=== PATIENT | female | born 1960 | race Asian ===

== ENCOUNTER 2017-04-30 15:49 | Emergency (ER) | payer MEDICARE, MEDICAID ==
--- NOTE | 2017-04-30 16:19 | ED Physician Chart ---
Chief Complaint/HPI - Patient Information Date Seen:: 04/30/17 Time Seen:: 16:08 Chief Complaint:: BLOOD IN THE URINE History of Present Illness:: THIS IS A CHRONICALLY 57 YO FEMALE SENT FROM THE SENIOR CARE BECAUSE OF BLOOD IN THE URINE. SHE HAS BRAIN DEGENERATIVE DISEASE AND HAS TROUBLE WITH ORAL INTAKE. SHE HAS HYPERTENSION AND SEIZURE DISORDER. Allergies:: Allergies Allergy/AdvReac Type Severity Reaction Status Date / Time No Known Allergies Allergy Verified 04/30/17 16:02 Vitals:: Vital Signs - 8 hr 04/30/17 16:03 Temp 99.2 F HR 53 RR 16 BP 140/92 O2 Sat % 95 Historian:: EMS, Medical Records Review:: Nurse's Note Reviewed, Transfer documents Reviewed Review of Systems - Review of Systems General/Constitutional: No fever, No chills, No weight loss, No weakness, No diaphoresis, No edema, No loss of appetite Skin: No skin lesions, No rash, No bruising Head: No headache, No light-headedness Eyes: No loss of vision, No pain, No diplopia ENT: No earache, No nasal drainage, No sore throat, No tinnitus Neck: No neck pain, No swelling, No thyromegaly, No stiffness, No mass noted Cardio Vascular: No chest pain, No palpitations, No PND, No orthopnea, No edema Pulmonary: No SOB, No cough, No sputum, No wheezing GI: No nausea, No vomiting, No diarrhea, No pain, No melena, No hematochezia, No constipation, No hematemesis G/U: No dysuria, No frequency, No hematuria Musculoskeletal: No bone or joint pain, No back pain, No muscle pain Endocrine: No polyuria, No polydipsia Psychiatric: No prior psych history, No depression, No anxiety, No suicidal ideation Hematopoietic: No bruising, No lymphadenopathy Allergic/Immuno: No urticaria, No angioedema Neurological: No syncope, Focal symptoms (LOWER EXTREMITIES PARALYSIS), Weakness , No paresthesia, No headache, No seizure, No dizziness, No confusion, No vertigo Past Medical History - Past Medical History Obtainable: Yes Past Medical History: HTN, CVA/TIA, Seizures, Dementia Family History: None Social History: Non Smoker, No Alcohol, No Drug Use Surgical History: None Psychiatricy History: None Medication: Reviewed Family Medical History - Family Member Mother History Unknown: Yes Physical Exam - Physical Examination General/Constitutional: Awake, Well-developed, well-nourished, Alert, No distress, GCS 15, Non-toxic appearing, Ambulatory Other Gen/Cons comments:: DISORIENTED TIMES FOUR AND VERBAL AT TIMES. Head: Atraumatic Eyes: Lids, conjuctiva normal, PERRL, EOMI Skin: Nl inspection, No rash, No skin lesions, No ecchymosis, Well hydrated, No lymphadenopathy ENMT: External ears, nose nl, Nasal exam nl, Lips, teeth, gums nl Neck: Nontender, Full ROM w/o pain, No JVD, No nuchal rigidity, No bruit, No mass, No stridor Respiratory: Nl effort/Exclusion, Clear to Auscultation, No Wheeze/Rhonchi/Rales Cardio Vascular: RRR, No murmur, gallop, rubs, NL S1 S2 GI: No tenderness/rebounding/guarding, No organomegaly, No hernia, Normal BS's, Nondistended, No mass/bruits, No McBurney tenderness : No CVA tenderness Other comments:: HAS A DIAPER ON Extremities: No tenderness or effusion, Full ROM, normal strength in all extremities, No edema, Normal digits & nails Neuro/Psych: DTR's symmetric, Normal sensory exam, Mood normal, Normal gait Other Neuro/Psych comments:: SHE HAS LOWER EXTREMITIES PARALYSIS WITH MUSCLE WASTING. Misc: normal gait, Normal back, No paraspinal tenderness Labs/Radiology/EKG Results - Lab Results Results: Abnormal Lab Results 04/30/17 04/30/17 04/30/17 16:13 16:13 16:13 WBC 8.0 RBC 4.63 Hgb 15.4 Hct 44.4 MCV 95.9 MCH 33.2 H MCHC Differential 34.6 RDW 13.6 Plt Count 262 MPV 6.7 Neutrophils % 68.2 Lymphocytes % 22.2 Monocytes % 8.5 Eosinophils % 0.4 Basophils % 0.7 Sodium 138 Potassium 3.9 Chloride 108 H Carbon Dioxide 25.7 Anion Gap 8.2 BUN 19 Creatinine 0.3 L Est GFR ( Amer) > 60.0 Est GFR (Non-Af Amer) > 60.0 BUN/Creatinine Ratio 63.3 Glucose 97 Calcium 9.2 Total Bilirubin 0.6 AST 25 ALT 54 H Alkaline Phosphatase 58 Troponin I < 0.01 L Total Protein 5.9 L Albumin 3.5 L Globulin 2.4 Albumin/Globulin Ratio 1.5 TSH Urine Source Urine Color Urine Clarity Urine pH Ur Specific [place] Urine Protein Urine Glucose (UA) Urine Ketones Urine Blood Urine Nitrate Urine Bilirubin Urine Urobilinogen Ur Leukocyte Esterase Urine RBC Urine WBC Ur Epithelial Cells Urine Bacteria Urine Mucus 04/30/17 04/30/17 16:13 16:30 WBC RBC Hgb Hct MCV MCH MCHC Differential RDW Plt Count MPV Neutrophils % Lymphocytes % Monocytes % Eosinophils % Basophils % Sodium Potassium Chloride Carbon Dioxide Anion Gap BUN Creatinine Est GFR ( Amer) Est GFR (Non-Af Amer) BUN/Creatinine Ratio Glucose Calcium Total Bilirubin AST ALT Alkaline Phosphatase Troponin I Total Protein Albumin Globulin Albumin/Globulin Ratio TSH 1.86 Urine Source CLEAN C Urine Color YELLOW Urine Clarity CLEAR Urine pH 6.0 Ur Specific [place] 1.010 Urine Protein NEGATIVE Urine Glucose (UA) NEGATIVE Urine Ketones NEGATIVE Urine Blood NEGATIVE Urine Nitrate NEGATIVE Urine Bilirubin NEGATIVE Urine Urobilinogen 0.2 Ur Leukocyte Esterase NEGATIVE Urine RBC NONE SEEN Urine WBC 2-5 Ur Epithelial Cells FEW Urine Bacteria FEW Urine Mucus FEW - Radiology Results Results: CHEST X-RAY =NAD - EKG Interpretations EKG Time:: 15:58 Rate & Rhythm: RATE= 57, [place]: LEFT AXIS Assessment - Assessment General Assessment: DEMENTIA ED Septic Shock - . Is Septic Shock (SBP<90, OR Lactate>4 mmol\L) present?: No - <6hrs of presentation: Vital Signs: Vital Signs - 8 hr 04/30/17 16:03 Temp 99.2 F HR 53 RR 16 BP 140/92 O2 Sat % 95 Reassessment (Disposition) - Reassessment Reassessment Condition:: Unchanged - Diagnosis Diagnosis:: DEMENTIA - Aftercare/Follow up Instructions Aftercare/Follow-Up Instructions:: Counseled pt regarding lab results/diagnosis & need follow up, Refer to Discharge Instructions, Counseled pt & family regarding lab results/diagnosis & need follow up - Patient Disposition Discharge/Transfer:: Sedimentationist Care - SNF Condition at Disposition:: Unchanged ED Discharge Plan - Patient Disposition Admit/Discharge/Transfer: Discharge/Transfered to SNF Instructions: Dementia Additional Instructions: TOLERATED.
[2017-04-30 16:47] LABS: % BASOPHILS 0.7 % (0.0-2.0); % EOSINOPHILS 0.4 % (0.0-5.0); % LYMPHOCYTES 22.2 % (20.0-50.0); % MONOCYTES 8.5 % (2.0-10.0); % NEUTROPHILS 68.2 % (40.0-80.0); HEMATOCRIT 44.4 % (35.0-45.0); HEMOGLOBIN 15.4 gm/dL (11.7-15.5); MEAN CELL VOLUME 95.9 fl (81-100); MEAN CORPUSCULAR HEMOGLOBIN 33.2 pg (27.0-31.0); MEAN CORPUSCULAR HGB CONC 34.6 pg (28.0-36.0); MEAN PLATELET VOLUME 6.7 fl; NEUTROPHILE ABSOLUTE 5.4 Th/cmm (1.8-8.0); PLATELET COUNT 262 Th/cmm (150-400); RED BLOOD COUNT 4.63 Mil/cmm (3.80-5.10); RED CELL DISTRIBUTION WIDTH 13.6 % (11.5-20.0)
[2017-04-30 17:05] LABS: ALB/GLOB RATIO 1.5 (1.0-1.8); ALKALINE PHOSPHATASE 58 U/L (34-104); ANION GAP 8.2 (7.0-16.0); BILIRUBIN,TOTAL 0.6 mg/dL (0.3-1.0); BUN - UREA NITROGEN 19 mg/dL (7-25); BUN/CREATININE RATIO 63.3; CALCIUM SERUM 9.2 mg/dL (8.6-10.3); CARBON DIOXIDE 25.7 mEq/L (21.0-31.0); CHLORIDE 108 mEq/L (98-107); CREATININE - SERUM 0.3 mg/dL (0.6-1.2); GLUCOSE 97 mg/dL (70-105); POTASSIUM SERUM 3.9 mEq/L (3.5-5.1); SGOT 25 U/L (13-39); SGPT/ALT 54 U/L (7-52); SODIUM SERUM 138 mEq/L (136-145)
[2017-04-30 17:07] LABS: URINE BILIRUBIN NEGATIVE (NEGATIVE); URINE BLOOD NEGATIVE (NEGATIVE); URINE GLUCOSE (UA) NEGATIVE (NEGATIVE); URINE KETONE NEGATIVE (NEGATIVE); URINE PROTEIN NEGATIVE (NEGATIVE); URINE UROBILINOGEN 0.2 E.U./dL (0.2 - 1.0)
[2017-04-30 17:12] LABS: URINE COLOR YELLOW
[2017-04-30 17:14] LABS: URINE BACTERIA FEW /hpf (NONE SEEN); URINE EPITHELIAL CELLS FEW /lpf (FEW); URINE RBC NONE SEEN /hpf (0-5)
--- NOTE | 2017-05-01 09:52 | Diagnostic Imaging Report ---
Portable chest x-ray Time: 1618 History: Shortness of breath Allowing for portable technique the heart size is normal. No focal pulmonary parenchymal processes. No hilar or mediastinal abnormalities. Mild left basilar atelectasis is noted Impression: No acute abnormalities.
== END 2017-04-30 19:25 ==
LOC: ER 15:49
DX: F03.90 Unspecified dementia, unspecified severity, without behavioral disturbance, psychotic disturbance, mood disturbance, and anxiety (principal); I10 Essential (primary) hypertension; G40.909 Epilepsy, unspecified, not intractable, without status epilepticus; Z86.73 Personal history of transient ischemic attack (TIA), and cerebral infarction without residual deficits
CPT/HCPCS: 36415-UA; 71010-TC; 80053-TC; 81001-TC; 84443-TC; 84484-TC; 85025-TC; 86592-TC; 93005; Z7610

== ENCOUNTER 2018-04-16 15:53 | Inpatient (IN) | payer MEDICARE, MEDICAID ==
--- NOTE | 2018-04-16 16:25 | ED Physician Chart ---
ED Chief Complaint/HPI - Patient Information Date Seen:: 04/16/18 Time Seen:: 16:10 Chief Complaint:: chest congestion History of Present Illness:: THIS IS A 58 YO FEMALE CHRONICALLY ILL FEMALE WHO IS DEMENTED AND PARAPLEGIC SENT TO THIS ER FOR AN EVALUATION OF HER CHEST CONGESTION. SHE HAS HYPERTENSION, CVA, PSYCHOSIS AND DEMENTIA. Allergies:: Allergies Allergy/AdvReac Type Severity Reaction Status Date / Time No Known Allergies Allergy Verified 04/30/17 16:02 Vitals:: Vital Signs - 8 hr 04/16/18 16:03 Temp 97.2 F HR 109 RR 22 BP 137/92 O2 Sat % 94 Historian:: EMS, Medical Records Review:: Nurse's Note Reviewed, Transfer documents Reviewed ED Review of Systems - Review of Systems General/Constitutional: No fever, No chills, No weight loss, No weakness, No diaphoresis, No edema, No loss of appetite, Other (PATIENT UNABLE TO RESPONDED) Skin: No skin lesions, No rash, No bruising Head: No headache, No light-headedness Eyes: No loss of vision, No pain, No diplopia ENT: No earache, No nasal drainage, No sore throat, No tinnitus Neck: No neck pain, No swelling, No thyromegaly, No stiffness, No mass noted Cardio Vascular: No chest pain, No palpitations, No PND, No orthopnea, No edema Pulmonary: No SOB, No cough, No sputum, No wheezing GI: No nausea, No vomiting, No diarrhea, No pain, No melena, No hematochezia, No constipation, No hematemesis G/U: No dysuria, No frequency, No hematuria Musculoskeletal: No bone or joint pain, No back pain, No muscle pain Endocrine: No polyuria, No polydipsia Psychiatric: No prior psych history, No depression, No anxiety, No suicidal ideation Hematopoietic: No bruising, No lymphadenopathy Allergic/Immuno: No urticaria, No angioedema Neurological: No syncope, No focal symptoms, No weakness, No paresthesia, No headache, No seizure, No dizziness, No confusion, No vertigo ED Past Medical History - Past Medical History Obtainable: Yes Past Medical History: HTN, DM, CVA/TIA, Dementia Family History: None Social History: Non Smoker, No Alcohol, No Drug Use, Care Facility Surgical History: None Psychiatricy History: Bipolar, Dementia Medication: Reviewed Family Medical History - Family Member Mother History Unknown: Yes ED Physical Exam - Physical Examination General/Constitutional: Awake, Well-developed, well-nourished, Alert, No distress, GCS 15, Non-toxic appearing, Ambulatory Other Gen/Cons comments:: LETHARGIC AND CONSTANTLY SCREAMING OUT AND IS OBESE Head: Atraumatic Eyes: Lids, conjuctiva normal, PERRL, EOMI Skin: No rash (RASH AROUND THE BASE OF THE NECK), No skin lesions, No ecchymosis , Well hydrated, No lymphadenopathy ENMT: External ears, nose nl, Nasal exam nl, Lips, teeth, gums nl Neck: Nontender, Full ROM w/o pain, No JVD, No nuchal rigidity, No bruit, No mass, No stridor Respiratory: Nl effort/Exclusion, Clear to Auscultation, No Wheeze/Rhonchi/Rales Cardio Vascular: RRR, No murmur, gallop, rubs, NL S1 S2 GI: No tenderness/rebounding/guarding, No organomegaly, No hernia, Normal BS's, Nondistended, No mass/bruits, No McBurney tenderness : No CVA tenderness Extremities: No tenderness or effusion, Full ROM, normal strength in all extremities, No edema, Normal digits & nails Neuro/Psych: Alert/oriented (THE PATIENT IS DISORIENTED TIMES FOUR), DTR's symmetric, Normal sensory exam, Normal motor strength (THE PATIENT HAS PARALYSIS OF THE BOTH LOWER WITH RIGHT UPPER EXTREMITY PARALYSIS.), Judgement/ insight normal, Mood normal, Normal gait, No focal deficits Misc: Normal back, No paraspinal tenderness ED Labs/Radiology/EKG Results - Lab Results Results: Abnormal Lab Results 04/16/18 04/16/18 04/16/18 16:07 16:10 16:10 WBC 11.4 H RBC 5.12 H Hgb 17.1 Hct 51.3 MCV 100.2 H MCH 33.3 H MCHC Differential 33.3 RDW 15.9 Plt Count 144 L MPV 9.2 Neutrophils % 70.9 Lymphocytes % 23.9 Monocytes % 4.3 Eosinophils % 0.1 Basophils % 0.8 PT 15.0 H INR 1.41 H PTT (Actin FS) 23.1 L Specimen Source Arterial Sample Site Right Radial pH 7.62 H* pCO2 35.0 pO2 45.0 L* HCO3 35.6 H Base Excess 13.9 H O2 Saturation 89.0 L Manjeet Test Positive Vent Rate NA Inspired O2 21 Tidal Volume NA PEEP NA Pressure (ins/psv/peep) NA Critical Value SH Sodium Potassium Chloride Carbon Dioxide Anion Gap BUN Creatinine Est GFR ( Amer) Est GFR (Non-Af Amer) BUN/Creatinine Ratio Glucose Calcium Total Bilirubin AST ALT Alkaline Phosphatase Troponin I Total Protein Albumin Globulin Albumin/Globulin Ratio TSH Valproic Acid 04/16/18 04/16/18 04/16/18 16:10 16:10 16:10 WBC RBC Hgb Hct MCV MCH MCHC Differential RDW Plt Count MPV Neutrophils % Lymphocytes % Monocytes % Eosinophils % Basophils % PT INR PTT (Actin FS) Specimen Source Sample Site pH pCO2 pO2 HCO3 Base Excess O2 Saturation Manjeet Test Vent Rate Inspired O2 Tidal Volume PEEP Pressure (ins/psv/peep) Critical Value Sodium 146 H Potassium 2.6 L* Chloride 105 Carbon Dioxide 31.6 H Anion Gap 12.0 BUN 17 Creatinine 0.4 L Est GFR ( Amer) > 60.0 Est GFR (Non-Af Amer) > 60.0 BUN/Creatinine Ratio 42.5 Glucose 101 Calcium 8.8 Total Bilirubin 0.9 AST 41 H ALT 49 Alkaline Phosphatase 47 Troponin I 0.05 Total Protein 5.4 L Albumin 3.2 L Globulin 2.2 Albumin/Globulin Ratio 1.5 TSH 8.06 H Valproic Acid 04/16/18 16:10 WBC RBC Hgb Hct MCV MCH MCHC Differential RDW Plt Count MPV Neutrophils % Lymphocytes % Monocytes % Eosinophils % Basophils % PT INR PTT (Actin FS) Specimen Source Sample Site pH pCO2 pO2 HCO3 Base Excess O2 Saturation Manjeet Test Vent Rate Inspired O2 Tidal Volume PEEP Pressure (ins/psv/peep) Critical Value Sodium Potassium Chloride Carbon Dioxide Anion Gap BUN Creatinine Est GFR ( Amer) Est GFR (Non-Af Amer) BUN/Creatinine Ratio Glucose Calcium Total Bilirubin AST ALT Alkaline Phosphatase Troponin I Total Protein Albumin Globulin Albumin/Globulin Ratio TSH Valproic Acid 86.6 - Radiology Results Results: ct scan = right lower lobe pneumonia - EKG Interpretations EKG Time:: 16:34 Rate & Rhythm: rate = 121 sinus tach [place]: right ED Assessment - Assessment General Assessment: pneumonia ED Septic Shock - . Is Septic Shock (SBP<90, OR Lactate>4 mmol\L) present?: No - <6hrs of presentation: Vital Signs: Vital Signs - 8 hr 04/16/ 16:03 Temp 97.2 F HR 109 RR 22 BP 137/92 O2 Sat % 94 ED Reassessment (Disposition) - Reassessment Reassessment Condition:: Improved - Diagnosis Diagnosis:: pneumonia bilateral effusions demented - Patient Disposition Discharge/Transfer:: Acute Care w/in this hosp Admitted to:: Telemetry Admitting Medical Physician:: Sadaf Wallace Condition at Disposition:: Improved
[2018-04-16 16:41] LABS: % BASOPHILS 0.8 % (0.0-2.0); % EOSINOPHILS 0.1 % (0.0-5.0); % LYMPHOCYTES 23.9 % (20.0-50.0); % MONOCYTES 4.3 % (2.0-10.0); % NEUTROPHILS 70.9 % (40.0-80.0); BASOPHILE ABSOLUTE 0.1 Th/cumm (0-0.2); HEMATOCRIT 51.3 % (41.0-60); HEMOGLOBIN 17.1 gm/dL (12-16); LYMPHOCYTE ABSOLUTE 2.7 Th/cmm (1.5-3.0); MEAN CELL VOLUME 100.2 fl (81-100); MEAN CORPUSCULAR HEMOGLOBIN 33.3 pg (27.0-31.0); MEAN CORPUSCULAR HGB CONC 33.3 pg (28.0-36.0); MEAN PLATELET VOLUME 9.2 fl; MONOCYTE ABSOLUTE 0.5 Th/cmm (0.3-1.0); NEUTROPHILE ABSOLUTE 8.1 Th/cmm (1.8-8.0); PLATELET COUNT 144 Th/cmm (150-400); RED BLOOD COUNT 5.12 Mil/cmm (3.80-5.10); RED CELL DISTRIBUTION WIDTH 15.9 % (11.5-20.0); WHITE BLOOD COUNT 11.4 Th/cmm (4.8-10.8)
[2018-04-16 16:54] LABS: ALLEN TEST Positive
[2018-04-16 16:55] LABS: pH 7.62 (7.35-7.45)
[2018-04-16 16:55] LABS: INR 1.41 (0.5-1.4)
[2018-04-16 17:06] LABS: ALB/GLOB RATIO 1.5 (1.0-1.8); ALBUMIN 3.2 gm/dL (3.7-5.3); ALKALINE PHOSPHATASE 47 U/L (34-104); BILIRUBIN,TOTAL 0.9 mg/dL (0.3-1.0); BUN - UREA NITROGEN 17 mg/dL (7-25); CALCIUM SERUM 8.8 mg/dL (8.6-10.3); CARBON DIOXIDE 31.6 mEq/L (21.0-31.0); CHLORIDE 105 mEq/L (98-107); CREATININE - SERUM 0.4 mg/dL (0.6-1.2); GFR AFRICAN-AMERICAN > 60.0 ml/min (>90); GFR NON AFRICAN-AMERICAN > 60.0 ml/min; GLUCOSE 101 mg/dL (70-105); SGOT 41 U/L (13-39); SGPT/ALT 49 U/L (7-52); SODIUM SERUM 146 mEq/L (136-145); TOTAL PROTEIN,SERUM 5.4 gm/dL (6.0-8.3)
[2018-04-16 17:11] LABS: POTASSIUM SERUM 2.6 mEq/L (3.5-5.1)
[2018-04-16] MEDS ORDERED: Potassium Chloride Elixir 20 mEq /15 mL UDC ONE ×2 (17:36→17:42)
[2018-04-16] MEDS ORDERED: Potassium Chloride Elixir 20 mEq /15 mL UDC PO ONE ×2 (17:36→17:37)
[2018-04-16] MEDS ORDERED: Albuterol/Ipratropium Neb 3 ML AERS HHN PRN (19:22)
[2018-04-16] MEDS ORDERED: D5-0.45NS 1,000 ML IV SCH (21:16)
[2018-04-16] MEDS ORDERED: Non-Formulary Item 1 EA (Docusate Sodium [Docusate Sodium] 100 MG) PO PRN (21:43)
[2018-04-16] MEDS: D5-0.45NS w/20 mEq KCL 1,000 ML IV SCH (23:03)
[2018-04-17] MEDS: Albuterol/Ipratropium Neb 3 ML AERS HHN SCH ×9 (00:07→23:56)
[2018-04-17] MEDS: Budesonide 0.5 Mg/2 mL Ud HHN SCH ×3 (00:07→18:24)
[2018-04-17] MEDS: methylPREDNISolone SS 40 mg Vial IV SCH ×4 (00:21→20:40)
[2018-04-17 00:23] LABS: URINE MICROSCOPIC INDICATED? YES; URINE SOURCE FOLEY PORT
[2018-04-17 00:26] LABS: URINE BILIRUBIN SMALL (NEGATIVE); URINE BLOOD MODERATE (NEGATIVE); URINE GLUCOSE (UA) NEGATIVE (NEGATIVE); URINE KETONE TRACE mg/dL (NEGATIVE); URINE LEUKOCYTE ESTERASE NEGATIVE (NEGATIVE); URINE NITRATE NEGATIVE (NEGATIVE); URINE PROTEIN 100 mg/dL (NEGATIVE)
[2018-04-17] MEDS ORDERED: Pneumococcal Vaccine 0.5 mL Vial IM ONE (00:49)
[2018-04-17 00:55] LABS: URINE CLARITY HAZY (CLEAR); URINE COLOR YELLOW
[2018-04-17 01:01] LABS: URINE BACTERIA NONE SEEN /hpf (NONE SEEN); URINE EPITHELIAL CELLS FEW /lpf (FEW); URINE WBC 0-2 /hpf (0-5)
[2018-04-17 05:07] VITALS: BP 118/67
[2018-04-17 06:25] LABS: ALB/GLOB RATIO 1.3 (1.0-1.8); ALBUMIN 2.9 gm/dL (3.7-5.3); ALKALINE PHOSPHATASE 41 U/L (34-104); ANION GAP 11.6 (7.0-16.0); BILIRUBIN,TOTAL 0.7 mg/dL (0.3-1.0); BUN - UREA NITROGEN 21 mg/dL (7-25); CALCIUM SERUM 8.4 mg/dL (8.6-10.3); CARBON DIOXIDE 30.8 mEq/L (21.0-31.0); CHLORIDE 108 mEq/L (98-107); CREATININE - SERUM 0.4 mg/dL (0.6-1.2); GFR AFRICAN-AMERICAN > 60.0 ml/min (>90); GFR NON AFRICAN-AMERICAN > 60.0 ml/min; GLUCOSE 158 mg/dL (70-105); POTASSIUM SERUM 3.4 mEq/L (3.5-5.1); SGOT 31 U/L (13-39); SGPT/ALT 40 U/L (7-52); SODIUM SERUM 147 mEq/L (136-145); TOTAL PROTEIN,SERUM 5.1 gm/dL (6.0-8.3)
--- NOTE | 2018-04-17 07:15 | History and Physical ---
History of Present Illness - HPI Chief Complaint: Chest Congestion HPI: 58 y/o F who presents to [facility] for shortness of breath and chest congestion noted at the SNF. While in the ER patient had a CT chest which revealed the following ... - Radiology Results Results: ct scan = right lower lobe pneumonia Patient was started on IV antibiotics and given breathing treatements. While in the ER, the patient had the following labwork which revealed ... ED Labs/Radiology/EKG Results - Lab Results Results: Abnormal Lab Results 04/16/18 04/16/18 04/16/18 16:07 16:10 16:10 WBC 11.4 H RBC 5.12 H Hgb 17.1 Hct 51.3 MCV 100.2 H MCH 33.3 H MCHC Differential 33.3 RDW 15.9 Plt Count 144 L MPV 9.2 Neutrophils % 70.9 Lymphocytes % 23.9 Monocytes % 4.3 Eosinophils % 0.1 Basophils % 0.8 PT 15.0 H INR 1.41 H PTT (Actin FS) 23.1 L Specimen Source Arterial Sample Site Right Radial pH 7.62 H* pCO2 35.0 pO2 45.0 L* HCO3 35.6 H Base Excess 13.9 H O2 Saturation 89.0 L Manjeet Test Positive Vent Rate NA Inspired O2 21 Tidal Volume NA PEEP NA Pressure (ins/psv/peep) NA Critical Value SH Sodium Potassium Chloride Carbon Dioxide Anion Gap BUN Creatinine Est GFR ( Amer) Est GFR (Non-Af Amer) BUN/Creatinine Ratio Glucose Calcium Total Bilirubin AST ALT Alkaline Phosphatase Troponin I Total Protein Albumin Globulin Albumin/Globulin Ratio TSH Valproic Acid 04/16/18 04/16/18 04/16/18 16:10 16:10 16:10 WBC RBC Hgb Hct MCV MCH MCHC Differential RDW Plt Count MPV Neutrophils % Lymphocytes % Monocytes % Eosinophils % Basophils % PT INR PTT (Actin FS) Specimen Source Sample Site pH pCO2 pO2 HCO3 Base Excess O2 Saturation Manjeet Test Vent Rate Inspired O2 Tidal Volume PEEP Pressure (ins/psv/peep) Critical Value Sodium 146 H Potassium 2.6 L* Chloride 105 Carbon Dioxide 31.6 H Anion Gap 12.0 BUN 17 Creatinine 0.4 L Est GFR ( Amer) > 60.0 Est GFR (Non-Af Amer) > 60.0 BUN/Creatinine Ratio 42.5 Glucose 101 Calcium 8.8 Total Bilirubin 0.9 AST 41 H ALT 49 Alkaline Phosphatase 47 Troponin I 0.05 Total Protein 5.4 L Albumin 3.2 L Globulin 2.2 Albumin/Globulin Ratio 1.5 TSH 8.06 H Valproic Acid 04/16/18 16:10 WBC RBC Hgb Hct MCV MCH MCHC Differential RDW Plt Count MPV Neutrophils % Lymphocytes % Monocytes % Eosinophils % Basophils % PT INR PTT (Actin FS) Specimen Source Sample Site pH pCO2 pO2 HCO3 Base Excess O2 Saturation Manjeet Test Vent Rate Inspired O2 Tidal Volume PEEP Pressure (ins/psv/peep) Critical Value Sodium Potassium Chloride Carbon Dioxide Anion Gap BUN Creatinine Est GFR ( Amer) Est GFR (Non-Af Amer) BUN/Creatinine Ratio Glucose Calcium Total Bilirubin AST ALT Alkaline Phosphatase Troponin I Total Protein Albumin Globulin Albumin/Globulin Ratio TSH Valproic Acid 86.6 Patient was subsequently admitted for further evaluation and treatment. Vital Signs: Last Vital Signs Temp 87.8 F 04/17/18 04:00 Pulse 78 04/17/18 04:00 Resp 20 04/17/18 06:48 BP 118/67 04/17/18 05:07 Pulse Ox 96 04/17/18 06:48 Past Medical History Cardiovascular: Report: CAD, HTN, Hyperlipidemia Pulmonary: Report: No Pertinent Hx LONG TERM CARE PHARMACIST: Report: CVA (with hemiplegia and hemiparesis), Seizure, Other (aphasia) GI: Report: GERD Psych: Report: Anxiety Musculoskeletal: Report: Osteoarthritis, Muscle Atrophy, Weakness Infectious Disease: Report: No Pertinent Hx Renal/: Report: No Pertinent Hx Endocrine: Report: No Pertinent Hx Dermatology: Report: No Pertinent Hx - Past Surgical History Past Surgical History: No pertinent Hx Family Medical History - Family Member Mother History Unknown: Yes Social History Smoke: No Alcohol: None Drugs: None Lives: Custodial - Medications Home Medications: Home Medication Medication Instructions Recorded Type Amlodipine Besylate 10 mg PO DAILY 04/30/17 History Cyanocobalamin [Vitamin B12] 100 mcg PO DAILY 04/30/17 History Docusate Sodium 100 mg PO DAILY 04/30/17 History Docusate Sodium 100 mg PO DAILY PRN 04/30/17 History Levetiracetam [Keppra] 500 mg PO BID 04/30/17 History Metoprolol Tartrate 25 mg PO BID 04/30/17 History Multivitamin w/ Minerals 1 tab PO DAILY 04/30/17 History [Theragran M] Amlodipine Besylate 10 mg PO DAILY 04/16/18 History Bisacodyl [Dulcolax 10 Mg Supp] 10 mg RC DAILY PRN 04/16/18 History Divalproex ER [Depakote ER] 500 mg PO BID 04/16/18 History Melatonin/Pyridoxine HCl (B6) 1 each PO 04/16/18 History [Melatonin 3 mg Tablet] QUEtiapine Fumarate [SEROquel] 12.5 mg PO BID 04/16/18 History Simvastatin [Zocor] 10 mg PO HS 04/16/18 History - Allergies Allergies/Adverse Reactions: Allergies Allergy/AdvReac Type Severity Reaction Status Date / Time No Known Allergies Allergy Verified 04/30/17 16:02 Review of Systems - Review of Systems Constitutional: Report: No Significant Eyes: Report: No Significant ENT: Report: No Significant Respiratory: Report: Shortness of Breath Cardiovascular: Report: No Significant Gastrointestinal: Report: No Significant Genitourinary: Report: No Significant Musculoskeletal: Report: No Significant Skin: Report: No Significant Neurological: Report: No Significant Physical Exam - Physical Exam HEENT: Report: Ears Nose Throat within normal limits, Pharnyx within normal limits Neck: Report: Within normal limits Cardiovascular Systems: Report: +s1/s2 noted Respiratory: Report: Crackles (right lung base) Abdomen: Report: Non-tender to palpation Back: Report: Inspection of back is within normal limits. Extremities: Report: Non-tender to palpation. Skin: Report: Color of skin is within normal limits Neuro/Psych: Report: Mood affect is within normal limits, A+Ox3 - Lab Results All Lab Results last 24 hours: Laboratory Results - last 24 hr 04/16/18 04/16/18 04/16/18 16:07 16:10 16:10 WBC 11.4 H RBC 5.12 H Hgb 17.1 Hct 51.3 MCV 100.2 H MCH 33.3 H MCHC Differential 33.3 RDW 15.9 Plt Count 144 L MPV 9.2 Neutrophils % 70.9 Lymphocytes % 23.9 Monocytes % 4.3 Eosinophils % 0.1 Basophils % 0.8 PT 15.0 H INR 1.41 H PTT (Actin FS) 23.1 L Specimen Source Arterial Sample Site Right Radial pH 7.62 H* pCO2 35.0 pO2 45.0 L* HCO3 35.6 H Base Excess 13.9 H O2 Saturation 89.0 L Manjeet Test Positive Vent Rate NA Inspired O2 21 Tidal Volume NA PEEP NA Pressure (ins/psv/peep) NA Critical Value SH Sodium Potassium Chloride Carbon Dioxide Anion Gap BUN Creatinine Est GFR ( Amer) Est GFR (Non-Af Amer) BUN/Creatinine Ratio Glucose Calcium Magnesium Total Bilirubin AST ALT Alkaline Phosphatase Troponin I B-Natriuretic Peptide Total Protein Albumin Globulin Albumin/Globulin Ratio TSH Urine Source Urine Color Urine Clarity Urine pH Ur Specific [place] Urine Protein Urine Glucose (UA) Urine Ketones Urine Blood Urine Nitrate Urine Bilirubin Urine Urobilinogen Ur Leukocyte Esterase Urine RBC Urine WBC Ur Epithelial Cells Urine Bacteria Valproic Acid 04/16/18 04/16/18 04/16/18 16:10 16:10 16:10 WBC RBC Hgb Hct MCV MCH MCHC Differential RDW Plt Count MPV Neutrophils % Lymphocytes % Monocytes % Eosinophils % Basophils % PT INR PTT (Actin FS) Specimen Source Sample Site pH pCO2 pO2 HCO3 Base Excess O2 Saturation Manjeet Test Vent Rate Inspired O2 Tidal Volume PEEP Pressure (ins/psv/peep) Critical Value Sodium 146 H Potassium 2.6 L* Chloride 105 Carbon Dioxide 31.6 H Anion Gap 12.0 BUN 17 Creatinine 0.4 L Est GFR ( Amer) > 60.0 Est GFR (Non-Af Amer) > 60.0 BUN/Creatinine Ratio 42.5 Glucose 101 Calcium 8.8 Magnesium Total Bilirubin 0.9 AST 41 H ALT 49 Alkaline Phosphatase 47 Troponin I 0.05 B-Natriuretic Peptide Total Protein 5.4 L Albumin 3.2 L Globulin 2.2 Albumin/Globulin Ratio 1.5 TSH 8.06 H Urine Source Urine Color Urine Clarity Urine pH Ur Specific [place] Urine Protein Urine Glucose (UA) Urine Ketones Urine Blood Urine Nitrate Urine Bilirubin Urine Urobilinogen Ur Leukocyte Esterase Urine RBC Urine WBC Ur Epithelial Cells Urine Bacteria Valproic Acid 04/16/18 04/16/18 04/16/18 16:10 23:40 23:40 WBC RBC Hgb Hct MCV MCH MCHC Differential RDW Plt Count MPV Neutrophils % Lymphocytes % Monocytes % Eosinophils % Basophils % PT INR PTT (Actin FS) Specimen Source Sample Site pH pCO2 pO2 HCO3 Base Excess O2 Saturation Manjeet Test Vent Rate Inspired O2 Tidal Volume PEEP Pressure (ins/psv/peep) Critical Value Sodium Potassium Chloride Carbon Dioxide Anion Gap BUN Creatinine Est GFR ( Amer) Est GFR (Non-Af Amer) BUN/Creatinine Ratio Glucose Calcium Magnesium 2.1 Total Bilirubin AST ALT Alkaline Phosphatase Troponin I B-Natriuretic Peptide 232.0 H Total Protein Albumin Globulin Albumin/Globulin Ratio TSH Urine Source Urine Color Urine Clarity Urine pH Ur Specific [place] Urine Protein Urine Glucose (UA) Urine Ketones Urine Blood Urine Nitrate Urine Bilirubin Urine Urobilinogen Ur Leukocyte Esterase Urine RBC Urine WBC Ur Epithelial Cells Urine Bacteria Valproic Acid 86.6 04/17/18 04/17/18 00:15 05:50 WBC RBC Hgb Hct MCV MCH MCHC Differential RDW Plt Count MPV Neutrophils % Lymphocytes % Monocytes % Eosinophils % Basophils % PT INR PTT (Actin FS) Specimen Source Sample Site pH pCO2 pO2 HCO3 Base Excess O2 Saturation Manjeet Test Vent Rate Inspired O2 Tidal Volume PEEP Pressure (ins/psv/peep) Critical Value Sodium 147 H Potassium 3.4 L Chloride 108 H Carbon Dioxide 30.8 Anion Gap 11.6 BUN 21 Creatinine 0.4 L Est GFR ( Amer) > 60.0 Est GFR (Non-Af Amer) > 60.0 BUN/Creatinine Ratio 52.5 Glucose 158 H Calcium 8.4 L Magnesium Total Bilirubin 0.7 AST 31 ALT 40 Alkaline Phosphatase 41 Troponin I B-Natriuretic Peptide Total Protein 5.1 L Albumin 2.9 L Globulin 2.2 Albumin/Globulin Ratio 1.3 TSH Urine Source [place] Urine Color YELLOW Urine Clarity HAZY Urine pH 6.0 Ur Specific [place] 1.025 Urine Protein 100 H Urine Glucose (UA) NEGATIVE Urine Ketones TRACE Urine Blood MODERATE H Urine Nitrate NEGATIVE Urine Bilirubin SMALL H Urine Urobilinogen 1.0 Ur Leukocyte Esterase NEGATIVE Urine RBC 5-10 H Urine WBC 0-2 Ur Epithelial Cells FEW Urine Bacteria NONE SEEN Valproic Acid - Assessment Assessment: LLL pneumonia abdominal mass Sepsis UTI leukocytosis Willie. pleural effusion CVA w/ hemiplegia Seizure disorder HTN Hyperlipidemia CAD PUD GERD OA - Plan Plan: pulmonary consult w/ Dr. Gato Jiménez IV Rocephin and IV Azithromycin repeat CBC, CMP breathing treatments K+ supplements ID consult CT ab/pelvis
[2018-04-17 07:21] LABS: % BASOPHILS 0.1 % (0.0-2.0); % EOSINOPHILS 0.1 % (0.0-5.0); % LYMPHOCYTES 17.6 % (20.0-50.0); % MONOCYTES 5.2 % (2.0-10.0); HEMATOCRIT 49.8 % (41.0-60); HEMOGLOBIN 16.4 gm/dL (12-16); LYMPHOCYTE ABSOLUTE 2.4 Th/cmm (1.5-3.0); MEAN CELL VOLUME 100.8 fl (81-100); MEAN CORPUSCULAR HEMOGLOBIN 33.1 pg (27.0-31.0); MEAN CORPUSCULAR HGB CONC 32.9 pg (28.0-36.0); MEAN PLATELET VOLUME 9.6 fl; MONOCYTE ABSOLUTE 0.7 Th/cmm (0.3-1.0); NEUTROPHILE ABSOLUTE 10.8 Th/cmm (1.8-8.0); PLATELET COUNT 134 Th/cmm (150-400); RED BLOOD COUNT 4.94 Mil/cmm (3.80-5.10); RED CELL DISTRIBUTION WIDTH 15.8 % (11.5-20.0)
[2018-04-17 07:23] LABS: WHITE BLOOD COUNT 13.9 Th/cmm (4.8-10.8)
--- NOTE | 2018-04-17 09:17 | Diagnostic Imaging Report ---
Exam: Chest x-ray 2 views. HISTORY: Pneumonia. Findings: Frontal lateral views of chest reviewed compared to prior study 04/30/2017 demonstrates cardiomegaly. There is evidence for left lower lobe pneumonia and effusion. Bony thorax intact. The aortic arch calcified. IMPRESSION: 1. Cardiomegaly 2. Left lower lobe pneumonia and effusion. Follow-up examination is recommended.
[2018-04-17] MEDS: Multivitamin w/ Minerals Tab PO SCH (09:30)
--- NOTE | 2018-04-17 09:42 | Diagnostic Imaging Report ---
Exam: CT examination of the chest HISTORY: Congestion. Total DLP equals 3041 CTDI equals 10.0 Findings: Multiple contiguous thin section of the chest were obtained from thoracic outlet to the upper abdomen without the administration of contrast material therefore the study is limited. The study demonstrates normal appearance of great vessels of the neck adenopathy cannot be excluded due to lack of contrast material. Mediastinal structures midline the heart is prominent. The aorta is calcified. There is evidence of basilar atelectasis bilaterally with pleural thickening. No acute pulmonic infiltrates appreciated. Bony thorax demonstrate no evidence for lytic or blastic lesions. The upper abdomen and straight cholelithiasis. The stomach is enlarged there is a question of a dense fundus of the stomach measuring 10 cm in the AP diameter this might represent a stomach neoplasm clinical correlation and endoscopy would be helpful. Examination the abdomen with contrast material may be helpful. Incidentally noted nonobstructing right renal calculus. IMPRESSION: Cardiomegaly, atherosclerotic calcification of aortic arch Basilar atelectasis with pleural thickening early right basilar infiltrate cannot be excluded follow-up dictation recommended. Large intra-abdominal mass abutting the left lobe of liver and stomach measuring 10 cm in diameter. It arises from the stomach is noted clear. CT examination of the abdomen with contrast material is recommended. COMPARISON to old studies would be helpful. The nurses station was notified of findings.
[2018-04-17] MEDS: Azithromycin 500 MG in Sodium Chloride 0.9% 250 ML IV SCH (11:18)
[2018-04-17] MEDS ORDERED: IOHEXOL 300mgI/mL 100 ML VIAL ONE (12:37)
[2018-04-17] MEDS ORDERED: Non-Formulary Item 1 EA (Melatonin/Pyridoxine Hcl (B6) [Melatonin 3 Mg Tablet] 1 EACH) PO SCH (17:00)
--- NOTE | 2018-04-17 22:36 | Consultation ---
DATE OF CONSULTATION: 04/16/2018 PULMONARY AND CRITICAL CARE CONSULTATION REASON FOR CONSULTATION: "Chest congestion with respiratory failure." CONSULT NOTE: This is a 58-year-old female basically coming from the convalescent home. The patient has a multitude of medical therapy and she is quite altered. Meaningful history could not be taken as there is a G-tube, was admitted initially "because of chest congestion and shortness of breath." Subsequently after coming in the hospital, the patient's symptoms got more worse, hence I was asked to see this patient for further care and necessary treatment. Unfortunately, the patient is not able to give me any history at this particular time. The patient barely opens eyes, mildly responds to the painful stimuli, but otherwise unremarkable. The patient's past medical history is seizure disorder, history of CVA, history of anxiety disorder, history of muscle wasting with history of contractures of the right side, history of recurrent urosepsis as well as a history of being a "fairly vegetative state" according to the notes from the convalescent home. Unfortunately, meaningful detailed history from the patient is not available to me at this particular time. PAST MEDICAL HISTORY: As mentioned above. ALLERGIC HISTORY: Nil. SMOKING HISTORY: Nil. PHYSICAL FINDINGS: GENERAL: This is an elderly looking female, is not responding, is currently on BiPAP. VITAL SIGNS: The patient's current recorded vital signs; temperature is 98.0, blood pressure is 97.8, blood pressure is 116/88, saturation is 96%-98%, but currently on a BiPAP at 70% of oxygen. HEENT: Examination of the head is essentially unremarkable. Pupils appear to be equal and reacting to light. Conjunctivae are pink. Sclerae are white. Ears, externally okay. Oral cavity, limited exam being on a BiPAP, appears to have dentures. No nuchal rigidity. Good bilateral carotid upstroke. CHEST: Finding shows diminished air entry with occasional rhonchi. HEART: Regular. ABDOMEN: Soft, nontender. EXTREMITIES: Shows lot of atrophic changes. LABORATORY DATA: The patient's white count is 11,400, hemoglobin 7 grams. The patient's ABG shows severe respiratory alkalosis, initially 1 and potassium is 2.6 and the patient's lactic acid 2.01. IMPRESSION: 1. The patient has acute respiratory failure secondary to tracheobronchitis. There is a questionable right basilar interstitial changes versus atelectasis. 2. Altered level of consciousness, we suspect sleep apnea syndrome. 3. History of cerebrovascular accident, history of seizure disorder, history of "vegetative state with significant muscular atrophy." PLANS AND SUGGESTIONS: I have discussed with the nursing staff at nighttime. We will go ahead and give aggressive inhalation treatment with DuoNeb. We will give Pulmicort. We will give BiPAP. We will get a better evaluation once more studies are available. Overall, prognosis appears to be very much guarded and will be glad to follow along with you. JOB# [id number]
[2018-04-17] MEDS: D5-0.45NS w/20 mEq KCL 1,000 ML IV SCH (23:23)
--- NOTE | 2018-04-18 00:51 | Consultation ---
DATE OF CONSULTATION: 04/17/2018 INFECTIOUS DISEASE CONSULTATION REFERRING PHYSICIAN: Dr. Dominic Chandler. REASON FOR CONSULTATION: Pneumonia. HISTORY OF PRESENT ILLNESS: The patient is a 58-year-old female with a past medical history of dementia, paraplegia, hypertension, CVA, psychosis, was sent to the ER for evaluation of her chest congestion and shortness of breath. On initial evaluation, her temperature was 97.2 degree Fahrenheit and WBC count was 11,400. Today, the patient's WBC count went up to 13,900. The patient was also found to be in respiratory failure with hypoxia. Lactic acid was also on higher side, 2.01. Repeat one was 1.93. Urinalysis showed leukoesterase negative, rbc's 5-10 and wbc's 0-[address] scan of the chest showed a right lower lobe infiltrate pneumonia. Antibiotic-escobar, the patient is receiving Rocephin and Zithromax. The patient is on BiPAP. The patient is unable to give any history because of mental status. PAST MEDICAL HISTORY: Includes CVA, dementia, hypertension, psychosis, paraplegia. ALLERGIES: NKDA. MEDICATIONS: As per medication reconciliation sheet. Antibiotic-escobar, the patient is receiving Rocephin and Zithromax. SOCIAL HISTORY: No history of smoking, alcohol or drug use. Lives at care facility. FAMILY HISTORY: Not available. REVIEW OF SYSTEMS: Unable to give any history, but so far, the patient has no fever. The patient has chest congestion, which is improving. PHYSICAL EXAMINATION: GENERAL: The patient is well developed, not in acute distress. VITAL SIGNS: Shows temperature is 97.6 degrees Fahrenheit, pulse 83, respirations 16, blood pressure 125/84, oxygen saturation 94% on BiPAP. HEENT: Head is normocephalic, atraumatic. Oral cavity moist, pink tongue. Eyes: Pallor is present, no icterus. PERRLA, EOMI. NECK: Supple, no JVD, no carotid bruit. Trachea is midline. CHEST: Bilateral breath sounds. Decreased breath sound. HEART: S1, S2 within normal limits. Regular rhythm. No murmur, no gallop. ABDOMEN: Soft, nontender, nondistended. Bowel sounds present. EXTREMITIES: No cyanosis, no clubbing, no edema. NEUROLOGIC: Unresponsive, responds to painful stimuli only. LABORATORY DATA: WBC count 13,900, hemoglobin 16.4, hematocrit 49.8, platelets are 134,000, neutrophils 77%. Sodium is 147, potassium 3.4, chloride 108, bicarbonate is 30.8, BUN is 21, creatinine 0.4, glucose is 158. Lactic acid was 2.01, it came down to 1.93. Urinalysis showed small bilirubin, negative leukoesterase, negative nitrite. WBC 5-10. No bacteria. CT scan of the chest suggested a possible right lower lobe infiltrates, suspecting pneumonia. IMPRESSION: 1. Lactic acidosis. 2. Right lower lobe pneumonia. 3. Dementia. 4. Cerebrovascular accident. 5. Hypertension. RECOMMENDATIONS: Continue Rocephin and Zithromax. Thank you, Dr. Dominic Chandler for involving me in taking care of this patient. JOB# [id number]
[2018-04-18] MEDS: Albuterol/Ipratropium Neb 3 ML AERS HHN SCH ×7 (02:47→22:12)
[2018-04-18] MEDS: methylPREDNISolone SS 40 mg Vial IV SCH ×3 (04:28→20:56)
[2018-04-18 05:30] LABS: % BASOPHILS 0.2 % (0.0-2.0); % LYMPHOCYTES 15.2 % (20.0-50.0); % MONOCYTES 3.2 % (2.0-10.0); % NEUTROPHILS 81.4 % (40.0-80.0); HEMOGLOBIN 14.1 gm/dL (12-16); LYMPHOCYTE ABSOLUTE 1.7 Th/cmm (1.5-3.0); MEAN CELL VOLUME 100.5 fl (81-100); MEAN CORPUSCULAR HEMOGLOBIN 33.4 pg (27.0-31.0); MEAN CORPUSCULAR HGB CONC 33.2 pg (28.0-36.0); MEAN PLATELET VOLUME 8.9 fl; MONOCYTE ABSOLUTE 0.4 Th/cmm (0.3-1.0); PLATELET COUNT 130 Th/cmm (150-400); RED BLOOD COUNT 4.22 Mil/cmm (3.80-5.10); RED CELL DISTRIBUTION WIDTH 15.9 % (11.5-20.0)
[2018-04-18 05:32] LABS: HEMATOCRIT 42.4 % (41.0-60); WHITE BLOOD COUNT 11.1 Th/cmm (4.8-10.8)
[2018-04-18 05:44] LABS: ALB/GLOB RATIO 1.2 (1.0-1.8); ALBUMIN 2.5 gm/dL (3.7-5.3); ALKALINE PHOSPHATASE 39 U/L (34-104); BILIRUBIN,DIRECT 0.16 mg/dL (0.0-0.2); BILIRUBIN,TOTAL 0.4 mg/dL (0.3-1.0); BUN - UREA NITROGEN 24 mg/dL (7-25); CALCIUM SERUM 8.1 mg/dL (8.6-10.3); CARBON DIOXIDE 32.7 mEq/L (21.0-31.0); CHLORIDE 108 mEq/L (98-107); CREATININE - SERUM 0.4 mg/dL (0.6-1.2); GFR AFRICAN-AMERICAN > 60.0 ml/min (>90); GFR NON AFRICAN-AMERICAN > 60.0 ml/min; GLUCOSE 179 mg/dL (70-105); POTASSIUM SERUM 3.7 mEq/L (3.5-5.1); SGOT 23 U/L (13-39); SGPT/ALT 30 U/L (7-52); SODIUM SERUM 146 mEq/L (136-145); TOTAL PROTEIN,SERUM 4.6 gm/dL (6.0-8.3)
--- NOTE | 2018-04-18 06:56 | General Progress Note ---
Subjective - Review of Systems Service Date: 04/18/18 Subjective: Patient was seen and examined. No acute distress. Patient resting comfortably in bed. For CT abd/pelvis yesterday. Poor PO intake Objective - Results Result Diagrams: 04/18/18 05:00 04/18/18 05:00 Recent Labs: Laboratory Last Values WBC 11.1 Th/cmm (4.8-10.8) H D 04/18/18 05:00 RBC 4.22 Mil/cmm (3.80-5.10) 04/18/18 05:00 Hgb 14.1 gm/dL (12-16) 04/18/18 05:00 Hct 42.4 % (41.0-60) D 04/18/18 05:00 MCV 100.5 fl (81-100) H 04/18/18 05:00 MCH 33.4 pg (27.0-31.0) H 04/18/18 05:00 MCHC Differential 33.2 pg (28.0-36.0) 04/18/18 05:00 RDW 15.9 % (11.5-20.0) 04/18/18 05:00 Plt Count 130 Th/cmm (150-400) L 04/18/18 05:00 MPV 8.9 fl 04/18/18 05:00 Neutrophils % 81.4 % (40.0-80.0) H 04/18/18 05:00 Lymphocytes % 15.2 % (20.0-50.0) L 04/18/18 05:00 Monocytes % 3.2 % (2.0-10.0) 04/18/18 05:00 Eosinophils % 0.0 % (0.0-5.0) 04/18/18 05:00 Basophils % 0.2 % (0.0-2.0) 04/18/18 05:00 PT 15.0 SECONDS (9.5-11.5) H 04/16/18 16:10 INR 1.41 (0.5-1.4) H 04/16/18 16:10 PTT (Actin FS) 23.1 SECONDS (26.0-38.0) L 04/16/18 16:10 Specimen Source Arterial 04/16/18 16:07 Sample Site Right Radial 04/16/18 16:07 pH 7.62 (7.35-7.45) H* 04/16/18 16:07 pCO2 35.0 mmHg (35.0-45.0) 04/16/18 16:07 pO2 45.0 mmHg (80.0-100.0) L* 04/16/18 16:07 HCO3 35.6 mEq/L (20.0-26.0) H 04/16/18 16:07 Base Excess 13.9 mEq/L (-3.0-3.0) H 04/16/18 16:07 O2 Saturation 89.0 % (92.0-100.0) L 04/16/18 16:07 Manjeet Test Positive 04/16/18 16:07 Vent Rate NA 04/16/18 16:07 Inspired O2 21 04/16/18 16:07 Tidal Volume NA 04/16/18 16:07 PEEP NA 04/16/18 16:07 Pressure (ins/psv/peep) NA 04/16/18 16:07 Critical Value SH 04/16/18 16:07 Sodium 146 mEq/L (136-145) H 04/18/18 05:00 Potassium 3.7 mEq/L (3.5-5.1) 04/18/18 05:00 Chloride 108 mEq/L (98-107) H 04/18/18 05:00 Carbon Dioxide 32.7 mEq/L (21.0-31.0) H 04/18/18 05:00 Anion Gap 9.0 (7.0-16.0) 04/18/18 05:00 BUN 24 mg/dL (7-25) 04/18/18 05:00 Creatinine 0.4 mg/dL (0.6-1.2) L 04/18/18 05:00 Est GFR ( Amer) > 60.0 ml/min (>90) 04/18/18 05:00 Est GFR (Non-Af Amer) > 60.0 ml/min 04/18/18 05:00 BUN/Creatinine Ratio 60.0 04/18/18 05:00 Glucose 179 mg/dL (70-105) H 04/18/18 05:00 Whole Bld Lactic Acid 1.93 mmol/L (0.60-1.99) 04/17/18 09:35 Calcium 8.1 mg/dL (8.6-10.3) L 04/18/18 05:00 Magnesium 2.1 mg/dL (1.9-2.7) 04/16/18 23:40 Total Bilirubin 0.4 mg/dL (0.3-1.0) 04/18/18 05:00 Direct Bilirubin 0.16 mg/dL (0.0-0.2) 04/18/18 05:00 AST 23 U/L (13-39) 04/18/18 05:00 ALT 30 U/L (7-52) 04/18/18 05:00 Alkaline Phosphatase 39 U/L (34-104) 04/18/18 05:00 Ammonia 33 umol/L (16-53) 04/18/18 05:00 Troponin I 0.05 ng/mL (0.01-0.05) 04/16/18 16:10 B-Natriuretic Peptide 232.0 pg/mL (5.0-100.0) H 04/16/18 23:40 Total Protein 4.6 gm/dL (6.0-8.3) L 04/18/18 05:00 Albumin 2.5 gm/dL (3.7-5.3) L 04/18/18 05:00 Globulin 2.1 gm/dL 04/18/18 05:00 Albumin/Globulin Ratio 1.2 (1.0-1.8) 04/18/18 05:00 TSH 8.06 uIU/ml (0.34-5.60) H 04/16/18 16:10 Urine Source [place] 04/17/18 00:15 Urine Color YELLOW 04/17/18 00:15 Urine Clarity HAZY (CLEAR) 04/17/18 00:15 Urine pH 6.0 (4.6 - 8.0) 04/17/18 00:15 Ur Specific [place] 1.025 (1.005-1.030) 04/17/18 00:15 Urine Protein 100 mg/dL (NEGATIVE) H 04/17/18 00:15 Urine Glucose (UA) NEGATIVE mg/dL (NEGATIVE) 04/17/18 00:15 Urine Ketones TRACE mg/dL (NEGATIVE) 04/17/18 00:15 Urine Blood MODERATE (NEGATIVE) H 04/17/18 00:15 Urine Nitrate NEGATIVE (NEGATIVE) 04/17/18 00:15 Urine Bilirubin SMALL (NEGATIVE) H 04/17/18 00:15 Urine Urobilinogen 1.0 E.U./dL (0.2 - 1.0) 04/17/18 00:15 Ur Leukocyte Esterase NEGATIVE (NEGATIVE) 04/17/18 00:15 Urine RBC 5-10 /hpf (0-5) H 04/17/18 00:15 Urine WBC 0-2 /hpf (0-5) 04/17/18 00:15 Ur Epithelial Cells FEW /lpf (FEW) 04/17/18 00:15 Urine Bacteria NONE SEEN /hpf (NONE SEEN) 04/17/18 00:15 Valproic Acid 86.6 ug/mL (50.0-100.0) 04/16/18 16:10 - Physical Exam Vitals and I&O: Vital Signs Temp 97.5 F 04/18/18 04:00 Pulse 70 04/18/18 04:00 Resp 19 04/18/18 05:02 BP 99/81 04/18/18 04:00 Pulse Ox 97 04/18/18 05:02 Intake & Output 04/17/18 04/17/18 04/18/18 06:59 18:59 06:59 Intake Total 400 1050 Output Total 60 80 152 Balance 340 -80 898 Weight (lbs) 61.235 kg 61.235 kg 56.971 kg Intake: Intake, IV Amount 1000 D5-0.45NS w/20 mEq KCL 1, 1000 000 ml @ 50 mls/hr IV . Q20H [facility] Rx#:[id number] Oral 400 Other 50 Output: Urine 60 80 Stool 0 Hemodialysis 152 Other: # Voids 3 3 Weight Source Bedscale Bedscale Bedscale Active Medications: Current Medications Albuterol/Ipratropium (Duoneb Neb) 3 ml HHN Q3H [facility] Stop: 06/16/18 00:00 Last Admin: 04/18/18 02:47 Dose: 3 ml Amlodipine Besylate (Norvasc) 10 mg PO DAILY [facility] Stop: 06/16/18 08:59 Last Admin: 04/17/18 09:00 Dose: Not Given Bisacodyl (Dulcolax 10 Mg Supp) 10 mg RC DAILY PRN PRN Reason: Constipation Stop: 06/15/18 21:42 Budesonide (Pulmicort) 0.5 mg HHN BIDRT [facility] Stop: 06/16/18 00:00 Last Admin: 04/17/18 18:24 Dose: 0.5 mg Cyanocobalamin (Vitamin B12) 100 mcg PO DAILY [facility] Stop: 06/16/18 08:59 Last Admin: 04/17/18 10:32 Dose: Not Given Divalproex Sodium (Depakote Er) 500 mg PO BID [facility]; Protocol Stop: 06/16/18 08:59 Last Admin: 04/17/18 18:44 Dose: Not Given Docusate Sodium (Colace) 100 mg PO DAILY PRN PRN Reason: STOOL SOFTENER Stop: 06/15/18 22:29 Ceftriaxone Sodium 1 gm/ (Dextrose) 50 mls @ 100 mls/hr IV Q24H [facility] Stop: 06/15/18 21:29 Last Admin: 04/17/18 20:47 Dose: 100 mls/hr Potassium Chloride/Dextrose/Sod Cl (D5-0.45ns W/20 Meq Kcl) 1,000 mls @ 50 mls/ hr IV .Q20H [facility] Stop: 06/15/18 21:44 Last Admin: 04/17/18 23:23 Dose: 50 mls/hr Azithromycin 500 mg/ Sodium (Chloride) 250 mls @ 250 mls/hr IV Q24HR [facility] Stop: 06/16/18 07:29 Last Admin: 04/17/18 11:18 Dose: 250 mls/hr Levetiracetam (Keppra) 500 mg PO BID [facility] Stop: 06/16/18 08:59 Last Admin: 04/17/18 18:44 Dose: Not Given Levothyroxine Sodium (Synthroid) 0.05 mg PO QDAC [facility] Stop: 06/17/18 07:29 Methylprednisolone Sodium Succinate (Solu-Medrol) 40 mg IV Q8HR [facility] Stop: 06/16/18 00:00 Last Admin: 04/18/18 04:28 Dose: 40 mg Metoprolol Tartrate (Lopressor) 25 mg PO BID [facility] Stop: 06/16/18 08:59 Last Admin: 04/17/18 18:44 Dose: Not Given Quetiapine Fumarate (Seroquel) 12.5 mg PO BID [facility]; Protocol Stop: 06/16/18 08:59 Last Admin: 07/22/18 18:44 Dose: Not Given Simvastatin (Zocor) 10 mg PO HS [facility]; Protocol Stop: 06/16/18 20:59 Last Admin: 04/17/18 20:39 Dose: Not Given General: Alert, No acute distress HEENT: Atraumatic, PERRLA, EOMI Neck: Supple Cardiovascular: Regular rate, Normal S1, Normal S2 Lungs: Clear to auscultation Abdomen: Bowel sounds, Soft Extremities: no Clubbing, no Cyanosis, no Edema Neurological: Normal gait, Normal speech Assessment/Plan - Assessment Assessment: LLL pneumonia poor oral intake abdominal mass Sepsis UTI leukocytosis Willie. pleural effusion CVA w/ hemiplegia Seizure disorder HTN Hyperlipidemia CAD PUD GERD OA - Plan Plan: pulmonary consult w/ Dr. Gato Jiménez IV Rocephin and IV Azithromycin repeat CBC, CMP breathing treatments K+ supplements ID consult CT ab/pelvis
--- NOTE | 2018-04-18 07:58 | Diagnostic Imaging Report ---
CT abdomen and pelvis with intravenous contrast Indication: Mass Comparison: None, Technique: Axial images were obtained from the lung bases to the bilateral proximal femurs with IV contrast. Coronal reconstructions were made. total DLP: 773, CTDI14.1 FINDINGS: Bibasal consolidative changes are noted with trace bilateral effusions. Hypodense changes of the lungs are also noted. Mild cardiomegaly is noted. There is a large lesion arising from the left lobe of the liver measuring 10.3 x 7.5 cm with centripetal enhancement. Additional smaller lesions of the right lobe are noted difficult to characterize. Intraluminal densities are seen within the gallbladder which may represent stones or other mass lesions. No focal splenic lesions. Mild pancreatic gland atrophy is noted with no discrete focal lesions. There is a 3 cm right adrenal mass with indeterminate Hounsfield units. A 2 cm left renal cyst is noted. Mild renal cortical scarring is noted. No hydronephrosis. Hurtado catheter seen within collapsed urinary bladder. Postsurgical changes of the pelvis are noted with evidence of prior hysterectomy. No evidence of bowel obstruction. Postsurgical changes of the right lower quadrant are noted. Appendix is not visualized. No evidence of mesenteric or retroperitoneal lymphadenopathy. Moderate atherosclerosis is noted with tortuous aorta. Osteopenia is noted. Diffuse degenerative change of the spine are noted multilevel spinal compression fractures which may be due to osteopenia. Schmorl's nodes are also seen at multiple levels. Endplate sclerotic changes are also seen at multiple levels. There is mild anasarca. IMPRESSION: Large 10.3 x 7.5 cm mass arising from the left lobe of the liver. There is peripheral centripetal enhancement. This may representing liver hemangioma, however, further assessment dedicated CT liver mass protocol is recommended. Additional smaller lesions of the right lobe of the liver are also noted, Difficult to characterize. Again CT with liver mass protocol may further clarify 3 cm right adrenal mass with indeterminate Hounsfield units. Again CT without and with IV contrast is recommended for further characterization. Intraluminal Gallbladder densities, indeterminate may represent stones or other mass lesions. Recommend follow-up with ultrasound. Left renal cyst. Diffuse postsurgical changes of the pelvis with evidence of prior hysterectomy. Hurtado catheter within collapsed urinary bladder. Bibasal passive atelectatic and consolidative changes and trace effusions. There is probable pneumonia in the lung bases. Atherosclerotic vascular disease Osteopenia and multilevel spinal compression fractures which are age indeterminate and some of which may be subacute as nondisplaced fracture lines are seen. This may be related to patient's osteopenia. Endplate sclerotic changes are also probably related to degenerative etiology and possible patient's compression fractures. Mild anasarca.
[2018-04-18] MEDS: Budesonide 0.5 Mg/2 mL Ud HHN SCH ×2 (08:09→18:48)
[2018-04-18] MEDS: Levothyroxine 0.05 Mg Tab PO SCH (09:11)
[2018-04-18] MEDS: Multivitamin w/ Minerals Tab PO SCH (09:12)
[2018-04-18] MEDS: Azithromycin 500 MG in Sodium Chloride 0.9% 250 ML IV SCH (09:15)
[2018-04-18 09:29] LABS: pH 7.48 (7.35-7.45)
[2018-04-18 09:32] LABS: ALLEN TEST Positive
--- NOTE | 2018-04-18 12:05 | Diagnostic Imaging Report ---
Portable chest x-ray HISTORY: Shortness of breath Compared to prior exam of April 17, 2018, there remains density within the left lower hemithorax that corresponds to abnormal pulmonary parenchymal changes and volume loss noted on the earlier CT scan of April 16, 2018. No free pleural fluid is seen on the CT scan. The heart is enlarged. IMPRESSION: 1. No change in the cardiopulmonary status and 04/17/2018 as described above.
[2018-04-18] MEDS ORDERED: Levetiracetam 500 mg/5mL 5mL Vial IV ONE (21:10)
[2018-04-18] MEDS: Morphine Sulfate 2 mg/mL 1mL Syr IVP PRN (21:22)
[2018-04-18] MEDS: D5-0.45NS w/20 mEq KCL 1,000 ML IV SCH (22:33)
--- NOTE | 2018-04-18 23:29 | Progress Notes ---
DATE: 04/18/2018 PULMONARY/CRITICAL CARE PROGRESS NOTE PROBLEM LIST: 1. Altered level of consciousness. 2. Tracheobronchitis. 3. History of CVA. 4. Questionable pneumonitis. SYMPTOMS: The patient barely opens eyes. No specific symptomatology could be obtained from the patient. She is currently on a full-face mask with 55% oxygen on BiPAP. OBJECTIVE: VITAL SIGNS: Blood pressure is 120/80, saturation is 95%. NECK: Veins not visualized. Good bilateral carotid upstroke. CHEST: Shows diminished air entry with occasional rhonchi. HEART: Regular. ABDOMEN: Soft, nontender. LABORATORY DATA: White count is 14,000. The patient's pO2 is 63 on 55%. Electrolytes show sodium of 146, chloride is 108. Albumin is 2.5. ASSESSMENT: The patient has clinically not much significantly changed or improved. PLANS AND SUGGESTIONS: Continue current treatment. Slowly decrease FiO2. Consideration for NG or G-tube is advised pending family opinion. JOB# [id number]
--- NOTE | 2018-04-18 23:43 | Infectious Disease Prog Note ---
Infectious Disease Subjective - Review of Systems Service Date: 04/18/18 Subjective: No fever. Infectious Disease Objective - Results Result Diagrams: 04/19/18 04:40 04/19/18 04:40 Recent Labs: Laboratory Last Values WBC 11.1 Th/cmm (4.8-10.8) H D 04/18/18 05:00 RBC 4.22 Mil/cmm (3.80-5.10) 04/18/18 05:00 Hgb 14.1 gm/dL (12-16) 04/18/18 05:00 Hct 42.4 % (41.0-60) D 04/18/18 05:00 MCV 100.5 fl (81-100) H 04/18/18 05:00 MCH 33.4 pg (27.0-31.0) H 04/18/18 05:00 MCHC Differential 33.2 pg (28.0-36.0) 04/18/18 05:00 RDW 15.9 % (11.5-20.0) 04/18/18 05:00 Plt Count 130 Th/cmm (150-400) L 04/18/18 05:00 MPV 8.9 fl 04/18/18 05:00 Neutrophils % 81.4 % (40.0-80.0) H 04/18/18 05:00 Lymphocytes % 15.2 % (20.0-50.0) L 04/18/18 05:00 Monocytes % 3.2 % (2.0-10.0) 04/18/18 05:00 Eosinophils % 0.0 % (0.0-5.0) 04/18/18 05:00 Basophils % 0.2 % (0.0-2.0) 04/18/18 05:00 PT 15.0 SECONDS (9.5-11.5) H 04/16/18 16:10 INR 1.41 (0.5-1.4) H 04/16/18 16:10 PTT (Actin FS) 23.1 SECONDS (26.0-38.0) L 04/16/18 16:10 Specimen Source Arterial 04/18/18 09:13 Sample Site Right Radial 04/18/18 09:13 pH 7.48 (7.35-7.45) H 04/18/18 09:13 pCO2 45.0 mmHg (35.0-45.0) 04/18/18 09:13 pO2 63.0 mmHg (80.0-100.0) L 04/18/18 09:13 HCO3 31.8 mEq/L (20.0-26.0) H 04/18/18 09:13 Base Excess 8.9 mEq/L (-3.0-3.0) H 04/18/18 09:13 O2 Saturation 93.0 % (92.0-100.0) 04/18/18 09:13 Manjeet Test Positive 04/18/18 09:13 Vent Rate 14 04/18/18 09:13 Inspired O2 55 04/18/18 09:13 Tidal Volume 300 04/18/18 09:13 PEEP 4 04/18/18 09:13 Pressure (ins/psv/peep) NA 04/18/18 09:13 Critical Value LZHANG 04/18/18 09:13 Sodium 146 mEq/L (136-145) H 04/18/18 05:00 Potassium 3.7 mEq/L (3.5-5.1) 04/18/18 05:00 Chloride 108 mEq/L (98-107) H 04/18/18 05:00 Carbon Dioxide 32.7 mEq/L (21.0-31.0) H 04/18/18 05:00 Anion Gap 9.0 (7.0-16.0) 04/18/18 05:00 BUN 24 mg/dL (7-25) 04/18/18 05:00 Creatinine 0.4 mg/dL (0.6-1.2) L 04/18/18 05:00 Est GFR ( Amer) > 60.0 ml/min (>90) 04/18/18 05:00 Est GFR (Non-Af Amer) > 60.0 ml/min 04/18/18 05:00 BUN/Creatinine Ratio 60.0 04/18/18 05:00 Glucose 179 mg/dL (70-105) H 04/18/18 05:00 Whole Bld Lactic Acid 1.93 mmol/L (0.60-1.99) 04/17/18 09:35 Calcium 8.1 mg/dL (8.6-10.3) L 04/18/18 05:00 Magnesium 2.1 mg/dL (1.9-2.7) 04/16/18 23:40 Total Bilirubin 0.4 mg/dL (0.3-1.0) 04/18/18 05:00 Direct Bilirubin 0.16 mg/dL (0.0-0.2) 04/18/18 05:00 AST 23 U/L (13-39) 04/18/18 05:00 ALT 30 U/L (7-52) 04/18/18 05:00 Alkaline Phosphatase 39 U/L (34-104) 04/18/18 05:00 Ammonia 33 umol/L (16-53) 04/18/18 05:00 Troponin I 0.05 ng/mL (0.01-0.05) 04/16/18 16:10 B-Natriuretic Peptide 232.0 pg/mL (5.0-100.0) H 04/16/18 23:40 Total Protein 4.6 gm/dL (6.0-8.3) L 04/18/18 05:00 Albumin 2.5 gm/dL (3.7-5.3) L 04/18/18 05:00 Globulin 2.1 gm/dL 04/18/18 05:00 Albumin/Globulin Ratio 1.2 (1.0-1.8) 04/18/18 05:00 TSH 8.06 uIU/ml (0.34-5.60) H 04/16/18 16:10 Urine Source RAMOS PORT 04/17/18 00:15 Urine Color YELLOW 04/17/18 00:15 Urine Clarity HAZY (CLEAR) 04/17/18 00:15 Urine pH 6.0 (4.6 - 8.0) 04/17/18 00:15 Ur Specific [place] 1.025 (1.005-1.030) 04/17/18 00:15 Urine Protein 100 mg/dL (NEGATIVE) H 04/17/18 00:15 Urine Glucose (UA) NEGATIVE mg/dL (NEGATIVE) 04/17/18 00:15 Urine Ketones TRACE mg/dL (NEGATIVE) 04/17/18 00:15 Urine Blood MODERATE (NEGATIVE) H 04/17/18 00:15 Urine Nitrate NEGATIVE (NEGATIVE) 04/17/18 00:15 Urine Bilirubin SMALL (NEGATIVE) H 04/17/18 00:15 Urine Urobilinogen 1.0 E.U./dL (0.2 - 1.0) 04/17/18 00:15 Ur Leukocyte Esterase NEGATIVE (NEGATIVE) 04/17/18 00:15 Urine RBC 5-10 /hpf (0-5) H 04/17/18 00:15 Urine WBC 0-2 /hpf (0-5) 04/17/18 00:15 Ur Epithelial Cells FEW /lpf (FEW) 04/17/18 00:15 Urine Bacteria NONE SEEN /hpf (NONE SEEN) 04/17/18 00:15 Valproic Acid 86.6 ug/mL (50.0-100.0) 04/16/18 16:10 - Physical Exam Vitals and I&O: Vital Signs Temp 96.1 F 04/18/18 16:17 Pulse 70 04/18/18 17:29 Resp 16 04/18/18 22:12 BP 126/83 04/18/18 17:29 Pulse Ox 98 04/18/18 22:12 Intake & Output 04/18/18 04/18/18 04/19/18 06:59 18:59 06:59 Intake Total 9859 016 3316 Output Total 150 150 Balance 628 731 8293 Weight (lbs) 56.971 kg 56.971 kg 56.971 kg Intake: Intake, IV Amount 4799 277 7080 Azithromycin 500 mg In 250 Sodium Chloride 0.9% 250 ml @ 250 mls/hr IV Q24HR [facility] Rx#:[id number] D5-0.45NS w/20 mEq KCL 1, 1000 1000 000 ml @ 50 mls/hr IV . Q20H [facility] Rx#:[id number] cefTRIAXone 1 gm In 50 Dextrose 5% 50 ml @ 100 mls/hr IV Q24H [facility] Rx#: [id number] Other 50 Output: Urine 150 150 Other: # Bowel Movements 0 Weight Source Bedscale Bedscale Bedscale Active Medications: Current Medications Albuterol/Ipratropium (Duoneb Neb) 3 ml HHN Q3H [facility] Stop: 06/16/18 00:00 Last Admin: 04/18/18 22:12 Dose: 3 ml Amlodipine Besylate (Norvasc) 10 mg PO DAILY [facility] Stop: 06/16/18 08:59 Last Admin: 04/18/18 10:42 Dose: Not Given Bisacodyl (Dulcolax 10 Mg Supp) 10 mg RC DAILY PRN PRN Reason: Constipation Stop: 06/15/18 21:42 Budesonide (Pulmicort) 0.5 mg HHN BIDRT [facility] Stop: 06/16/18 00:00 Last Admin: 04/18/18 18:48 Dose: 0.5 mg Cyanocobalamin (Vitamin B12) 100 mcg PO DAILY [facility] Stop: 06/16/18 08:59 Last Admin: 04/18/18 09:11 Dose: Not Given Divalproex Sodium (Depakote Er) 500 mg PO BID [facility]; Protocol Stop: 06/16/18 08:59 Last Admin: 04/18/18 17:29 Dose: Not Given Docusate Sodium (Colace) 100 mg PO DAILY PRN PRN Reason: STOOL SOFTENER Stop: 06/15/18 22:29 Enalaprilat (Vasotec) 1.25 mg IVP Q6HR PRN PRN Reason: INCREASED HEART RATE Stop: 06/17/18 17:59 Ceftriaxone Sodium 1 gm/ (Dextrose) 50 mls @ 100 mls/hr IV Q24H [facility] Stop: 06/15/18 21:29 Last Admin: 04/18/18 20:56 Dose: 100 mls/hr Potassium Chloride/Dextrose/Sod Cl (D5-0.45ns W/20 Meq Kcl) 1,000 mls @ 50 mls/ hr IV .Q20H [facility] Stop: 06/15/18 21:44 Last Admin: 04/18/18 22:33 Dose: 50 mls/hr Azithromycin 500 mg/ Sodium (Chloride) 250 mls @ 250 mls/hr IV Q24HR [facility] Stop: 06/16/18 07:29 Last Infusion: 04/18/18 10:54 Dose: Infused Levetiracetam 500 mg/ Sodium (Chloride) 105 mls @ 400 mls/hr IV Q12H [facility] Stop: 06/17/18 21:59 Last Admin: 04/18/18 22:32 Dose: 400 mls/hr Levothyroxine Sodium (Synthroid) 0.05 mg PO QDAC [facility] Stop: 06/17/18 07:29 Last Admin: 04/18/18 09:11 Dose: Not Given Methylprednisolone Sodium Succinate (Solu-Medrol) 40 mg IV Q8HR [facility] Stop: 06/16/18 00:00 Last Admin: 04/18/18 20:56 Dose: 40 mg Metoprolol Tartrate (Lopressor) 25 mg PO BID [facility] Stop: 06/16/18 08:59 Last Admin: 04/18/18 17:29 Dose: Not Given Morphine Sulfate (Morphine) 2 mg IVP Q6H PRN PRN Reason: MODERATE PAIN Stop: 06/17/18 13:02 Last Admin: 04/18/18 21:22 Dose: 2 mg Quetiapine Fumarate (Seroquel) 12.5 mg PO BID [facility]; Protocol Stop: 06/16/18 08:59 Last Admin: 04/18/18 17:30 Dose: Not Given Simvastatin (Zocor) 10 mg PO HS [facility]; Protocol Stop: 06/16/18 20:59 Last Admin: 04/18/18 21:27 Dose: Not Given General: no acute distress, well developed, well nourished HEENT: atraumatic, normocephalic, PERRLA, EOMI Neck: supple, no thyromegaly Cardiovascular: S1S2, regular Lungs: clear to auscultation bilaterally, clear to percussion Abdomen: soft, no tender, no distended Extremities: no cyanosis, no clubbing, no edema Neurological: awake, alert, oriented Skin: intact Infectious Disease Assmt/Plan - Assessment Assessment: 1. Lactic acidosis. 2. Right lower lobe pneumonia. 3. Dementia. 4. Cerebrovascular accident. 5. Hypertension. - Plan Plan: Continue Rocephin and Zithromax. Nutritional Asmnt/Malnutr-PDOC - Dietary Evaluation Malnutrition Findings (Please click <Entered> for more info): Nutritional Asmnt/Malnutrition Start: 04/18/18 17: 58 Text: Status: Complete Freq: Protocol: Document 04/18/18 17:58 LCHENG (Rec: 04/18/18 18:07 [email or web address]) Nutritional Asmnt/Malnutrition Patient General Information Nutritional Screening High Risk Consult Diagnosis right lower lob NPA, bilateral pleural effus Pertinent Medical Hx/Surgical Hx CAD, HTN, hyperlipidemia, CVA, seizure, aphasia, GERD, anxiety, OA, healues, weakness , muscle atrophy Subjective Information Consult received for pt not tolerating diet. Per RN, pt failed swallow eval. Wait for family desicion about PEG. Current Diet Order/ Nutrition Support NPO Pertinent Medications vit B12, colace, synthroid, D5 -0.45ns w 20meq kcal, seroquel , Pertinent Labs 04/18 Na 146, Cl 108, Cr 0.4, glucose 179, Ca 8.1 Nutritional Hx/Data Height 1.57 m Height (Calculated Centimeters) 157.5 Current Weight (lbs) 56.699 kg Weight (Calculated Kilograms) 56.7 Weight (Calculated Grams) 40632.0 [place] Body Weight 110 Body Mass Index (BMI) 22.8 Weight Status Approriate GI Symptoms GI Symptoms None Last BM none Difficult in: Chewing Swallowing Skin Integrity/Comment: rash multiple sites Current %PO Negligible < 25% Estimated Nutritional Goals BEE in Kcals: Using Current wt Calories/Kcals/Kg 25-30 Kcals Calculated 8942-5456 Protein: Using Current wt Protein g/k Protein Calculated 57 Fluid: ml 1425-1710ml (1ml/kcal) Nutritional Problem 1. Problem Problem chewing/swallowing difficulty Etiology ?lethargy, ?cognition Signs/Symptoms: pt failed swallow eval Intervention/Recommendation Comments 1. Monitor NPO status. Consider alternative nutrition route. Wait for family decision. 2. Monitor PO intake, wt, labs and skin integrity 3. F/U as high risk in 2-3 days, 04/20-04/21 Expected Outcomes/Goals Expected Outcomes/Goals 1. PO to meet at least 75% of nutritional needs. 2. Wt stability, skin to remain intact, labs to approach WNL.
[2018-04-19] MEDS: Albuterol/Ipratropium Neb 3 ML AERS HHN SCH ×8 (01:31→21:02)
[2018-04-19 05:10] LABS: HEMATOCRIT 44.6 % (41.0-60); HEMOGLOBIN 14.5 gm/dL (12-16); MEAN CELL VOLUME 100.1 fl (81-100); MEAN CORPUSCULAR HEMOGLOBIN 32.6 pg (27.0-31.0); MEAN CORPUSCULAR HGB CONC 32.6 pg (28.0-36.0); MEAN PLATELET VOLUME 9.6 fl; PLATELET COUNT 140 Th/cmm (150-400); RED BLOOD COUNT 4.45 Mil/cmm (3.80-5.10); RED CELL DISTRIBUTION WIDTH 16.3 % (11.5-20.0); WHITE BLOOD COUNT 10.2 Th/cmm (4.8-10.8)
[2018-04-19 05:28] LABS: ALB/GLOB RATIO 1.1 (1.0-1.8); ALBUMIN 2.5 gm/dL (3.7-5.3); ALKALINE PHOSPHATASE 47 U/L (34-104); ANION GAP 13.1 (7.0-16.0); BILIRUBIN,TOTAL 0.5 mg/dL (0.3-1.0); BUN - UREA NITROGEN 25 mg/dL (7-25); CALCIUM SERUM 8.4 mg/dL (8.6-10.3); CARBON DIOXIDE 26.6 mEq/L (21.0-31.0); CHLORIDE 109 mEq/L (98-107); CREATININE - SERUM 0.3 mg/dL (0.6-1.2); GFR AFRICAN-AMERICAN > 60.0 ml/min (>90); GFR NON AFRICAN-AMERICAN > 60.0 ml/min; GLUCOSE 193 mg/dL (70-105); POTASSIUM SERUM 3.7 mEq/L (3.5-5.1); SGOT 21 U/L (13-39); SGPT/ALT 30 U/L (7-52); SODIUM SERUM 145 mEq/L (136-145); TOTAL PROTEIN,SERUM 4.7 gm/dL (6.0-8.3)
[2018-04-19] MEDS: methylPREDNISolone SS 40 mg Vial IV SCH ×3 (05:58→22:08)
[2018-04-19 06:13] LABS: BAND NEUTROPHILE 5 % (0-10); LYMPHOCYTE 5 % (20-50); MONOCYTE 2 % (2-10); NEUTROPHILS 88 % (40-80)
[2018-04-19] MEDS: Budesonide 0.5 Mg/2 mL Ud HHN SCH ×2 (07:06→18:48)
--- NOTE | 2018-04-19 07:07 | General Progress Note ---
Subjective - Review of Systems Service Date: 04/19/18 Subjective: Patient was seen and examined. No acute distress. Patient resting comfortably in bed. failed swallow evaluation. Poor PO intake. no fever no chills. Objective - Results Result Diagrams: 04/19/18 04:40 04/19/18 04:40 Recent Labs: Laboratory Last Values WBC 10.2 Th/cmm (4.8-10.8) 04/19/18 04:40 RBC 4.45 Mil/cmm (3.80-5.10) 04/19/18 04:40 Hgb 14.5 gm/dL (12-16) 04/19/18 04:40 Hct 44.6 % (41.0-60) 04/19/18 04:40 MCV 100.1 fl (81-100) H 04/19/18 04:40 MCH 32.6 pg (27.0-31.0) H 04/19/18 04:40 MCHC Differential 32.6 pg (28.0-36.0) 04/19/18 04:40 RDW 16.3 % (11.5-20.0) 04/19/18 04:40 Plt Count 140 Th/cmm (150-400) L 04/19/18 04:40 MPV 9.6 fl 04/19/18 04:40 Add Manual Diff YES 04/19/18 04:40 Neutrophils % 81.4 % (40.0-80.0) H 04/18/18 05:00 Band Neutrophils % 5 % (0-10) 04/19/18 04:40 Lymphocytes % 15.2 % (20.0-50.0) L 04/18/18 05:00 Monocytes % 3.2 % (2.0-10.0) 04/18/18 05:00 Eosinophils % 0.0 % (0.0-5.0) 04/18/18 05:00 Basophils % 0.2 % (0.0-2.0) 04/18/18 05:00 Neutrophils (Manual) 88 % (40-80) H 04/19/18 04:40 Lymphocytes 5 % (20-50) L 04/19/18 04:40 Monocytes 2 % (2-10) 04/19/18 04:40 PT 15.0 SECONDS (9.5-11.5) H 04/16/18 16:10 INR 1.41 (0.5-1.4) H 04/16/18 16:10 PTT (Actin FS) 23.1 SECONDS (26.0-38.0) L 04/16/18 16:10 Specimen Source Arterial 04/18/18 09:13 Sample Site Right Radial 04/18/18 09:13 pH 7.48 (7.35-7.45) H 04/18/18 09:13 pCO2 45.0 mmHg (35.0-45.0) 04/18/18 09:13 pO2 63.0 mmHg (80.0-100.0) L 04/18/18 09:13 HCO3 31.8 mEq/L (20.0-26.0) H 04/18/18 09:13 Base Excess 8.9 mEq/L (-3.0-3.0) H 04/18/18 09:13 O2 Saturation 93.0 % (92.0-100.0) 04/18/18 09:13 Manjeet Test Positive 04/18/18 09:13 Vent Rate 14 04/18/18 09:13 Inspired O2 55 04/18/18 09:13 Tidal Volume 300 04/18/18 09:13 PEEP 4 04/18/18 09:13 Pressure (ins/psv/peep) NA 04/18/18 09:13 Critical Value LZHANG 04/18/18 09:13 Sodium 145 mEq/L (136-145) 04/19/18 04:40 Potassium 3.7 mEq/L (3.5-5.1) 04/19/18 04:40 Chloride 109 mEq/L (98-107) H 04/19/18 04:40 Carbon Dioxide 26.6 mEq/L (21.0-31.0) 04/19/18 04:40 Anion Gap 13.1 (7.0-16.0) 04/19/18 04:40 BUN 25 mg/dL (7-25) 04/19/18 04:40 Creatinine 0.3 mg/dL (0.6-1.2) L 04/19/18 04:40 Est GFR ( Amer) > 60.0 ml/min (>90) 04/19/18 04:40 Est GFR (Non-Af Amer) > 60.0 ml/min 04/19/18 04:40 BUN/Creatinine Ratio 83.3 04/19/18 04:40 Glucose 193 mg/dL (70-105) H 04/19/18 04:40 Whole Bld Lactic Acid 1.93 mmol/L (0.60-1.99) 04/17/18 09:35 Calcium 8.4 mg/dL (8.6-10.3) L 04/19/18 04:40 Magnesium 2.1 mg/dL (1.9-2.7) 04/16/18 23:40 Total Bilirubin 0.5 mg/dL (0.3-1.0) 04/19/18 04:40 Direct Bilirubin 0.16 mg/dL (0.0-0.2) 04/18/18 05:00 AST 21 U/L (13-39) 04/19/18 04:40 ALT 30 U/L (7-52) 04/19/18 04:40 Alkaline Phosphatase 47 U/L (34-104) 04/19/18 04:40 Ammonia 33 umol/L (16-53) 04/18/18 05:00 Troponin I 0.05 ng/mL (0.01-0.05) 04/16/18 16:10 B-Natriuretic Peptide 232.0 pg/mL (5.0-100.0) H 04/16/18 23:40 Total Protein 4.7 gm/dL (6.0-8.3) L 04/19/18 04:40 Albumin 2.5 gm/dL (3.7-5.3) L 04/19/18 04:40 Globulin 2.2 gm/dL 04/19/18 04:40 Albumin/Globulin Ratio 1.1 (1.0-1.8) 04/19/18 04:40 TSH 8.06 uIU/ml (0.34-5.60) H 04/16/18 16:10 Urine Source [place] 04/17/18 00:15 Urine Color YELLOW 04/17/18 00:15 Urine Clarity HAZY (CLEAR) 04/17/18 00:15 Urine pH 6.0 (4.6 - 8.0) 04/17/18 00:15 Ur Specific [place] 1.025 (1.005-1.030) 04/17/18 00:15 Urine Protein 100 mg/dL (NEGATIVE) H 04/17/18 00:15 Urine Glucose (UA) NEGATIVE mg/dL (NEGATIVE) 04/17/18 00:15 Urine Ketones TRACE mg/dL (NEGATIVE) 04/17/18 00:15 Urine Blood MODERATE (NEGATIVE) H 04/17/18 00:15 Urine Nitrate NEGATIVE (NEGATIVE) 04/17/18 00:15 Urine Bilirubin SMALL (NEGATIVE) H 04/17/18 00:15 Urine Urobilinogen 1.0 E.U./dL (0.2 - 1.0) 04/17/18 00:15 Ur Leukocyte Esterase NEGATIVE (NEGATIVE) 04/17/18 00:15 Urine RBC 5-10 /hpf (0-5) H 04/17/18 00:15 Urine WBC 0-2 /hpf (0-5) 04/17/18 00:15 Ur Epithelial Cells FEW /lpf (FEW) 04/17/18 00:15 Urine Bacteria NONE SEEN /hpf (NONE SEEN) 04/17/18 00:15 Valproic Acid 86.6 ug/mL (50.0-100.0) 04/16/18 16:10 - Physical Exam Vitals and I&O: Vital Signs Temp 98.2 F 04/19/18 04:00 Pulse 102 04/19/18 04:00 Resp 16 04/19/18 05:49 BP 138/87 04/19/18 04:00 Pulse Ox 97 04/19/18 05:49 Intake & Output 04/18/18 04/19/18 04/19/18 18:59 06:59 18:59 Intake Total 250 1155 Output Total 150 10 Balance 100 1145 Weight (lbs) 56.971 kg 70.579 kg Intake: Intake, IV Amount 250 1155 Azithromycin 500 mg In 250 Sodium Chloride 0.9% 250 ml @ 250 mls/hr IV Q24HR [facility] Rx#:[id number] D5-0.45NS w/20 mEq KCL 1, 1000 000 ml @ 50 mls/hr IV . Q20H [facility] Rx#:[id number] Levetiracetam 500 mg In 105 Sodium Chloride 0.9% 100 ml @ 400 mls/hr IV Q12H [facility] Rx#:[id number] cefTRIAXone 1 gm In 50 Dextrose 5% 50 ml @ 100 mls/hr IV Q24H [facility] Rx#: [id number] Output: Urine 150 10 Other: # Bowel Movements 0 0 Weight Source Bedscale Bedscale Active Medications: Current Medications Albuterol/Ipratropium (Duoneb Neb) 3 ml HHN Q3H [facility] Stop: 06/16/18 00:00 Last Admin: 04/19/18 06:58 Dose: 3 ml Amlodipine Besylate (Norvasc) 10 mg PO DAILY [facility] Stop: 06/16/18 08:59 Last Admin: 04/18/18 10:42 Dose: Not Given Bisacodyl (Dulcolax 10 Mg Supp) 10 mg RC DAILY PRN PRN Reason: Constipation Stop: 06/15/18 21:42 Budesonide (Pulmicort) 0.5 mg HHN BIDRT [facility] Stop: 06/16/18 00:00 Last Admin: 04/18/18 18:48 Dose: 0.5 mg Cyanocobalamin (Vitamin B12) 100 mcg PO DAILY [facility] Stop: 06/16/18 08:59 Last Admin: 04/18/18 09:11 Dose: Not Given Divalproex Sodium (Depakote Er) 500 mg PO BID [facility]; Protocol Stop: 06/16/18 08:59 Last Admin: 04/18/18 17:29 Dose: Not Given Docusate Sodium (Colace) 100 mg PO DAILY PRN PRN Reason: STOOL SOFTENER Stop: 06/15/18 22:29 Enalaprilat (Vasotec) 1.25 mg IVP Q6HR PRN PRN Reason: INCREASED HEART RATE Stop: 06/17/18 17:59 Furosemide (Lasix) 20 mg IVP X1 [facility] Stop: 04/19/18 07:03 Ceftriaxone Sodium 1 gm/ (Dextrose) 50 mls @ 100 mls/hr IV Q24H [facility] Stop: 06/15/18 21:29 Last Infusion: 04/18/18 21:26 Dose: Infused Potassium Chloride/Dextrose/Sod Cl (D5-0.45ns W/20 Meq Kcl) 1,000 mls @ 50 mls/ hr IV .Q20H [facility] Stop: 06/15/18 21:44 Last Admin: 04/18/18 22:33 Dose: 50 mls/hr Azithromycin 500 mg/ Sodium (Chloride) 250 mls @ 250 mls/hr IV Q24HR [facility] Stop: 06/16/18 07:29 Last Infusion: 04/18/18 10:54 Dose: Infused Levetiracetam 500 mg/ Sodium (Chloride) 105 mls @ 400 mls/hr IV Q12H [facility] Stop: 06/17/18 21:59 Last Infusion: 04/18/18 22:48 Dose: Infused Levothyroxine Sodium (Synthroid) 0.05 mg PO QDAC [facility] Stop: 06/17/18 07:29 Last Admin: 04/18/18 09:11 Dose: Not Given Methylprednisolone Sodium Succinate (Solu-Medrol) 40 mg IV Q8HR [facility] Stop: 06/16/18 00:00 Last Admin: 04/19/18 05:58 Dose: 40 mg Metoprolol Tartrate (Lopressor) 25 mg PO BID [facility] Stop: 06/16/18 08:59 Last Admin: 04/18/18 17:29 Dose: Not Given Morphine Sulfate (Morphine) 2 mg IVP Q6H PRN PRN Reason: MODERATE PAIN Stop: 06/17/18 13:02 Last Admin: 04/18/18 21:22 Dose: 2 mg Quetiapine Fumarate (Seroquel) 12.5 mg PO BID [facility]; Protocol Stop: 06/16/18 08:59 Last Admin: 04/18/18 17:30 Dose: Not Given Simvastatin (Zocor) 10 mg PO HS [facility]; Protocol Stop: 06/16/18 20:59 Last Admin: 04/18/18 21:27 Dose: Not Given General: Alert, No acute distress HEENT: Atraumatic, PERRLA, EOMI Neck: Supple Cardiovascular: Regular rate, Normal S1, Normal S2 Lungs: Clear to auscultation Abdomen: Bowel sounds, Soft Extremities: no Clubbing, no Cyanosis, no Edema Neurological: Normal gait, Normal speech Assessment/Plan - Assessment Assessment: LLL pneumonia cardiac arrthymmia poor oral intake abdominal mass Sepsis UTI leukocytosis Willie. pleural effusion CVA w/ hemiplegia Seizure disorder HTN Hyperlipidemia CAD PUD GERD OA - Plan Plan: pulmonary consult w/ Dr. Gato Jiménez IV Rocephin and IV Azithromycin repeat CBC, CMP breathing treatments K+ supplements ID consult Cardiology consult chest xray today Nutritional Asmnt/Malnutr-PDOC - Dietary Evaluation Malnutrition Findings (Please click <Entered> for more info): Nutritional Asmnt/Malnutrition Start: 04/18/18 17: 58 Text: Status: Complete Freq: Protocol: Document 04/18/18 17:58 VERÓNICACONNIEMarisol (Rec: 04/18/18 18:07 CHAY [email or web address]) Nutritional Asmnt/Malnutrition Patient General Information Nutritional Screening High Risk Consult Diagnosis right lower lob NPA, bilateral pleural effus Pertinent Medical Hx/Surgical Hx CAD, HTN, hyperlipidemia, CVA, seizure, aphasia, GERD, anxiety, OA, healues, weakness , muscle atrophy Subjective Information Consult received for pt not tolerating diet. Per RN, pt failed swallow eval. Wait for family desicion about PEG. Current Diet Order/ Nutrition Support NPO Pertinent Medications vit B12, colace, synthroid, D5 -0.45ns w 20meq kcal, seroquel , Pertinent Labs 04/18 Na 146, Cl 108, Cr 0.4, glucose 179, Ca 8.1 Nutritional Hx/Data Height 1.57 m Height (Calculated Centimeters) 157.5 Current Weight (lbs) 56.699 kg Weight (Calculated Kilograms) 56.7 Weight (Calculated Grams) 68142.0 [place] Body Weight 110 Body Mass Index (BMI) 22.8 Weight Status Approriate GI Symptoms GI Symptoms None Last BM none Difficult in: Chewing Swallowing Skin Integrity/Comment: rash multiple sites Current %PO Negligible < 25% Estimated Nutritional Goals BEE in Kcals: Using Current wt Calories/Kcals/Kg 25-30 Kcals Calculated 0476-6960 Protein: Using Current wt Protein g/k Protein Calculated 57 Fluid: ml 1425-1710ml (1ml/kcal) Nutritional Problem 1. Problem Problem chewing/swallowing difficulty Etiology ?lethargy, ?cognition Signs/Symptoms: pt failed swallow eval Intervention/Recommendation Comments 1. Monitor NPO status. Consider alternative nutrition route. Wait for family decision. 2. Monitor PO intake, wt, labs and skin integrity 3. F/U as high risk in 2-3 days, 04/20-04/21 Expected Outcomes/Goals Expected Outcomes/Goals 1. PO to meet at least 75% of nutritional needs. 2. Wt stability, skin to remain intact, labs to approach WNL.
[2018-04-19] MEDS ORDERED: Probiotic Screen MC PRN (07:30)
[2018-04-19] MEDS: Levothyroxine 0.05 Mg Tab PO SCH (08:05)
[2018-04-19] MEDS: Multivitamin w/ Minerals Tab PO SCH (08:06)
[2018-04-19] MEDS: Azithromycin 500 MG in Sodium Chloride 0.9% 250 ML IV SCH (08:17)
--- NOTE | 2018-04-19 08:35 | Diagnostic Imaging Report ---
CHEST X-RAY: AP view INDICATION: Shortness of breath, pneumonia COMPARISON: 04/18/2018 FINDINGS: Suboptimal lung volumes are seen with small left effusion. Right basal increased lung markings are noted. Mild cardiomegaly is noted. Biapical pleural catheter is noted. IMPRESSION: Suboptimal lung volumes and small left effusion. Atelectasis versus infiltrate at the left base cannot be excluded Right basal density which may be due to atelectasis and possible superimposed infiltrate. Mild Cardiomegaly.
[2018-04-19] MEDS ORDERED: IOHEXOL 300mgI/mL 100 ML VIAL IVP ONE (08:37)
[2018-04-19 08:53] LABS: pH 7.49 (7.35-7.45)
[2018-04-19 08:54] LABS: ALLEN TEST Positive
--- NOTE | 2018-04-19 09:03 | Consultation ---
DATE OF CONSULTATION: 04/19/2018 CONSULTING PHYSICIAN: Dr. Chandler. REASON FOR CONSULTATION: Dysphagia. HISTORY OF PRESENT ILLNESS: The patient is a 58-year-old female with past medical history significant for coronary artery disease, hypertension, hyperlipidemia, dementia, old stroke in the past, seizure disorder. who comes into the hospital with respiratory distress and found to have pneumonia. The patient was admitted on 04/17/2018 with respiratory shortness of breath and has been found to have an infectious pneumonia and is now on antibiotic therapy. She has undergone a swallow evaluation and has been deemed not to be safe to eat nutrition by mouth and thus GI has been asked for G-tube consideration. At this time, the patient is on BiPAP [id number] and is really unable to participate in the interview. PAST MEDICAL HISTORY: Coronary artery disease, hypertension, hyperlipidemia, stroke in the past, seizure disorder, GERD. PAST SURGICAL HISTORY: No abdominal surgeries are reported. FAMILY HISTORY: Noncontributory. SOCIAL HISTORY: The patient has no documented history of alcoholism or drug use. CURRENT MEDICATIONS: Include albuterol, amlodipine, azithromycin, bisacodyl, budesonide, ceftriaxone, cyanocobalamin, Depakote, Colace, enalapril, Keppra, Synthroid, methylprednisolone, Seroquel, Zocor. PHYSICAL EXAMINATION: VITAL SIGNS: Blood pressure is 153/81, respiratory rate 16, oxygenation 98%, temperature is 98.2. GENERAL: The patient is lying at 30 degrees in bed. She has BiPAP in place. She is alert and oriented x 1. No apparent distress. HEENT: Normocephalic, atraumatic appearing head. The BiPAP is on and obscuring her ocular exam and mouth exam. NECK: Supple. No JVD or thyromegaly noted. CHEST: There is mechanical breath sounds bilaterally. CARDIOVASCULAR: S1, S2 present, tachycardic. ABDOMEN: Mildly obese, soft, nontender to palpation. No guarding, no rebound, no fluid distention. EXTREMITIES: Pitting edema noted bilaterally. Pulses are not present. There are venous stasis changes. SKIN: No obvious jaundice. LABORATORIES: White blood cell count is 10.2, hemoglobin 14.5, and platelet count is 140. Sodium 145, BUN 25, creatinine 0.3. AST 21, ALT 30, total bilirubin 0.5. An Abdomen and pelvis CT scan was performed on 04/17/2018 that shows a large 10.3 x 7.5 mass arising from the left lobe of the liver, peripheral central pedal enhancement may represent a hemangioma, although a liver mass protocol is recommended. There is additional smaller lesions of the right lobe, which are difficult to characterize, 3 cm right adrenal mass is noted. There are post surgical changes of the pelvis. IMPRESSION: This is a 58-year-old female with history of coronary artery disease, stroke in the past, seizure disorder, dementia, comes in the hospital with pneumonia, also found to have possible liver mass lesion. 1. Pneumonia. 2. Seizure disorder. 3. Stroke. 4. Dysphagia, failed swallow evaluation. 5. Liver mass. DISCUSSION: In terms of the failed swallow evaluation and dysphagia, G-tube is not unreasonable for this patient to maintain her nutritional status; however, we will need to try to see if the family will consent for this. Furthermore, she is not currently stable for an endoscopic procedure given her requirement for BiPAP. We will need to wait for her respiratory status to improve in order to do EGD with G-tube placement. In terms of the liver findings on CT scan, this should be investigated with the triple phase CT or MRI exam and/or to see if this represents hepatocellular carcinoma or benign hemangioma. In the meantime, we can send an alpha fetoprotein level for further characterization and order the CT scan if she is stable to do this. RECOMMENDATIONS: 1. Plan for EGD with G-tube placement if the family is willing to consent for the procedure and once the patient's respiratory status stabilized. 2. Send AFP level. 3. Arrange for the patient to have a triple phase contrast study of the liver if she is stable to undergo the exam to better evaluate the liver mass. 4. Send the hepatic panel to see if there is a viral cause the patient to have liver disease. We will continue to follow. Thank you for allowing us to participate in her care. Please call me with any further questions. JOB# [id number]
--- NOTE | 2018-04-19 13:05 | Consultation ---
DATE OF CONSULTATION: 04/19/[address] Dominic Chandler. HISTORY AND PHYSICAL: This is a 58-year-old oriental female patient who was brought to the Emergency Room with shortness of breath, congestion. The patient was found to have acute respiratory failure. The patient is on BiPAP at the present time, cardiac consult is requested. PAST MEDICAL HISTORY: Respiratory failure, COPD, hypertension, paraplegia, CVA with late effects, psychosis, dementia, hyperlipidemia, urinary tract infection, osteoporosis, angina. FAMILY HISTORY: Unremarkable. SOCIAL HISTORY: No history of smoking, alcohol abuse. ALLERGIES: None. PHYSICAL EXAMINATION: VITAL SIGNS: Blood pressure 130/80, pulse 70, respirations 20. HEAD: Normocephalic. No lumps or bumps. EYES: Pupils equal, reactive to light. Fundi show AV nicking, sclerae white, conjunctivae pink. NECK: Carotid 2+. Normal upstroke. JVD flat. Thyroid not palpable. Lymph nodes not palpable. CHEST: Shows increased AP diameter. No kyphosis, scoliosis. LUNGS: Bilateral rales, wheezing, rhonchi. HEART: PMI sixth intercostal space with lateral to midclavicular line. S1, S2, S3, S4, soft systolic murmur. ABDOMEN: Soft. Liver, spleen not palpable. No organomegaly. Bowel sounds active. NEUROLOGIC: The patient has paraplegia. EXTREMITIES: Peripheral pulses 1+. No pedal edema. CLINICAL IMPRESSION: Acute respiratory failure, on BiPAP; hypertension, paraplegia, CVA with late effect, psychosis, dementia, right lower lobe pneumonia, hyperlipidemia, angina, urinary tract infection and osteoporosis. PLAN: The patient to continue present care and we will get EKG, echocardiogram for left ventricular function. IV antibiotic. Continue BiPAP. JOB# [id number]
--- NOTE | 2018-04-19 14:05 | Infectious Disease Prog Note ---
Infectious Disease Subjective - Review of Systems Service Date: 04/19/18 Subjective: No fever. Short of breath. On BiPAP. Infectious Disease Objective - Results Result Diagrams: 04/19/18 04:40 04/19/18 04:40 Recent Labs: Laboratory Last Values WBC 10.2 Th/cmm (4.8-10.8) 04/19/18 04:40 RBC 4.45 Mil/cmm (3.80-5.10) 04/19/18 04:40 Hgb 14.5 gm/dL (12-16) 04/19/18 04:40 Hct 44.6 % (41.0-60) 04/19/18 04:40 MCV 100.1 fl (81-100) H 04/19/18 04:40 MCH 32.6 pg (27.0-31.0) H 04/19/18 04:40 MCHC Differential 32.6 pg (28.0-36.0) 04/19/18 04:40 RDW 16.3 % (11.5-20.0) 04/19/18 04:40 Plt Count 140 Th/cmm (150-400) L 04/19/18 04:40 MPV 9.6 fl 04/19/18 04:40 Add Manual Diff YES 04/19/18 04:40 Neutrophils % 81.4 % (40.0-80.0) H 04/18/18 05:00 Band Neutrophils % 5 % (0-10) 04/19/18 04:40 Lymphocytes % 15.2 % (20.0-50.0) L 04/18/18 05:00 Monocytes % 3.2 % (2.0-10.0) 04/18/18 05:00 Eosinophils % 0.0 % (0.0-5.0) 04/18/18 05:00 Basophils % 0.2 % (0.0-2.0) 04/18/18 05:00 Neutrophils (Manual) 88 % (40-80) H 04/19/18 04:40 Lymphocytes 5 % (20-50) L 04/19/18 04:40 Monocytes 2 % (2-10) 04/19/18 04:40 PT 15.0 SECONDS (9.5-11.5) H 04/16/18 16:10 INR 1.41 (0.5-1.4) H 04/16/18 16:10 PTT (Actin FS) 23.1 SECONDS (26.0-38.0) L 04/16/18 16:10 Specimen Source Arterial 04/19/18 08:38 Sample Site Left Radial 04/19/18 08:38 pH 7.49 (7.35-7.45) H 04/19/18 08:38 pCO2 39.0 mmHg (35.0-45.0) 04/19/18 08:38 pO2 58.0 mmHg (80.0-100.0) L 04/19/18 08:38 HCO3 29.4 mEq/L (20.0-26.0) H 04/19/18 08:38 Base Excess 5.9 mEq/L (-3.0-3.0) H 04/19/18 08:38 O2 Saturation 92.0 % (92.0-100.0) 04/19/18 08:38 Manjeet Test Positive 04/19/18 08:38 Vent Rate 14 04/19/18 08:38 Inspired O2 55 04/19/18 08:38 Tidal Volume N/A 04/19/18 08:38 PEEP N/A 04/19/18 08:38 Pressure (ins/psv/peep) N/A 04/19/18 08:38 Critical Value DM 04/19/18 08:38 Sodium 145 mEq/L (136-145) 04/19/18 04:40 Potassium 3.7 mEq/L (3.5-5.1) 04/19/18 04:40 Chloride 109 mEq/L (98-107) H 04/19/18 04:40 Carbon Dioxide 26.6 mEq/L (21.0-31.0) 04/19/18 04:40 Anion Gap 13.1 (7.0-16.0) 04/19/18 04:40 BUN 25 mg/dL (7-25) 04/19/18 04:40 Creatinine 0.3 mg/dL (0.6-1.2) L 04/19/18 04:40 Est GFR ( Amer) > 60.0 ml/min (>90) 04/19/18 04:40 Est GFR (Non-Af Amer) > 60.0 ml/min 04/19/18 04:40 BUN/Creatinine Ratio 83.3 04/19/18 04:40 Glucose 193 mg/dL (70-105) H 04/19/18 04:40 Whole Bld Lactic Acid 1.93 mmol/L (0.60-1.99) 04/17/18 09:35 Calcium 8.4 mg/dL (8.6-10.3) L 04/19/18 04:40 Magnesium 2.1 mg/dL (1.9-2.7) 04/16/18 23:40 Total Bilirubin 0.5 mg/dL (0.3-1.0) 04/19/18 04:40 Direct Bilirubin 0.16 mg/dL (0.0-0.2) 04/18/18 05:00 AST 21 U/L (13-39) 04/19/18 04:40 ALT 30 U/L (7-52) 04/19/18 04:40 Alkaline Phosphatase 47 U/L (34-104) 04/19/18 04:40 Ammonia 33 umol/L (16-53) 04/18/18 05:00 Troponin I 0.05 ng/mL (0.01-0.05) 04/16/18 16:10 B-Natriuretic Peptide 232.0 pg/mL (5.0-100.0) H 04/16/18 23:40 Total Protein 4.7 gm/dL (6.0-8.3) L 04/19/18 04:40 Albumin 2.5 gm/dL (3.7-5.3) L 04/19/18 04:40 Globulin 2.2 gm/dL 04/19/18 04:40 Albumin/Globulin Ratio 1.1 (1.0-1.8) 04/19/18 04:40 TSH 8.06 uIU/ml (0.34-5.60) H 04/16/18 16:10 Urine Source [place]OS [place] 04/17/18 00:15 Urine Color YELLOW 04/17/18 00:15 Urine Clarity HAZY (CLEAR) 04/17/18 00:15 Urine pH 6.0 (4.6 - 8.0) 04/17/18 00:15 Ur Specific Stacy 1.025 (1.005-1.030) 04/17/18 00:15 Urine Protein 100 mg/dL (NEGATIVE) H 04/17/18 00:15 Urine Glucose (UA) NEGATIVE mg/dL (NEGATIVE) 04/17/18 00:15 Urine Ketones TRACE mg/dL (NEGATIVE) 04/17/18 00:15 Urine Blood MODERATE (NEGATIVE) H 04/17/18 00:15 Urine Nitrate NEGATIVE (NEGATIVE) 04/17/18 00:15 Urine Bilirubin SMALL (NEGATIVE) H 04/17/18 00:15 Urine Urobilinogen 1.0 E.U./dL (0.2 - 1.0) 04/17/18 00:15 Ur Leukocyte Esterase NEGATIVE (NEGATIVE) 04/17/18 00:15 Urine RBC 5-10 /hpf (0-5) H 04/17/18 00:15 Urine WBC 0-2 /hpf (0-5) 04/17/18 00:15 Ur Epithelial Cells FEW /lpf (FEW) 04/17/18 00:15 Urine Bacteria NONE SEEN /hpf (NONE SEEN) 04/17/18 00:15 Valproic Acid 86.6 ug/mL (50.0-100.0) 04/16/18 16:10 Levetiracetam 38.6 04/16/18 16:10 - Physical Exam Vitals and I&O: Vital Signs Temp 96.6 F 04/19/18 11:46 Pulse 104 04/19/18 12:19 Resp 25 04/19/18 11:53 BP 153/102 04/19/18 12:19 Pulse Ox 98 04/19/18 11:53 Intake & Output 04/18/18 04/19/18 04/19/18 18:59 06:59 18:59 Intake Total 250 1155 Output Total 150 10 Balance 100 1145 Weight (lbs) 56.971 kg 70.579 kg Intake: Intake, IV Amount 250 1155 Azithromycin 500 mg In 250 Sodium Chloride 0.9% 250 ml @ 250 mls/hr IV Q24HR [facility] Rx#:[id number] D5-0.45NS w/20 mEq KCL 1, 1000 000 ml @ 50 mls/hr IV . Q20H [facility] Rx#:[id number] Levetiracetam 500 mg In 105 Sodium Chloride 0.9% 100 ml @ 400 mls/hr IV Q12H [facility] Rx#:[id number] cefTRIAXone 1 gm In 50 Dextrose 5% 50 ml @ 100 mls/hr IV Q24H [facility] Rx#: [id number] Output: Urine 150 10 Other: # Bowel Movements 0 0 Weight Source Bedscale Bedscale Active Medications: Current Medications Albuterol/Ipratropium (Duoneb Neb) 3 ml HHN Q3H [facility] Stop: 06/16/18 00:00 Last Admin: 04/19/18 11:53 Dose: 3 ml Amlodipine Besylate (Norvasc) 10 mg PO DAILY [facility] Stop: 06/16/18 08:59 Last Admin: 04/19/18 08:05 Dose: Not Given Bisacodyl (Dulcolax 10 Mg Supp) 10 mg RC DAILY PRN PRN Reason: Constipation Stop: 06/15/18 21:42 Budesonide (Pulmicort) 0.5 mg HHN BIDRT [facility] Stop: 06/16/18 00:00 Last Admin: 04/19/18 07:06 Dose: 0.5 mg Cyanocobalamin (Vitamin B12) 100 mcg PO DAILY [facility] Stop: 06/16/18 08:59 Last Admin: 04/19/18 08:06 Dose: Not Given Divalproex Sodium (Depakote Er) 500 mg PO BID [facility]; Protocol Stop: 06/16/18 08:59 Last Admin: 04/19/18 08:06 Dose: Not Given Docusate Sodium (Colace) 100 mg PO DAILY PRN PRN Reason: STOOL SOFTENER Stop: 06/15/18 22:29 Enalaprilat (Vasotec) 1.25 mg IVP Q6HR PRN PRN Reason: INCREASED HEART RATE Stop: 06/17/18 17:59 Last Admin: 04/19/18 12:19 Dose: 1.25 mg Ceftriaxone Sodium 1 gm/ (Dextrose) 50 mls @ 100 mls/hr IV Q24H [facility] Stop: 06/15/18 21:29 Last Infusion: 04/18/18 21:26 Dose: Infused Potassium Chloride/Dextrose/Sod Cl (D5-0.45ns W/20 Meq Kcl) 1,000 mls @ 50 mls/ hr IV .Q20H [facility] Stop: 06/15/18 21:44 Last Admin: 04/18/18 22:33 Dose: 50 mls/hr Levetiracetam 500 mg/ Sodium (Chloride) 105 mls @ 400 mls/hr IV Q12H [facility] Stop: 06/17/18 21:59 Last Admin: 04/19/18 09:50 Dose: 400 mls/hr Azithromycin 500 mg/ Sodium (Chloride) 250 mls @ 250 mls/hr IV Q24H [facility] Stop: 06/18/18 08:59 Last Admin: 04/19/18 08:17 Dose: 250 mls/hr Levothyroxine Sodium (Synthroid) 0.05 mg PO QDAC [facility] Stop: 06/17/18 07:29 Last Admin: 04/19/18 08:05 Dose: Not Given Methylprednisolone Sodium Succinate (Solu-Medrol) 40 mg IV Q8HR [facility] Stop: 06/16/18 00:00 Last Admin: 04/19/18 12:28 Dose: 40 mg Metoprolol Tartrate (Lopressor) 25 mg PO BID [facility] Stop: 06/16/18 08:59 Last Admin: 04/19/18 08:06 Dose: Not Given Miscellaneous (Probiotic Screen) 1 ea MC PRN PRN PRN Reason: PROTOCOL Stop: 06/18/18 07:29 Morphine Sulfate (Morphine) 2 mg IVP Q6H PRN PRN Reason: MODERATE PAIN Stop: 06/17/18 13:02 Last Admin: 04/18/18 21:22 Dose: 2 mg Quetiapine Fumarate (Seroquel) 12.5 mg PO BID [facility]; Protocol Stop: 06/16/18 08:59 Last Admin: 04/19/18 08:06 Dose: Not Given Simvastatin (Zocor) 10 mg PO HS [facility]; Protocol Stop: 06/16/18 20:59 Last Admin: 04/18/18 21:27 Dose: Not Given General: no acute distress, well developed, well nourished HEENT: atraumatic, normocephalic, PERRLA, EOMI Neck: supple, no thyromegaly Cardiovascular: S1S2, regular Lungs: clear to auscultation bilaterally, clear to percussion Abdomen: soft, no tender, no distended, no mass Extremities: no cyanosis, no clubbing, no edema Neurological: awake, alert, oriented Skin: intact Infectious Disease Assmt/Plan - Assessment Assessment: 1. Lactic acidosis. Improved 2. Right lower lobe pneumonia. 3. Dementia. 4. Cerebrovascular accident. 5. Hypertension. - Plan Plan: Continue Rocephin and Zithromax. Check chest x-ray in the morning. Nutritional Asmnt/Malnutr-PDOC - Dietary Evaluation Malnutrition Findings (Please click <Entered> for more info): Nutritional Asmnt/Malnutrition Start: 04/18/18 17: 58 Text: Status: Complete Freq: Protocol: Document 04/18/18 17:58 LCCONNIEG (Rec: 04/18/18 18:07 CONNIEG [id number]) Nutritional Asmnt/Malnutrition Patient General Information Nutritional Screening High Risk Consult Diagnosis right lower lob NPA, bilateral pleural effus Pertinent Medical Hx/Surgical Hx CAD, HTN, hyperlipidemia, CVA, seizure, aphasia, GERD, anxiety, OA, healues, weakness , muscle atrophy Subjective Information Consult received for pt not tolerating diet. Per RN, pt failed swallow eval. Wait for family desicion about PEG. Current Diet Order/ Nutrition Support NPO Pertinent Medications vit B12, colace, synthroid, D5 -0.45ns w 20meq kcal, seroquel , Pertinent Labs 04/18 Na 146, Cl 108, Cr 0.4, glucose 179, Ca 8.1 Nutritional Hx/Data Height 1.57 m Height (Calculated Centimeters) 157.5 Current Weight (lbs) 56.699 kg Weight (Calculated Kilograms) 56.7 Weight (Calculated Grams) 18242.0 Lane Body Weight 110 Body Mass Index (BMI) 22.8 Weight Status Approriate GI Symptoms GI Symptoms None Last BM none Difficult in: Chewing Swallowing Skin Integrity/Comment: rash multiple sites Current %PO Negligible < 25% Estimated Nutritional Goals BEE in Kcals: Using Current wt Calories/Kcals/Kg 25-30 Kcals Calculated 4377-8136 Protein: Using Current wt Protein g/k Protein Calculated 57 Fluid: ml 1425-1710ml (1ml/kcal) Nutritional Problem 1. Problem Problem chewing/swallowing difficulty Etiology ?lethargy, ?cognition Signs/Symptoms: pt failed swallow eval Intervention/Recommendation Comments 1. Monitor NPO status. Consider alternative nutrition route. Wait for family decision. 2. Monitor PO intake, wt, labs and skin integrity 3. F/U as high risk in 2-3 days, 04/20-04/21 Expected Outcomes/Goals Expected Outcomes/Goals 1. PO to meet at least 75% of nutritional needs. 2. Wt stability, skin to remain intact, labs to approach WNL.
[2018-04-19] MEDS: D5-0.45NS w/20 mEq KCL 1,000 ML IV SCH (14:46)
--- NOTE | 2018-04-19 21:15 | Progress Notes ---
DATE: 04/19/2018 PULMONARY PROGRESS NOTE PROBLEM LIST: 1. Persistent respiratory failure. 2. Tracheobronchitis. 3. Previous history of cerebrovascular accident. SYMPTOMS: Nil. Still not waking up, barely opens eyes, still on 50% of oxygen with BiPAP. PHYSICAL EXAMINATION: VITAL SIGNS: On exam, T-max 96.6, blood pressure 144/99 and saturation 98 on 55% of oxygen. NECK: Veins not visualized. CHEST: Shows diminished air entry without much of adventitious breath sound. HEART: Regular. ABDOMEN: Slightly distended, otherwise unremarkable. EXTREMITIES: Show some atrophic changes, otherwise unremarkable. LABORATORY DATA: The patient's chest x-ray shows still haziness at the bases, but otherwise unremarkable and the patient's pertinent laboratory studies: White count is 10,000, hemoglobin 14.5. ABG still marginal on 55% of oxygen with pO2 of 58. ASSESSMENT: 1. The patient clinically not much changed, significant ALOC question another severe. 2. Persistent hypoxemic, possibly bilateral basilar infiltrate and/or possibly small effusion. PLANS AND SUGGESTIONS: Discussed with the patient's brother at length the need to have a feeding. He says he has not made a decision what to do, would let us know one in a day. In the meantime, continue current treatment, etc., and go from there. JOB# [id number]
[2018-04-19 21:56] LABS: A1C % 6.1 % (4.0-6.0)
[2018-04-19] MEDS: Morphine Sulfate 2 mg/mL 1mL Syr IVP PRN (22:09)
[2018-04-20] MEDS: Albuterol/Ipratropium Neb 3 ML AERS HHN SCH ×9 (00:24→23:18)
[2018-04-20] MEDS: methylPREDNISolone SS 40 mg Vial IV SCH ×3 (05:13→20:40)
[2018-04-20] MEDS: Morphine Sulfate 2 mg/mL 1mL Syr IVP PRN (05:14)
[2018-04-20 06:34] LABS: ALB/GLOB RATIO 1.2 (1.0-1.8); ALBUMIN 2.5 gm/dL (3.7-5.3); ALKALINE PHOSPHATASE 45 U/L (34-104); ANION GAP 12.6 (7.0-16.0); BILIRUBIN,TOTAL 0.5 mg/dL (0.3-1.0); BUN - UREA NITROGEN 22 mg/dL (7-25); CALCIUM SERUM 8.5 mg/dL (8.6-10.3); CARBON DIOXIDE 26.3 mEq/L (21.0-31.0); CHLORIDE 110 mEq/L (98-107); CREATININE - SERUM 0.4 mg/dL (0.6-1.2); GFR AFRICAN-AMERICAN > 60.0 ml/min (>90); GFR NON AFRICAN-AMERICAN > 60.0 ml/min; GLUCOSE 181 mg/dL (70-105); POTASSIUM SERUM 3.9 mEq/L (3.5-5.1); SGOT 17 U/L (13-39); SGPT/ALT 27 U/L (7-52); SODIUM SERUM 145 mEq/L (136-145); TOTAL PROTEIN,SERUM 4.6 gm/dL (6.0-8.3)
[2018-04-20] MEDS: Levothyroxine 0.05 Mg Tab PO SCH (06:39)
--- NOTE | 2018-04-20 07:32 | General Progress Note ---
Subjective - Review of Systems Service Date: 04/20/18 Subjective: Patient was seen and examined. persistent respiratory failure on BiPaP. Family requested to repeat swallow evaluation. Poor PO intake. Objective - Results Result Diagrams: 04/19/18 04:40 04/20/18 06:00 Recent Labs: Laboratory Last Values WBC 10.2 Th/cmm (4.8-10.8) 04/19/18 04:40 RBC 4.45 Mil/cmm (3.80-5.10) 04/19/18 04:40 Hgb 14.5 gm/dL (12-16) 04/19/18 04:40 Hct 44.6 % (41.0-60) 04/19/18 04:40 MCV 100.1 fl (81-100) H 04/19/18 04:40 MCH 32.6 pg (27.0-31.0) H 04/19/18 04:40 MCHC Differential 32.6 pg (28.0-36.0) 04/19/18 04:40 RDW 16.3 % (11.5-20.0) 04/19/18 04:40 Plt Count 140 Th/cmm (150-400) L 04/19/18 04:40 MPV 9.6 fl 04/19/18 04:40 Add Manual Diff YES 04/19/18 04:40 Neutrophils % 81.4 % (40.0-80.0) H 04/18/18 05:00 Band Neutrophils % 5 % (0-10) 04/19/18 04:40 Lymphocytes % 15.2 % (20.0-50.0) L 04/18/18 05:00 Monocytes % 3.2 % (2.0-10.0) 04/18/18 05:00 Eosinophils % 0.0 % (0.0-5.0) 04/18/18 05:00 Basophils % 0.2 % (0.0-2.0) 04/18/18 05:00 Neutrophils (Manual) 88 % (40-80) H 04/19/18 04:40 Lymphocytes 5 % (20-50) L 04/19/18 04:40 Monocytes 2 % (2-10) 04/19/18 04:40 PT 15.0 SECONDS (9.5-11.5) H 04/16/18 16:10 INR 1.41 (0.5-1.4) H 04/16/18 16:10 PTT (Actin FS) 23.1 SECONDS (26.0-38.0) L 04/16/18 16:10 Specimen Source Arterial 04/19/18 08:38 Sample Site Left Radial 04/19/18 08:38 pH 7.49 (7.35-7.45) H 04/19/18 08:38 pCO2 39.0 mmHg (35.0-45.0) 04/19/18 08:38 pO2 58.0 mmHg (80.0-100.0) L 04/19/18 08:38 HCO3 29.4 mEq/L (20.0-26.0) H 04/19/18 08:38 Base Excess 5.9 mEq/L (-3.0-3.0) H 04/19/18 08:38 O2 Saturation 92.0 % (92.0-100.0) 04/19/18 08:38 Manjeet Test Positive 04/19/18 08:38 Vent Rate 14 04/19/18 08:38 Inspired O2 55 04/19/18 08:38 Tidal Volume N/A 04/19/18 08:38 PEEP N/A 04/19/18 08:38 Pressure (ins/psv/peep) N/A 04/19/18 08:38 Critical Value DM 04/19/18 08:38 Sodium 145 mEq/L (136-145) 04/20/18 06:00 Potassium 3.9 mEq/L (3.5-5.1) 04/20/18 06:00 Chloride 110 mEq/L (98-107) H 04/20/18 06:00 Carbon Dioxide 26.3 mEq/L (21.0-31.0) 04/20/18 06:00 Anion Gap 12.6 (7.0-16.0) 04/20/18 06:00 BUN 22 mg/dL (7-25) 04/20/18 06:00 Creatinine 0.4 mg/dL (0.6-1.2) L 04/20/18 06:00 Est GFR ( Amer) > 60.0 ml/min (>90) 04/20/18 06:00 Est GFR (Non-Af Amer) > 60.0 ml/min 04/20/18 06:00 BUN/Creatinine Ratio 55.0 04/20/18 06:00 Glucose 181 mg/dL (70-105) H 04/20/18 06:00 Hemoglobin A1c % 6.1 % (4.0-6.0) H 04/19/18 04:40 Whole Bld Lactic Acid 1.93 mmol/L (0.60-1.99) 04/17/18 09:35 Calcium 8.5 mg/dL (8.6-10.3) L 04/20/18 06:00 Magnesium 2.1 mg/dL (1.9-2.7) 04/16/18 23:40 Total Bilirubin 0.5 mg/dL (0.3-1.0) 04/20/18 06:00 Direct Bilirubin 0.16 mg/dL (0.0-0.2) 04/18/18 05:00 AST 17 U/L (13-39) 04/20/18 06:00 ALT 27 U/L (7-52) 04/20/18 06:00 Alkaline Phosphatase 45 U/L (34-104) 04/20/18 06:00 Ammonia 33 umol/L (16-53) 04/20/18 06:00 Troponin I 0.05 ng/mL (0.01-0.05) 04/16/18 16:10 B-Natriuretic Peptide 24.0 pg/mL (5.0-100.0) 04/20/18 06:00 Total Protein 4.6 gm/dL (6.0-8.3) L 04/20/18 06:00 Albumin 2.5 gm/dL (3.7-5.3) L 04/20/18 06:00 Globulin 2.1 gm/dL 04/20/18 06:00 Albumin/Globulin Ratio 1.2 (1.0-1.8) 04/20/18 06:00 TSH 8.06 uIU/ml (0.34-5.60) H 04/16/18 16:10 Urine Source [place] 04/17/18 00:15 Urine Color YELLOW 04/17/18 00:15 Urine Clarity HAZY (CLEAR) 04/17/18 00:15 Urine pH 6.0 (4.6 - 8.0) 04/17/18 00:15 Ur Specific [place] 1.025 (1.005-1.030) 04/17/18 00:15 Urine Protein 100 mg/dL (NEGATIVE) H 04/17/18 00:15 Urine Glucose (UA) NEGATIVE mg/dL (NEGATIVE) 04/17/18 00:15 Urine Ketones TRACE mg/dL (NEGATIVE) 04/17/18 00:15 Urine Blood MODERATE (NEGATIVE) H 04/17/18 00:15 Urine Nitrate NEGATIVE (NEGATIVE) 04/17/18 00:15 Urine Bilirubin SMALL (NEGATIVE) H 04/17/18 00:15 Urine Urobilinogen 1.0 E.U./dL (0.2 - 1.0) 04/17/18 00:15 Ur Leukocyte Esterase NEGATIVE (NEGATIVE) 04/17/18 00:15 Urine RBC 5-10 /hpf (0-5) H 04/17/18 00:15 Urine WBC 0-2 /hpf (0-5) 04/17/18 00:15 Ur Epithelial Cells FEW /lpf (FEW) 04/17/18 00:15 Urine Bacteria NONE SEEN /hpf (NONE SEEN) 04/17/18 00:15 Valproic Acid 86.6 ug/mL (50.0-100.0) 04/16/18 16:10 Levetiracetam 38.6 04/16/18 16:10 - Physical Exam Vitals and I&O: Vital Signs Temp 96.7 F 04/20/18 04:00 Pulse 88 04/20/18 05:50 Resp 18 04/20/18 05:50 BP 151/90 04/20/18 04:00 Pulse Ox 96 04/20/18 05:08 Intake & Output 04/19/18 04/20/18 04/20/18 18:59 06:59 18:59 Intake Total 915.833 155 Output Total 500 125 Balance 415.833 30 Weight (lbs) 70.579 kg 77.564 kg Intake: Intake, IV Amount 915.833 155 D5-0.45NS w/20 mEq KCL 1, 810.833 000 ml @ 50 mls/hr IV . Q20H [facility] Rx#:[id number] Levetiracetam 500 mg In 105 105 Sodium Chloride 0.9% 100 ml @ 400 mls/hr IV Q12H [facility] Rx#:[id number] cefTRIAXone 1 gm In 50 Dextrose 5% 50 ml @ 100 mls/hr IV Q24H [facility] Rx#: [id number] Oral 0 Output: Urine 500 125 Other: # Bowel Movements 0 Weight Source Bedscale Bedscale Active Medications: Current Medications Albuterol/Ipratropium (Duoneb Neb) 3 ml HHN Q3H [facility] Stop: 06/16/18 00:00 Last Admin: 04/20/18 07:21 Dose: 3 ml Amlodipine Besylate (Norvasc) 10 mg PO DAILY [facility] Stop: 06/16/18 08:59 Last Admin: 04/19/18 08:05 Dose: Not Given Bisacodyl (Dulcolax 10 Mg Supp) 10 mg RC DAILY PRN PRN Reason: Constipation Stop: 06/15/18 21:42 Budesonide (Pulmicort) 0.5 mg HHN BIDRT [facility] Stop: 06/16/18 00:00 Last Admin: 04/19/18 18:48 Dose: 0.5 mg Cyanocobalamin (Vitamin B12) 100 mcg PO DAILY [facility] Stop: 06/16/18 08:59 Last Admin: 04/19/18 08:06 Dose: Not Given Divalproex Sodium (Depakote Er) 500 mg PO BID [facility]; Protocol Stop: 06/16/18 08:59 Last Admin: 04/19/18 16:03 Dose: Not Given Docusate Sodium (Colace) 100 mg PO DAILY PRN PRN Reason: STOOL SOFTENER Stop: 06/15/18 22:29 Enalaprilat (Vasotec) 1.25 mg IVP Q6HR PRN PRN Reason: INCREASED HEART RATE Stop: 06/17/18 17:59 Last Admin: 04/19/18 12:19 Dose: 1.25 mg Ceftriaxone Sodium 1 gm/ (Dextrose) 50 mls @ 100 mls/hr IV Q24H [facility] Stop: 06/15/18 21:29 Last Infusion: 04/19/18 22:51 Dose: Infused Potassium Chloride/Dextrose/Sod Cl (D5-0.45ns W/20 Meq Kcl) 1,000 mls @ 50 mls/ hr IV .Q20H [facility] Stop: 06/15/18 21:44 Last Admin: 04/19/18 14:46 Dose: 50 mls/hr Levetiracetam 500 mg/ Sodium (Chloride) 105 mls @ 400 mls/hr IV Q12H [facility] Stop: 06/17/18 21:59 Last Infusion: 04/20/18 00:30 Dose: Infused Azithromycin 500 mg/ Sodium (Chloride) 250 mls @ 250 mls/hr IV Q24H [facility] Stop: 06/18/18 08:59 Last Admin: 04/19/18 08:17 Dose: 250 mls/hr Levothyroxine Sodium (Synthroid) 0.05 mg PO QDAC [facility] Stop: 06/17/18 07:29 Last Admin: 04/20/18 06:39 Dose: Not Given Methylprednisolone Sodium Succinate (Solu-Medrol) 40 mg IV Q8HR [facility] Stop: 06/16/18 00:00 Last Admin: 04/20/18 05:13 Dose: 40 mg Metoprolol Tartrate (Lopressor) 25 mg PO BID [facility] Stop: 06/16/18 08:59 Last Admin: 04/19/18 16:03 Dose: Not Given Miscellaneous (Probiotic Screen) 1 ea MC PRN PRN PRN Reason: PROTOCOL Stop: 06/18/18 07:29 Morphine Sulfate (Morphine) 2 mg IVP Q6H PRN PRN Reason: MODERATE PAIN Stop: 06/17/18 13:02 Last Admin: 04/20/18 05:14 Dose: 2 mg Quetiapine Fumarate (Seroquel) 12.5 mg PO BID [facility]; Protocol Stop: 06/16/18 08:59 Last Admin: 04/19/18 16:03 Dose: Not Given Simvastatin (Zocor) 10 mg PO HS [facility]; Protocol Stop: 06/16/18 20:59 Last Admin: 04/19/18 22:09 Dose: Not Given General: Alert, No acute distress HEENT: Atraumatic, PERRLA, EOMI Neck: Supple Cardiovascular: Regular rate, Normal S1, Normal S2 Lungs: Other (decreased lung sounds) Abdomen: Bowel sounds, Soft Extremities: no Clubbing, no Cyanosis, no Edema Neurological: Normal gait, Normal speech Assessment/Plan - Assessment Assessment: LLL pneumonia persistent respiratory failure cardiac arrthymmia poor oral intake abdominal mass Sepsis UTI leukocytosis Willie. pleural effusion CVA w/ hemiplegia Seizure disorder HTN Hyperlipidemia CAD PUD GERD OA - Plan Plan: pulmonary consult w/ Dr. D. Jiménez IV Rocephin and IV Azithromycin for repeat swallow evaluation repeat CBC, CMP breathing treatments K+ supplements ID consult Cardiology consult chest xray today Nutritional Asmnt/Malnutr-PDOC - Dietary Evaluation Malnutrition Findings (Please click <Entered> for more info): Nutritional Asmnt/Malnutrition Start: 04/18/18 17: 58 Text: Status: Complete Freq: Protocol: Document 04/18/18 17:58 CHAY (Rec: 04/18/18 18:07 CHAS [id number]) Nutritional Asmnt/Malnutrition Patient General Information Nutritional Screening High Risk Consult Diagnosis right lower lob NPA, bilateral pleural effus Pertinent Medical Hx/Surgical Hx CAD, HTN, hyperlipidemia, CVA, seizure, aphasia, GERD, anxiety, OA, healues, weakness , muscle atrophy Subjective Information Consult received for pt not tolerating diet. Per RN, pt failed swallow eval. Wait for family desicion about PEG. Current Diet Order/ Nutrition Support NPO Pertinent Medications vit B12, colace, synthroid, D5 -0.45ns w 20meq kcal, seroquel , Pertinent Labs 04/18 Na 146, Cl 108, Cr 0.4, glucose 179, Ca 8.1 Nutritional Hx/Data Height 1.57 m Height (Calculated Centimeters) 157.5 Current Weight (lbs) 56.699 kg Weight (Calculated Kilograms) 56.7 Weight (Calculated Grams) 45748.0 [place] Body Weight 110 Body Mass Index (BMI) 22.8 Weight Status Approriate GI Symptoms GI Symptoms None Last BM none Difficult in: Chewing Swallowing Skin Integrity/Comment: rash multiple sites Current %PO Negligible < 25% Estimated Nutritional Goals BEE in Kcals: Using Current wt Calories/Kcals/Kg 25-30 Kcals Calculated 6400-5450 Protein: Using Current wt Protein g/k Protein Calculated 57 Fluid: ml 1425-1710ml (1ml/kcal) Nutritional Problem 1. Problem Problem chewing/swallowing difficulty Etiology ?lethargy, ?cognition Signs/Symptoms: pt failed swallow eval Intervention/Recommendation Comments 1. Monitor NPO status. Consider alternative nutrition route. Wait for family decision. 2. Monitor PO intake, wt, labs and skin integrity 3. F/U as high risk in 2-3 days, 04/20-04/21 Expected Outcomes/Goals Expected Outcomes/Goals 1. PO to meet at least 75% of nutritional needs. 2. Wt stability, skin to remain intact, labs to approach WNL.
[2018-04-20] MEDS: Budesonide 0.5 Mg/2 mL Ud HHN SCH ×2 (07:45→18:50)
[2018-04-20] MEDS: Multivitamin w/ Minerals Tab PO SCH (08:31)
[2018-04-20] MEDS: Azithromycin 500 MG in Sodium Chloride 0.9% 250 ML IV SCH (08:33)
--- NOTE | 2018-04-20 08:49 | GI Progress Note ---
Subjective - Review of Systems Service Date: 04/20/18 Subjective: Still requiring BiPAP, no other events Objective - Results Result Diagrams: 04/19/18 04:40 04/20/18 06:00 Recent Labs: Laboratory Last Values WBC 10.2 Th/cmm (4.8-10.8) 04/19/18 04:40 RBC 4.45 Mil/cmm (3.80-5.10) 04/19/18 04:40 Hgb 14.5 gm/dL (12-16) 04/19/18 04:40 Hct 44.6 % (41.0-60) 04/19/18 04:40 MCV 100.1 fl (81-100) H 04/19/18 04:40 MCH 32.6 pg (27.0-31.0) H 04/19/18 04:40 MCHC Differential 32.6 pg (28.0-36.0) 04/19/18 04:40 RDW 16.3 % (11.5-20.0) 04/19/18 04:40 Plt Count 140 Th/cmm (150-400) L 04/19/18 04:40 MPV 9.6 fl 04/19/18 04:40 Add Manual Diff YES 04/19/18 04:40 Neutrophils % 81.4 % (40.0-80.0) H 04/18/18 05:00 Band Neutrophils % 5 % (0-10) 04/19/18 04:40 Lymphocytes % 15.2 % (20.0-50.0) L 04/18/18 05:00 Monocytes % 3.2 % (2.0-10.0) 04/18/18 05:00 Eosinophils % 0.0 % (0.0-5.0) 04/18/18 05:00 Basophils % 0.2 % (0.0-2.0) 04/18/18 05:00 Neutrophils (Manual) 88 % (40-80) H 04/19/18 04:40 Lymphocytes 5 % (20-50) L 04/19/18 04:40 Monocytes 2 % (2-10) 04/19/18 04:40 PT 15.0 SECONDS (9.5-11.5) H 04/16/18 16:10 INR 1.41 (0.5-1.4) H 04/16/18 16:10 PTT (Actin FS) 23.1 SECONDS (26.0-38.0) L 04/16/18 16:10 Specimen Source Arterial 04/19/18 08:38 Sample Site Left Radial 04/19/18 08:38 pH 7.49 (7.35-7.45) H 04/19/18 08:38 pCO2 39.0 mmHg (35.0-45.0) 04/19/18 08:38 pO2 58.0 mmHg (80.0-100.0) L 04/19/18 08:38 HCO3 29.4 mEq/L (20.0-26.0) H 04/19/18 08:38 Base Excess 5.9 mEq/L (-3.0-3.0) H 04/19/18 08:38 O2 Saturation 92.0 % (92.0-100.0) 04/19/18 08:38 Manjeet Test Positive 04/19/18 08:38 Vent Rate 14 04/19/18 08:38 Inspired O2 55 04/19/18 08:38 Tidal Volume N/A 04/19/18 08:38 PEEP N/A 04/19/18 08:38 Pressure (ins/psv/peep) N/A 04/19/18 08:38 Critical Value DM 04/19/18 08:38 Sodium 145 mEq/L (136-145) 04/20/18 06:00 Potassium 3.9 mEq/L (3.5-5.1) 04/20/18 06:00 Chloride 110 mEq/L (98-107) H 04/20/18 06:00 Carbon Dioxide 26.3 mEq/L (21.0-31.0) 04/20/18 06:00 Anion Gap 12.6 (7.0-16.0) 04/20/18 06:00 BUN 22 mg/dL (7-25) 04/20/18 06:00 Creatinine 0.4 mg/dL (0.6-1.2) L 04/20/18 06:00 Est GFR ( Amer) > 60.0 ml/min (>90) 04/20/18 06:00 Est GFR (Non-Af Amer) > 60.0 ml/min 04/20/18 06:00 BUN/Creatinine Ratio 55.0 04/20/18 06:00 Glucose 181 mg/dL (70-105) H 04/20/18 06:00 Hemoglobin A1c % 6.1 % (4.0-6.0) H 04/19/18 04:40 Whole Bld Lactic Acid 1.93 mmol/L (0.60-1.99) 04/17/18 09:35 Calcium 8.5 mg/dL (8.6-10.3) L 04/20/18 06:00 Magnesium 2.1 mg/dL (1.9-2.7) 04/16/18 23:40 Total Bilirubin 0.5 mg/dL (0.3-1.0) 04/20/18 06:00 Direct Bilirubin 0.16 mg/dL (0.0-0.2) 04/18/18 05:00 AST 17 U/L (13-39) 04/20/18 06:00 ALT 27 U/L (7-52) 04/20/18 06:00 Alkaline Phosphatase 45 U/L (34-104) 04/20/18 06:00 Ammonia 33 umol/L (16-53) 04/20/18 06:00 Troponin I 0.05 ng/mL (0.01-0.05) 04/16/18 16:10 B-Natriuretic Peptide 24.0 pg/mL (5.0-100.0) 04/20/18 06:00 Total Protein 4.6 gm/dL (6.0-8.3) L 04/20/18 06:00 Albumin 2.5 gm/dL (3.7-5.3) L 04/20/18 06:00 Globulin 2.1 gm/dL 04/20/18 06:00 Albumin/Globulin Ratio 1.2 (1.0-1.8) 04/20/18 06:00 TSH 8.06 uIU/ml (0.34-5.60) H 04/16/18 16:10 Urine Source [place] 04/17/18 00:15 Urine Color YELLOW 04/17/18 00:15 Urine Clarity HAZY (CLEAR) 04/17/18 00:15 Urine pH 6.0 (4.6 - 8.0) 04/17/18 00:15 Ur Specific [place] 1.025 (1.005-1.030) 04/17/18 00:15 Urine Protein 100 mg/dL (NEGATIVE) H 04/17/18 00:15 Urine Glucose (UA) NEGATIVE mg/dL (NEGATIVE) 04/17/18 00:15 Urine Ketones TRACE mg/dL (NEGATIVE) 04/17/18 00:15 Urine Blood MODERATE (NEGATIVE) H 04/17/18 00:15 Urine Nitrate NEGATIVE (NEGATIVE) 04/17/18 00:15 Urine Bilirubin SMALL (NEGATIVE) H 04/17/18 00:15 Urine Urobilinogen 1.0 E.U./dL (0.2 - 1.0) 04/17/18 00:15 Ur Leukocyte Esterase NEGATIVE (NEGATIVE) 04/17/18 00:15 Urine RBC 5-10 /hpf (0-5) H 04/17/18 00:15 Urine WBC 0-2 /hpf (0-5) 04/17/18 00:15 Ur Epithelial Cells FEW /lpf (FEW) 04/17/18 00:15 Urine Bacteria NONE SEEN /hpf (NONE SEEN) 04/17/18 00:15 Valproic Acid 86.6 ug/mL (50.0-100.0) 04/16/18 16:10 Levetiracetam 38.6 04/16/18 16:10 - Physical Exam Vitals and I&O: Vital Signs Temp 96.9 F 04/20/18 07:46 Pulse 101 04/20/18 07:46 Resp 14 04/20/18 07:46 BP 134/92 04/20/18 07:46 Pulse Ox 97 04/20/18 07:46 Intake & Output 04/19/18 04/20/18 04/20/18 18:59 06:59 18:59 Intake Total 1165.833 155 Output Total 500 125 Balance 665.833 30 Weight (lbs) 70.579 kg 77.564 kg Intake: Intake, IV Amount 1165.833 155 Azithromycin 500 mg In 250 Sodium Chloride 0.9% 250 ml @ 250 mls/hr IV Q24H [facility] Rx#:[id number] D5-0.45NS w/20 mEq KCL 1, 810.833 000 ml @ 50 mls/hr IV . Q20H [facility] Rx#:[id number] Levetiracetam 500 mg In 105 105 Sodium Chloride 0.9% 100 ml @ 400 mls/hr IV Q12H [facility] Rx#:[id number] cefTRIAXone 1 gm In 50 Dextrose 5% 50 ml @ 100 mls/hr IV Q24H [facility] Rx#: [id number] Oral 0 Output: Urine 500 125 Other: # Bowel Movements 0 Weight Source Bedscale Bedscale Active Medications: Current Medications Albuterol/Ipratropium (Duoneb Neb) 3 ml HHN Q3H [facility] Stop: 06/16/18 00:00 Last Admin: 04/20/18 07:21 Dose: 3 ml Amlodipine Besylate (Norvasc) 10 mg PO DAILY [facility] Stop: 06/16/18 08:59 Last Admin: 04/20/18 08:30 Dose: Not Given Bisacodyl (Dulcolax 10 Mg Supp) 10 mg RC DAILY PRN PRN Reason: Constipation Stop: 06/15/18 21:42 Budesonide (Pulmicort) 0.5 mg HHN BIDRT [facility] Stop: 06/16/18 00:00 Last Admin: 04/20/18 07:45 Dose: 0.5 mg Cyanocobalamin (Vitamin B12) 100 mcg PO DAILY [facility] Stop: 06/16/18 08:59 Last Admin: 04/20/18 08:31 Dose: Not Given Divalproex Sodium (Depakote Er) 500 mg PO BID [facility]; Protocol Stop: 06/16/18 08:59 Last Admin: 04/20/18 08:31 Dose: Not Given Docusate Sodium (Colace) 100 mg PO DAILY PRN PRN Reason: STOOL SOFTENER Stop: 06/15/18 22:29 Enalaprilat (Vasotec) 1.25 mg IVP Q6HR PRN PRN Reason: INCREASED HEART RATE Stop: 06/17/18 17:59 Last Admin: 04/19/18 12:19 Dose: 1.25 mg Ceftriaxone Sodium 1 gm/ (Dextrose) 50 mls @ 100 mls/hr IV Q24H [facility] Stop: 06/15/18 21:29 Last Infusion: 04/19/18 22:51 Dose: Infused Potassium Chloride/Dextrose/Sod Cl (D5-0.45ns W/20 Meq Kcl) 1,000 mls @ 50 mls/ hr IV .Q20H [facility] Stop: 06/15/18 21:44 Last Admin: 04/19/18 14:46 Dose: 50 mls/hr Levetiracetam 500 mg/ Sodium (Chloride) 105 mls @ 400 mls/hr IV Q12H [facility] Stop: 06/17/18 21:59 Last Infusion: 04/20/18 00:30 Dose: Infused Azithromycin 500 mg/ Sodium (Chloride) 250 mls @ 250 mls/hr IV Q24H [facility] Stop: 06/18/18 08:59 Last Admin: 04/20/18 08:33 Dose: 250 mls/hr Levothyroxine Sodium (Synthroid) 0.05 mg PO QDAC [facility] Stop: 06/17/18 07:29 Last Admin: 04/20/18 06:39 Dose: Not Given Methylprednisolone Sodium Succinate (Solu-Medrol) 40 mg IV Q8HR [facility] Stop: 06/16/18 00:00 Last Admin: 04/20/18 05:13 Dose: 40 mg Metoprolol Tartrate (Lopressor) 25 mg PO BID [facility] Stop: 06/16/18 08:59 Last Admin: 04/20/18 08:31 Dose: Not Given Miscellaneous (Probiotic Screen) 1 ea MC PRN PRN PRN Reason: PROTOCOL Stop: 06/18/18 07:29 Morphine Sulfate (Morphine) 2 mg IVP Q6H PRN PRN Reason: MODERATE PAIN Stop: 06/17/18 13:02 Last Admin: 04/20/18 05:14 Dose: 2 mg Quetiapine Fumarate (Seroquel) 12.5 mg PO BID [facility]; Protocol Stop: 06/16/18 08:59 Last Admin: 04/20/18 08:31 Dose: Not Given Simvastatin (Zocor) 10 mg PO HS [facility]; Protocol Stop: 06/16/18 20:59 Last Admin: 04/19/18 22:09 Dose: Not Given General: Alert, No acute distress HEENT: Atraumatic, PERRLA, EOMI Neck: Supple Cardiovascular: Regular rate Lungs: Other (decreased lung sounds) Abdomen: Bowel sounds, Soft, no Tender, no Hepatomegaly, no Distended, no Rebound Extremities: no Clubbing, no Cyanosis, no Edema Assessment/Plan - Assessment Assessment: # Dysphagia, failed swallow eval # Pneumonia # Respiratory compromise, requiring BiPAP # Liver lesion Pt may need G tube for enteral feeding given she has failed swallowing eval. However, she is requiring BiPAP now, and is not stable for any endoscopic procedure while this is on. The family wants to re-assess her swallowing ability after BiPAP comes off. In terms of the liver lesion, unclear if this is a large hemangioma vs HCC vs cyst. A triple phase CT scan will be necessary, as this diagnosis is typically made radiographically. Would wait until BiPAP is off to get this done Plan: - Possible G tube once respiratory status improves and pt off BiPAP if the family consents - f/u AFP and viral hepatitis labs - suggest CT triple phase after respiratory status improves to classify the liver lesion - mgmt of pneumonia and respiratory status as per other consultants
--- NOTE | 2018-04-20 09:11 | Diagnostic Imaging Report ---
Exam: Portable chest x-ray HISTORY: Pneumonia. Findings: Portable examination of chest at 0735 hours reviewed compared to prior study the early. The study again demonstrates right basilar atelectasis with small amount of pleural thickening might represent small effusion. Blunting left costophrenic angle unchanged upper approximation. Mediastinal structures midline the heart is enlarged. Bony thorax is intact. IMPRESSION: Unchanged upper prior study day earlier.
[2018-04-20 09:38] LABS: pH 7.45 (7.35-7.45)
[2018-04-20 09:40] LABS: ALLEN TEST Y
[2018-04-20] MEDS: D5-0.45NS w/20 mEq KCL 1,000 ML IV SCH (16:42)
--- NOTE | 2018-04-20 21:52 | Progress Notes ---
DATE: 04/20/2018 PULMONARY PROGRESS NOTE PROBLEM LIST: 1. Persistent respiratory failure. 2. Altered level of consciousness. 3. History of previous CVA. 4. History of questionable early chronic pneumonitis at bases. SYMPTOMS: The patient appears to be opening her eyes on phonation and touching, but no communication could be done, still on BiPAP. FiO2 was decreased to 45%. OBJECTIVE: VITAL SIGNS: Temperature is 96.3, blood pressure 109/76, saturation in the 90s. NECK: Veins not visualized. CHEST: Shows diminished air entry with occasional rhonchi. HEART: Regular. ABDOMEN: Soft, nontender. LABORATORY DATA: The patient's ABG on 45% looks okay. Electrolytes are okay and sugar is ____. ASSESSMENT: The patient is clinically status quo, not too much change, oxygen is improved, question mental status got a little bit dry house tender. PLANS AND SUGGESTIONS: We will decrease her FiO2. We will discuss with RT, see if we can cut down the patient on BiPAP and see how she does and go from there. JOB# [id number]
--- NOTE | 2018-04-20 23:54 | Infectious Disease Prog Note ---
Infectious Disease Subjective - Review of Systems Service Date: 04/20/18 Subjective: No fever. Short of breath. On BiPAP. Infectious Disease Objective - Results Result Diagrams: 04/19/18 04:40 04/20/18 06:00 Recent Labs: Laboratory Last Values WBC 10.2 Th/cmm (4.8-10.8) 04/19/18 04:40 RBC 4.45 Mil/cmm (3.80-5.10) 04/19/18 04:40 Hgb 14.5 gm/dL (12-16) 04/19/18 04:40 Hct 44.6 % (41.0-60) 04/19/18 04:40 MCV 100.1 fl (81-100) H 04/19/18 04:40 MCH 32.6 pg (27.0-31.0) H 04/19/18 04:40 MCHC Differential 32.6 pg (28.0-36.0) 04/19/18 04:40 RDW 16.3 % (11.5-20.0) 04/19/18 04:40 Plt Count 140 Th/cmm (150-400) L 04/19/18 04:40 MPV 9.6 fl 04/19/18 04:40 Add Manual Diff YES 04/19/18 04:40 Neutrophils % 81.4 % (40.0-80.0) H 04/18/18 05:00 Band Neutrophils % 5 % (0-10) 04/19/18 04:40 Lymphocytes % 15.2 % (20.0-50.0) L 04/18/18 05:00 Monocytes % 3.2 % (2.0-10.0) 04/18/18 05:00 Eosinophils % 0.0 % (0.0-5.0) 04/18/18 05:00 Basophils % 0.2 % (0.0-2.0) 04/18/18 05:00 Neutrophils (Manual) 88 % (40-80) H 04/19/18 04:40 Lymphocytes 5 % (20-50) L 04/19/18 04:40 Monocytes 2 % (2-10) 04/19/18 04:40 PT 15.0 SECONDS (9.5-11.5) H 04/16/18 16:10 INR 1.41 (0.5-1.4) H 04/16/18 16:10 PTT (Actin FS) 23.1 SECONDS (26.0-38.0) L 04/16/18 16:10 Specimen Source ARTERIAL 04/20/18 09:25 Sample Site Left Radial 04/20/18 09:25 pH 7.45 (7.35-7.45) 04/20/18 09:25 pCO2 40.0 mmHg (35.0-45.0) 04/20/18 09:25 pO2 76.0 mmHg (80.0-100.0) L 04/20/18 09:25 HCO3 27.0 mEq/L (20.0-26.0) H 04/20/18 09:25 Base Excess 3.5 mEq/L (-3.0-3.0) H 04/20/18 09:25 O2 Saturation 96.0 % (92.0-100.0) 04/20/18 09:25 Manjeet Test Y 04/20/18 09:25 Vent Rate N/A 04/20/18 09:25 Inspired O2 45 04/20/18 09:25 Tidal Volume 300 04/20/18 09:25 PEEP N/A 04/20/18 09:25 Pressure (ins/psv/peep) N/A 04/20/18 09:25 Critical Value O.COPELAND 04/20/18 09:25 Sodium 145 mEq/L (136-145) 04/20/18 06:00 Potassium 3.9 mEq/L (3.5-5.1) 04/20/18 06:00 Chloride 110 mEq/L (98-107) H 04/20/18 06:00 Carbon Dioxide 26.3 mEq/L (21.0-31.0) 04/20/18 06:00 Anion Gap 12.6 (7.0-16.0) 04/20/18 06:00 BUN 22 mg/dL (7-25) 04/20/18 06:00 Creatinine 0.4 mg/dL (0.6-1.2) L 04/20/18 06:00 Est GFR ( Amer) > 60.0 ml/min (>90) 04/20/18 06:00 Est GFR (Non-Af Amer) > 60.0 ml/min 04/20/18 06:00 BUN/Creatinine Ratio 55.0 04/20/18 06:00 Glucose 181 mg/dL (70-105) H 04/20/18 06:00 Hemoglobin A1c % 6.1 % (4.0-6.0) H 04/19/18 04:40 Whole Bld Lactic Acid 1.93 mmol/L (0.60-1.99) 04/17/18 09:35 Calcium 8.5 mg/dL (8.6-10.3) L 04/20/18 06:00 Magnesium 2.1 mg/dL (1.9-2.7) 04/16/18 23:40 Total Bilirubin 0.5 mg/dL (0.3-1.0) 04/20/18 06:00 Direct Bilirubin 0.16 mg/dL (0.0-0.2) 04/18/18 05:00 AST 17 U/L (13-39) 04/20/18 06:00 ALT 27 U/L (7-52) 04/20/18 06:00 Alkaline Phosphatase 45 U/L (34-104) 04/20/18 06:00 Ammonia 33 umol/L (16-53) 04/20/18 06:00 Troponin I 0.05 ng/mL (0.01-0.05) 04/16/18 16:10 B-Natriuretic Peptide 24.0 pg/mL (5.0-100.0) 04/20/18 06:00 Total Protein 4.6 gm/dL (6.0-8.3) L 04/20/18 06:00 Albumin 2.5 gm/dL (3.7-5.3) L 04/20/18 06:00 Globulin 2.1 gm/dL 04/20/18 06:00 Albumin/Globulin Ratio 1.2 (1.0-1.8) 04/20/18 06:00 TSH 8.06 uIU/ml (0.34-5.60) H 04/16/18 16:10 Urine Source [place] 04/17/18 00:15 Urine Color YELLOW 04/17/18 00:15 Urine Clarity HAZY (CLEAR) 04/17/18 00:15 Urine pH 6.0 (4.6 - 8.0) 04/17/18 00:15 Ur Specific [place] 1.025 (1.005-1.030) 04/17/18 00:15 Urine Protein 100 mg/dL (NEGATIVE) H 04/17/18 00:15 Urine Glucose (UA) NEGATIVE mg/dL (NEGATIVE) 04/17/18 00:15 Urine Ketones TRACE mg/dL (NEGATIVE) 04/17/18 00:15 Urine Blood MODERATE (NEGATIVE) H 04/17/18 00:15 Urine Nitrate NEGATIVE (NEGATIVE) 04/17/18 00:15 Urine Bilirubin SMALL (NEGATIVE) H 04/17/18 00:15 Urine Urobilinogen 1.0 E.U./dL (0.2 - 1.0) 04/17/18 00:15 Ur Leukocyte Esterase NEGATIVE (NEGATIVE) 04/17/18 00:15 Urine RBC 5-10 /hpf (0-5) H 04/17/18 00:15 Urine WBC 0-2 /hpf (0-5) 04/17/18 00:15 Ur Epithelial Cells FEW /lpf (FEW) 04/17/18 00:15 Urine Bacteria NONE SEEN /hpf (NONE SEEN) 04/17/18 00:15 Valproic Acid 86.6 ug/mL (50.0-100.0) 04/16/18 16:10 Levetiracetam 38.6 04/16/18 16:10 - Physical Exam Vitals and I&O: Vital Signs Temp 96.8 F 04/20/18 20:00 Pulse 95 04/20/18 20:00 Resp 12 04/20/18 23:18 BP 138/93 04/20/18 20:00 Pulse Ox 95 04/20/18 23:18 Intake & Output 04/20/18 04/20/18 04/21/18 06:59 18:59 06:59 Intake Total 155 1105 50 Output Total 125 150 Balance 30 955 50 Weight (lbs) 77.564 kg 78.018 kg Intake: Intake, IV Amount 155 1105 50 D5-0.45NS w/20 mEq KCL 1, 1000 000 ml @ 50 mls/hr IV . Q20H [facility] Rx#:[id number] Levetiracetam 500 mg In 105 105 Sodium Chloride 0.9% 100 ml @ 400 mls/hr IV Q12H [facility] Rx#:[id number] cefTRIAXone 1 gm In 50 50 Dextrose 5% 50 ml @ 100 mls/hr IV Q24H [facility] Rx#: [id number] Oral 0 Output: Urine 125 150 Stool 0 Other: # Bowel Movements 0 Weight Source Bedscale Bedscale Active Medications: Current Medications Albuterol/Ipratropium (Duoneb Neb) 3 ml HHN Q3H [facility] Stop: 06/16/18 00:00 Last Admin: 04/20/18 23:18 Dose: 3 ml Amlodipine Besylate (Norvasc) 10 mg PO DAILY [facility] Stop: 06/16/18 08:59 Last Admin: 04/20/18 08:30 Dose: Not Given Bisacodyl (Dulcolax 10 Mg Supp) 10 mg RC DAILY PRN PRN Reason: Constipation Stop: 06/15/18 21:42 Budesonide (Pulmicort) 0.5 mg HHN BIDRT [facility] Stop: 06/16/18 00:00 Last Admin: 04/20/18 18:50 Dose: 0.5 mg Cyanocobalamin (Vitamin B12) 100 mcg PO DAILY [facility] Stop: 06/16/18 08:59 Last Admin: 04/20/18 08:31 Dose: Not Given Divalproex Sodium (Depakote Er) 500 mg PO BID [facility]; Protocol Stop: 06/16/18 08:59 Last Admin: 04/20/18 16:41 Dose: Not Given Docusate Sodium (Colace) 100 mg PO DAILY PRN PRN Reason: STOOL SOFTENER Stop: 06/15/18 22:29 Enalaprilat (Vasotec) 1.25 mg IVP Q6HR PRN PRN Reason: INCREASED HEART RATE Stop: 06/17/18 17:59 Last Admin: 04/19/18 12:19 Dose: 1.25 mg Furosemide (Lasix) 20 mg IVP DAILY [facility] Stop: 06/20/18 08:59 Ceftriaxone Sodium 1 gm/ (Dextrose) 50 mls @ 100 mls/hr IV Q24H [facility] Stop: 06/15/18 21:29 Last Infusion: 04/20/18 23:38 Dose: Infused Potassium Chloride/Dextrose/Sod Cl (D5-0.45ns W/20 Meq Kcl) 1,000 mls @ 50 mls/ hr IV .Q20H [facility] Stop: 06/15/18 21:44 Last Admin: 04/20/18 16:42 Dose: 50 mls/hr Levetiracetam 500 mg/ Sodium (Chloride) 105 mls @ 400 mls/hr IV Q12H [facility] Stop: 06/17/18 21:59 Last Admin: 04/20/18 23:08 Dose: 400 mls/hr Azithromycin 500 mg/ Sodium (Chloride) 250 mls @ 250 mls/hr IV Q24H [facility] Stop: 06/18/18 08:59 Last Admin: 04/20/18 08:33 Dose: 250 mls/hr Levothyroxine Sodium (Synthroid) 0.05 mg PO QDAC [facility] Stop: 06/17/18 07:29 Last Admin: 04/20/18 06:39 Dose: Not Given Methylprednisolone Sodium Succinate (Solu-Medrol) 40 mg IV Q8HR [facility] Stop: 06/16/18 00:00 Last Admin: 04/20/18 20:40 Dose: 40 mg Metoprolol Tartrate (Lopressor) 25 mg PO BID [facility] Stop: 06/16/18 08:59 Last Admin: 04/20/18 16:41 Dose: Not Given Miscellaneous (Probiotic Screen) 1 ea MC PRN PRN PRN Reason: PROTOCOL Stop: 06/18/18 07:29 Morphine Sulfate (Morphine) 2 mg IVP Q6H PRN PRN Reason: MODERATE PAIN Stop: 06/17/18 13:02 Last Admin: 04/20/18 05:14 Dose: 2 mg Quetiapine Fumarate (Seroquel) 12.5 mg PO BID [facility]; Protocol Stop: 06/16/18 08:59 Last Admin: 04/20/18 16:41 Dose: Not Given Simvastatin (Zocor) 10 mg PO HS [facility]; Protocol Stop: 06/16/18 20:59 Last Admin: 04/20/18 23:06 Dose: Not Given Infectious Disease Assmt/Plan - Assessment Assessment: 1. Lactic acidosis. Improved 2. Right lower lobe pneumonia. 3. Dementia. 4. Cerebrovascular accident. 5. Hypertension. - Plan Plan: Continue Rocephin and Zithromax. Check chest x-ray in the morning. Nutritional Asmnt/Malnutr-PDOC - Dietary Evaluation Malnutrition Findings (Please click <Entered> for more info): Nutritional Asmnt/Malnutrition Start: 04/18/18 17: 58 Text: Status: Complete Freq: Protocol: Document 04/18/18 17:58 [facility] (Rec: 04/18/18 18:07 [facility] [id number]) Nutritional Asmnt/Malnutrition Patient General Information Nutritional Screening High Risk Consult Diagnosis right lower lob NPA, bilateral pleural effus Pertinent Medical Hx/Surgical Hx CAD, HTN, hyperlipidemia, CVA, seizure, aphasia, GERD, anxiety, OA, healues, weakness , muscle atrophy Subjective Information Consult received for pt not tolerating diet. Per RN, pt failed swallow eval. Wait for family desicion about PEG. Current Diet Order/ Nutrition Support NPO Pertinent Medications vit B12, colace, synthroid, D5 -0.45ns w 20meq kcal, seroquel , Pertinent Labs 04/18 Na 146, Cl 108, Cr 0.4, glucose 179, Ca 8.1 Nutritional Hx/Data Height 1.57 m Height (Calculated Centimeters) 157.5 Current Weight (lbs) 56.699 kg Weight (Calculated Kilograms) 56.7 Weight (Calculated Grams) 41565.0 [place] Body Weight 110 Body Mass Index (BMI) 22.8 Weight Status Approriate GI Symptoms GI Symptoms None Last BM none Difficult in: Chewing Swallowing Skin Integrity/Comment: rash multiple sites Current %PO Negligible < 25% Estimated Nutritional Goals BEE in Kcals: Using Current wt Calories/Kcals/Kg 25-30 Kcals Calculated 4506-4328 Protein: Using Current wt Protein g/k Protein Calculated 57 Fluid: ml 1425-1710ml (1ml/kcal) Nutritional Problem 1. Problem Problem chewing/swallowing difficulty Etiology ?lethargy, ?cognition Signs/Symptoms: pt failed swallow eval Intervention/Recommendation Comments 1. Monitor NPO status. Consider alternative nutrition route. Wait for family decision. 2. Monitor PO intake, wt, labs and skin integrity 3. F/U as high risk in 2-3 days, 04/20-04/21 Expected Outcomes/Goals Expected Outcomes/Goals 1. PO to meet at least 75% of nutritional needs. 2. Wt stability, skin to remain intact, labs to approach WNL.
[2018-04-21] MEDS: Albuterol/Ipratropium Neb 3 ML AERS HHN SCH ×7 (02:15→20:54)
[2018-04-21] MEDS: methylPREDNISolone SS 40 mg Vial IV SCH ×3 (05:00→22:26)
[2018-04-21 05:59] LABS: HEMATOCRIT 41.2 % (41.0-60); HEMOGLOBIN 13.9 gm/dL (12-16); MEAN CELL VOLUME 100.4 fl (81-100); MEAN CORPUSCULAR HEMOGLOBIN 33.9 pg (27.0-31.0); MEAN CORPUSCULAR HGB CONC 33.7 pg (28.0-36.0); MEAN PLATELET VOLUME 8.7 fl; PLATELET COUNT 105 Th/cmm (150-400); RED CELL DISTRIBUTION WIDTH 16.3 % (11.5-20.0); WHITE BLOOD COUNT 6.7 Th/cmm (4.8-10.8)
[2018-04-21 06:24] LABS: ANION GAP 11.8 (7.0-16.0); BUN - UREA NITROGEN 21 mg/dL (7-25); CALCIUM SERUM 8.3 mg/dL (8.6-10.3); CARBON DIOXIDE 24.5 mEq/L (21.0-31.0); CHLORIDE 111 mEq/L (98-107); CREATININE - SERUM 0.3 mg/dL (0.6-1.2); GFR AFRICAN-AMERICAN > 60.0 ml/min (>90); GFR NON AFRICAN-AMERICAN > 60.0 ml/min; GLUCOSE 173 mg/dL (70-105); POTASSIUM SERUM 4.3 mEq/L (3.5-5.1); SODIUM SERUM 143 mEq/L (136-145)
[2018-04-21 06:42] LABS: BAND NEUTROPHILE 1 % (0-10); LYMPHOCYTE 6 % (20-50); MONOCYTE 4 % (2-10); NEUTROPHILS 89 % (40-80); PLATELET ESTIMATE DECREASED PLATELETS (NORMAL)
[2018-04-21] MEDS: Budesonide 0.5 Mg/2 mL Ud HHN SCH ×2 (07:15→18:45)
[2018-04-21] MEDS: Levothyroxine 0.05 Mg Tab PO SCH (07:33)
--- NOTE | 2018-04-21 07:44 | General Progress Note ---
Subjective - Review of Systems Service Date: 04/21/18 Subjective: Patient was seen and examined. persistent respiratory failure on BiPaP. Patient opening her eyes. Family requested to repeat swallow evaluation. Poor PO intake. will continue IV fluids, IV antibiotics. Objective - Results Result Diagrams: 04/21/18 05:05 04/21/18 05:05 Recent Labs: Laboratory Last Values WBC 6.7 Th/cmm (4.8-10.8) 04/21/18 05:05 RBC 4.10 Mil/cmm (3.80-5.10) 04/21/18 05:05 Hgb 13.9 gm/dL (12-16) 04/21/18 05:05 Hct 41.2 % (41.0-60) 04/21/18 05:05 MCV 100.4 fl (81-100) H 04/21/18 05:05 MCH 33.9 pg (27.0-31.0) H 04/21/18 05:05 MCHC Differential 33.7 pg (28.0-36.0) 04/21/18 05:05 RDW 16.3 % (11.5-20.0) 04/21/18 05:05 Plt Count 105 Th/cmm (150-400) L 04/21/18 05:05 MPV 8.7 fl 04/21/18 05:05 Add Manual Diff YES 04/21/18 05:05 Neutrophils % 81.4 % (40.0-80.0) H 04/18/18 05:00 Band Neutrophils % 1 % (0-10) 04/21/18 05:05 Lymphocytes % 15.2 % (20.0-50.0) L 04/18/18 05:00 Monocytes % 3.2 % (2.0-10.0) 04/18/18 05:00 Eosinophils % 0.0 % (0.0-5.0) 04/18/18 05:00 Basophils % 0.2 % (0.0-2.0) 04/18/18 05:00 Neutrophils (Manual) 89 % (40-80) H 04/21/18 05:05 Lymphocytes 6 % (20-50) L 04/21/18 05:05 Monocytes 4 % (2-10) 04/21/18 05:05 Platelet Estimate DECREASED PLATELETS (NORMAL) 04/21/18 05:05 PT 15.0 SECONDS (9.5-11.5) H 04/16/18 16:10 INR 1.41 (0.5-1.4) H 04/16/18 16:10 PTT (Actin FS) 23.1 SECONDS (26.0-38.0) L 04/16/18 16:10 Specimen Source ARTERIAL 04/20/18 09:25 Sample Site Left Radial 04/20/18 09:25 pH 7.45 (7.35-7.45) 04/20/18 09:25 pCO2 40.0 mmHg (35.0-45.0) 04/20/18 09:25 pO2 76.0 mmHg (80.0-100.0) L 04/20/18 09:25 HCO3 27.0 mEq/L (20.0-26.0) H 04/20/18 09:25 Base Excess 3.5 mEq/L (-3.0-3.0) H 04/20/18 09:25 O2 Saturation 96.0 % (92.0-100.0) 04/20/18 09:25 Manjeet Test Y 04/20/18 09:25 Vent Rate N/A 04/20/18 09:25 Inspired O2 45 04/20/18 09:25 Tidal Volume 300 04/20/18 09:25 PEEP N/A 04/20/18 09:25 Pressure (ins/psv/peep) N/A 04/20/18 09:25 Critical Value O.COPELAND 04/20/18 09:25 Sodium 143 mEq/L (136-145) 04/21/18 05:05 Potassium 4.3 mEq/L (3.5-5.1) 04/21/18 05:05 Chloride 111 mEq/L (98-107) H 04/21/18 05:05 Carbon Dioxide 24.5 mEq/L (21.0-31.0) 04/21/18 05:05 Anion Gap 11.8 (7.0-16.0) 04/21/18 05:05 BUN 21 mg/dL (7-25) 04/21/18 05:05 Creatinine 0.3 mg/dL (0.6-1.2) L 04/21/18 05:05 Est GFR ( Amer) > 60.0 ml/min (>90) 04/21/18 05:05 Est GFR (Non-Af Amer) > 60.0 ml/min 04/21/18 05:05 BUN/Creatinine Ratio 70.0 04/21/18 05:05 Glucose 173 mg/dL (70-105) H 04/21/18 05:05 Hemoglobin A1c % 6.1 % (4.0-6.0) H 04/19/18 04:40 Whole Bld Lactic Acid 1.93 mmol/L (0.60-1.99) 04/17/18 09:35 Calcium 8.3 mg/dL (8.6-10.3) L 04/21/18 05:05 Magnesium 2.1 mg/dL (1.9-2.7) 04/16/18 23:40 Total Bilirubin 0.5 mg/dL (0.3-1.0) 04/20/18 06:00 Direct Bilirubin 0.16 mg/dL (0.0-0.2) 04/18/18 05:00 AST 17 U/L (13-39) 04/20/18 06:00 ALT 27 U/L (7-52) 04/20/18 06:00 Alkaline Phosphatase 45 U/L (34-104) 04/20/18 06:00 Ammonia 33 umol/L (16-53) 04/20/18 06:00 Troponin I 0.05 ng/mL (0.01-0.05) 04/16/18 16:10 B-Natriuretic Peptide 24.0 pg/mL (5.0-100.0) 04/20/18 06:00 Total Protein 4.6 gm/dL (6.0-8.3) L 04/20/18 06:00 Albumin 2.5 gm/dL (3.7-5.3) L 04/20/18 06:00 Globulin 2.1 gm/dL 04/20/18 06:00 Albumin/Globulin Ratio 1.2 (1.0-1.8) 04/20/18 06:00 TSH 8.06 uIU/ml (0.34-5.60) H 04/16/18 16:10 Urine Source [place] 04/17/18 00:15 Urine Color YELLOW 04/17/18 00:15 Urine Clarity HAZY (CLEAR) 04/17/18 00:15 Urine pH 6.0 (4.6 - 8.0) 04/17/18 00:15 Ur Specific [place] 1.025 (1.005-1.030) 04/17/18 00:15 Urine Protein 100 mg/dL (NEGATIVE) H 04/17/18 00:15 Urine Glucose (UA) NEGATIVE mg/dL (NEGATIVE) 04/17/18 00:15 Urine Ketones TRACE mg/dL (NEGATIVE) 04/17/18 00:15 Urine Blood MODERATE (NEGATIVE) H 04/17/18 00:15 Urine Nitrate NEGATIVE (NEGATIVE) 04/17/18 00:15 Urine Bilirubin SMALL (NEGATIVE) H 04/17/18 00:15 Urine Urobilinogen 1.0 E.U./dL (0.2 - 1.0) 04/17/18 00:15 Ur Leukocyte Esterase NEGATIVE (NEGATIVE) 04/17/18 00:15 Urine RBC 5-10 /hpf (0-5) H 04/17/18 00:15 Urine WBC 0-2 /hpf (0-5) 04/17/18 00:15 Ur Epithelial Cells FEW /lpf (FEW) 04/17/18 00:15 Urine Bacteria NONE SEEN /hpf (NONE SEEN) 04/17/18 00:15 Valproic Acid 86.6 ug/mL (50.0-100.0) 04/16/18 16:10 Levetiracetam 38.6 04/16/18 16:10 - Physical Exam Vitals and I&O: Vital Signs Temp 96.4 F 04/21/18 04:00 Pulse 90 04/21/18 04:00 Resp 15 04/21/18 07:15 BP 140/92 04/21/18 04:00 Pulse Ox 97 04/21/18 07:15 Intake & Output 04/20/18 04/21/18 04/21/18 18:59 06:59 18:59 Intake Total 1105 155 Output Total 150 100 Balance 955 55 Weight (lbs) 78.018 kg 76.657 kg Intake: Intake, IV Amount 1105 155 D5-0.45NS w/20 mEq KCL 1, 1000 000 ml @ 50 mls/hr IV . Q20H [facility] Rx#:[id number] Levetiracetam 500 mg In 105 105 Sodium Chloride 0.9% 100 ml @ 400 mls/hr IV Q12H [facility] Rx#:[id number] cefTRIAXone 1 gm In 50 Dextrose 5% 50 ml @ 100 mls/hr IV Q24H [facility] Rx#: [id number] Output: Urine 150 100 Stool 0 Other: Weight Source Bedscale Bedscale Active Medications: Current Medications Albuterol/Ipratropium (Duoneb Neb) 3 ml HHN Q3H [facility] Stop: 06/16/18 00:00 Last Admin: 04/21/18 05:18 Dose: 3 ml Amlodipine Besylate (Norvasc) 10 mg PO DAILY [facility] Stop: 06/16/18 08:59 Last Admin: 04/20/18 08:30 Dose: Not Given Bisacodyl (Dulcolax 10 Mg Supp) 10 mg RC DAILY PRN PRN Reason: Constipation Stop: 06/15/18 21:42 Budesonide (Pulmicort) 0.5 mg HHN BIDRT [facility] Stop: 06/16/18 00:00 Last Admin: 04/21/18 07:15 Dose: 0.5 mg Cyanocobalamin (Vitamin B12) 100 mcg PO DAILY [facility] Stop: 06/16/18 08:59 Last Admin: 04/20/18 08:31 Dose: Not Given Divalproex Sodium (Depakote Er) 500 mg PO BID [facility]; Protocol Stop: 06/16/18 08:59 Last Admin: 04/20/18 16:41 Dose: Not Given Docusate Sodium (Colace) 100 mg PO DAILY PRN PRN Reason: STOOL SOFTENER Stop: 06/15/18 22:29 Enalaprilat (Vasotec) 1.25 mg IVP Q6HR PRN PRN Reason: INCREASED HEART RATE Stop: 06/17/18 17:59 Last Admin: 04/19/18 12:19 Dose: 1.25 mg Furosemide (Lasix) 20 mg IVP DAILY [facility] Stop: 06/20/18 08:59 Ceftriaxone Sodium 1 gm/ (Dextrose) 50 mls @ 100 mls/hr IV Q24H [facility] Stop: 06/15/18 21:29 Last Infusion: 04/20/18 23:38 Dose: Infused Potassium Chloride/Dextrose/Sod Cl (D5-0.45ns W/20 Meq Kcl) 1,000 mls @ 50 mls/ hr IV .Q20H [facility] Stop: 06/15/18 21:44 Last Admin: 04/20/18 16:42 Dose: 50 mls/hr Levetiracetam 500 mg/ Sodium (Chloride) 105 mls @ 400 mls/hr IV Q12H [facility] Stop: 06/17/18 21:59 Last Infusion: 04/21/18 03:28 Dose: Infused Azithromycin 500 mg/ Sodium (Chloride) 250 mls @ 250 mls/hr IV Q24H [facility] Stop: 06/18/18 08:59 Last Admin: 04/20/18 08:33 Dose: 250 mls/hr Levothyroxine Sodium (Synthroid) 0.05 mg PO QDAC [facility] Stop: 06/17/18 07:29 Last Admin: 04/21/18 07:33 Dose: Not Given Methylprednisolone Sodium Succinate (Solu-Medrol) 40 mg IV Q8HR [facility] Stop: 06/16/18 00:00 Last Admin: 04/20/18 20:40 Dose: 40 mg Metoprolol Tartrate (Lopressor) 25 mg PO BID [facility] Stop: 06/16/18 08:59 Last Admin: 04/20/18 16:41 Dose: Not Given Miscellaneous (Probiotic Screen) 1 ea MC PRN PRN PRN Reason: PROTOCOL Stop: 06/18/18 07:29 Morphine Sulfate (Morphine) 2 mg IVP Q6H PRN PRN Reason: MODERATE PAIN Stop: 06/17/18 13:02 Last Admin: 04/20/18 05:14 Dose: 2 mg Quetiapine Fumarate (Seroquel) 12.5 mg PO BID [facility]; Protocol Stop: 06/16/18 08:59 Last Admin: 04/20/18 16:41 Dose: Not Given Simvastatin (Zocor) 10 mg PO HS [facility]; Protocol Stop: 06/16/18 20:59 Last Admin: 04/20/18 23:06 Dose: Not Given General: Alert, No acute distress HEENT: Atraumatic, PERRLA, EOMI Neck: Supple Cardiovascular: Regular rate Lungs: Other (decreased lung sounds) Abdomen: Bowel sounds, Soft, no Tender, no Hepatomegaly, no Distended, no Rebound Extremities: no Clubbing, no Cyanosis, no Edema Neurological: Normal gait, Normal speech Assessment/Plan - Assessment Assessment: LLL pneumonia persistent respiratory failure cardiac arrthymmia poor oral intake abdominal mass Sepsis UTI leukocytosis Willie. pleural effusion CVA w/ hemiplegia Seizure disorder HTN Hyperlipidemia CAD PUD GERD OA - Plan Plan: pulmonary consult w/ Dr. Gato Jiménez IV Rocephin and IV Azithromycin for repeat swallow evaluation repeat CBC, CMP breathing treatments K+ supplements ID consult Cardiology consult chest xray today Nutritional Asmnt/Malnutr-PDOC - Dietary Evaluation Malnutrition Findings (Please click <Entered> for more info): Nutritional Asmnt/Malnutrition Start: 04/18/18 17: 58 Text: Status: Complete Freq: Protocol: Document 04/18/18 17:58 [facility] (Rec: 04/18/18 18:07 [facility] [email or web address]) Nutritional Asmnt/Malnutrition Patient General Information Nutritional Screening High Risk Consult Diagnosis right lower lob NPA, bilateral pleural effus Pertinent Medical Hx/Surgical Hx CAD, HTN, hyperlipidemia, CVA, seizure, aphasia, GERD, anxiety, OA, healues, weakness , muscle atrophy Subjective Information Consult received for pt not tolerating diet. Per RN, pt failed swallow eval. Wait for family desicion about PEG. Current Diet Order/ Nutrition Support NPO Pertinent Medications vit B12, colace, synthroid, D5 -0.45ns w 20meq kcal, seroquel , Pertinent Labs 04/18 Na 146, Cl 108, Cr 0.4, glucose 179, Ca 8.1 Nutritional Hx/Data Height 1.57 m Height (Calculated Centimeters) 157.5 Current Weight (lbs) 56.699 kg Weight (Calculated Kilograms) 56.7 Weight (Calculated Grams) 85961.0 [place] Body Weight 110 Body Mass Index (BMI) 22.8 Weight Status Approriate GI Symptoms GI Symptoms None Last BM none Difficult in: Chewing Swallowing Skin Integrity/Comment: rash multiple sites Current %PO Negligible < 25% Estimated Nutritional Goals BEE in Kcals: Using Current wt Calories/Kcals/Kg 25-30 Kcals Calculated 1748-0033 Protein: Using Current wt Protein g/k Protein Calculated 57 Fluid: ml 1425-1710ml (1ml/kcal) Nutritional Problem 1. Problem Problem chewing/swallowing difficulty Etiology ?lethargy, ?cognition Signs/Symptoms: pt failed swallow eval Intervention/Recommendation Comments 1. Monitor NPO status. Consider alternative nutrition route. Wait for family decision. 2. Monitor PO intake, wt, labs and skin integrity 3. F/U as high risk in 2-3 days, 04/20-04/21 Expected Outcomes/Goals Expected Outcomes/Goals 1. PO to meet at least 75% of nutritional needs. 2. Wt stability, skin to remain intact, labs to approach WNL.
[2018-04-21] MEDS: D5-0.45NS 1,000 ML IV SCH (08:06)
[2018-04-21] MEDS: Multivitamin w/ Minerals Tab PO SCH (08:17)
--- NOTE | 2018-04-21 08:20 | GI Progress Note ---
Subjective - Review of Systems Service Date: 04/21/18 Subjective: Pt on BiPAP, failed repeat swallow eval Objective - Results Result Diagrams: 04/21/18 05:05 04/21/18 05:05 Recent Labs: Laboratory Last Values WBC 6.7 Th/cmm (4.8-10.8) 04/21/18 05:05 RBC 4.10 Mil/cmm (3.80-5.10) 04/21/18 05:05 Hgb 13.9 gm/dL (12-16) 04/21/18 05:05 Hct 41.2 % (41.0-60) 04/21/18 05:05 MCV 100.4 fl (81-100) H 04/21/18 05:05 MCH 33.9 pg (27.0-31.0) H 04/21/18 05:05 MCHC Differential 33.7 pg (28.0-36.0) 04/21/18 05:05 RDW 16.3 % (11.5-20.0) 04/21/18 05:05 Plt Count 105 Th/cmm (150-400) L 04/21/18 05:05 MPV 8.7 fl 04/21/18 05:05 Add Manual Diff YES 04/21/18 05:05 Neutrophils % 81.4 % (40.0-80.0) H 04/18/18 05:00 Band Neutrophils % 1 % (0-10) 04/21/18 05:05 Lymphocytes % 15.2 % (20.0-50.0) L 04/18/18 05:00 Monocytes % 3.2 % (2.0-10.0) 04/18/18 05:00 Eosinophils % 0.0 % (0.0-5.0) 04/18/18 05:00 Basophils % 0.2 % (0.0-2.0) 04/18/18 05:00 Neutrophils (Manual) 89 % (40-80) H 04/21/18 05:05 Lymphocytes 6 % (20-50) L 04/21/18 05:05 Monocytes 4 % (2-10) 04/21/18 05:05 Platelet Estimate DECREASED PLATELETS (NORMAL) 04/21/18 05:05 PT 15.0 SECONDS (9.5-11.5) H 04/16/18 16:10 INR 1.41 (0.5-1.4) H 04/16/18 16:10 PTT (Actin FS) 23.1 SECONDS (26.0-38.0) L 04/16/18 16:10 Specimen Source ARTERIAL 04/20/18 09:25 Sample Site Left Radial 04/20/18 09:25 pH 7.45 (7.35-7.45) 04/20/18 09:25 pCO2 40.0 mmHg (35.0-45.0) 04/20/18 09:25 pO2 76.0 mmHg (80.0-100.0) L 04/20/18 09:25 HCO3 27.0 mEq/L (20.0-26.0) H 04/20/18 09:25 Base Excess 3.5 mEq/L (-3.0-3.0) H 04/20/18 09:25 O2 Saturation 96.0 % (92.0-100.0) 04/20/18 09:25 Manjeet Test Y 04/20/18 09:25 Vent Rate N/A 04/20/18 09:25 Inspired O2 45 04/20/18 09:25 Tidal Volume 300 04/20/18 09:25 PEEP N/A 04/20/18 09:25 Pressure (ins/psv/peep) N/A 04/20/18 09:25 Critical Value O.COPELAND 04/20/18 09:25 Sodium 143 mEq/L (136-145) 04/21/18 05:05 Potassium 4.3 mEq/L (3.5-5.1) 04/21/18 05:05 Chloride 111 mEq/L (98-107) H 04/21/18 05:05 Carbon Dioxide 24.5 mEq/L (21.0-31.0) 04/21/18 05:05 Anion Gap 11.8 (7.0-16.0) 04/21/18 05:05 BUN 21 mg/dL (7-25) 04/21/18 05:05 Creatinine 0.3 mg/dL (0.6-1.2) L 04/21/18 05:05 Est GFR ( Amer) > 60.0 ml/min (>90) 04/21/18 05:05 Est GFR (Non-Af Amer) > 60.0 ml/min 04/21/18 05:05 BUN/Creatinine Ratio 70.0 04/21/18 05:05 Glucose 173 mg/dL (70-105) H 04/21/18 05:05 Hemoglobin A1c % 6.1 % (4.0-6.0) H 04/19/18 04:40 Whole Bld Lactic Acid 1.93 mmol/L (0.60-1.99) 04/17/18 09:35 Calcium 8.3 mg/dL (8.6-10.3) L 04/21/18 05:05 Magnesium 2.1 mg/dL (1.9-2.7) 04/16/18 23:40 Total Bilirubin 0.5 mg/dL (0.3-1.0) 04/20/18 06:00 Direct Bilirubin 0.16 mg/dL (0.0-0.2) 04/18/18 05:00 AST 17 U/L (13-39) 04/20/18 06:00 ALT 27 U/L (7-52) 04/20/18 06:00 Alkaline Phosphatase 45 U/L (34-104) 04/20/18 06:00 Ammonia 33 umol/L (16-53) 04/20/18 06:00 Troponin I 0.05 ng/mL (0.01-0.05) 04/16/18 16:10 B-Natriuretic Peptide 24.0 pg/mL (5.0-100.0) 04/20/18 06:00 Total Protein 4.6 gm/dL (6.0-8.3) L 04/20/18 06:00 Albumin 2.5 gm/dL (3.7-5.3) L 04/20/18 06:00 Globulin 2.1 gm/dL 04/20/18 06:00 Albumin/Globulin Ratio 1.2 (1.0-1.8) 04/20/18 06:00 TSH 8.06 uIU/ml (0.34-5.60) H 04/16/18 16:10 Urine Source [place] 04/17/18 00:15 Urine Color YELLOW 04/17/18 00:15 Urine Clarity HAZY (CLEAR) 04/17/18 00:15 Urine pH 6.0 (4.6 - 8.0) 04/17/18 00:15 Ur Specific [place] 1.025 (1.005-1.030) 04/17/18 00:15 Urine Protein 100 mg/dL (NEGATIVE) H 04/17/18 00:15 Urine Glucose (UA) NEGATIVE mg/dL (NEGATIVE) 04/17/18 00:15 Urine Ketones TRACE mg/dL (NEGATIVE) 04/17/18 00:15 Urine Blood MODERATE (NEGATIVE) H 04/17/18 00:15 Urine Nitrate NEGATIVE (NEGATIVE) 04/17/18 00:15 Urine Bilirubin SMALL (NEGATIVE) H 04/17/18 00:15 Urine Urobilinogen 1.0 E.U./dL (0.2 - 1.0) 04/17/18 00:15 Ur Leukocyte Esterase NEGATIVE (NEGATIVE) 04/17/18 00:15 Urine RBC 5-10 /hpf (0-5) H 04/17/18 00:15 Urine WBC 0-2 /hpf (0-5) 04/17/18 00:15 Ur Epithelial Cells FEW /lpf (FEW) 04/17/18 00:15 Urine Bacteria NONE SEEN /hpf (NONE SEEN) 04/17/18 00:15 Valproic Acid 86.6 ug/mL (50.0-100.0) 04/16/18 16:10 Levetiracetam 38.6 04/16/18 16:10 - Physical Exam Vitals and I&O: Vital Signs Temp 96.4 F 04/21/18 07:58 Pulse 89 04/21/18 07:58 Resp 21 04/21/18 07:58 BP 153/102 04/21/18 07:58 Pulse Ox 97 04/21/18 07:58 Intake & Output 04/20/18 04/21/18 04/21/18 18:59 06:59 18:59 Intake Total 1105 155 Output Total 150 100 Balance 955 55 Weight (lbs) 78.018 kg 76.657 kg Intake: Intake, IV Amount 1105 155 D5-0.45NS w/20 mEq KCL 1, 1000 000 ml @ 50 mls/hr IV . Q20H [facility] Rx#:[id number] Levetiracetam 500 mg In 105 105 Sodium Chloride 0.9% 100 ml @ 400 mls/hr IV Q12H [facility] Rx#:[id number] cefTRIAXone 1 gm In 50 Dextrose 5% 50 ml @ 100 mls/hr IV Q24H [facility] Rx#: [id number] Output: Urine 150 100 Stool 0 Other: Weight Source Bedscale Bedscale Active Medications: Current Medications Albuterol/Ipratropium (Duoneb Neb) 3 ml HHN Q3H [facility] Stop: 06/16/18 00:00 Last Admin: 04/21/18 05:18 Dose: 3 ml Amlodipine Besylate (Norvasc) 10 mg PO DAILY [facility] Stop: 06/16/18 08:59 Last Admin: 04/20/18 08:30 Dose: Not Given Bisacodyl (Dulcolax 10 Mg Supp) 10 mg RC DAILY PRN PRN Reason: Constipation Stop: 06/15/18 21:42 Budesonide (Pulmicort) 0.5 mg HHN BIDRT [facility] Stop: 06/16/18 00:00 Last Admin: 04/21/18 07:15 Dose: 0.5 mg Cyanocobalamin (Vitamin B12) 100 mcg PO DAILY [facility] Stop: 06/16/18 08:59 Last Admin: 04/20/18 08:31 Dose: Not Given Divalproex Sodium (Depakote Er) 500 mg PO BID [facility]; Protocol Stop: 06/16/18 08:59 Last Admin: 04/20/18 16:41 Dose: Not Given Docusate Sodium (Colace) 100 mg PO DAILY PRN PRN Reason: STOOL SOFTENER Stop: 06/15/18 22:29 Enalaprilat (Vasotec) 1.25 mg IVP Q6HR PRN PRN Reason: INCREASED HEART RATE Stop: 06/17/18 17:59 Last Admin: 04/19/18 12:19 Dose: 1.25 mg Furosemide (Lasix) 20 mg IVP DAILY [facility] Stop: 06/20/18 08:59 Ceftriaxone Sodium 1 gm/ (Dextrose) 50 mls @ 100 mls/hr IV Q24H [facility] Stop: 06/15/18 21:29 Last Infusion: 04/20/18 23:38 Dose: Infused Levetiracetam 500 mg/ Sodium (Chloride) 105 mls @ 400 mls/hr IV Q12H [facility] Stop: 06/17/18 21:59 Last Infusion: 04/21/18 03:28 Dose: Infused Azithromycin 500 mg/ Sodium (Chloride) 250 mls @ 250 mls/hr IV Q24H [facility] Stop: 06/18/18 08:59 Last Admin: 04/20/18 08:33 Dose: 250 mls/hr Dextrose/Sodium Chloride (D5-0.45ns) 1,000 mls @ 50 mls/hr IV .Q20H [facility] Stop: 06/20/18 07:44 Last Admin: 04/21/18 08:06 Dose: 50 mls/hr Levothyroxine Sodium (Synthroid) 0.05 mg PO QDAC [facility] Stop: 06/17/18 07:29 Last Admin: 04/21/18 07:33 Dose: Not Given Methylprednisolone Sodium Succinate (Solu-Medrol) 40 mg IV Q8HR [facility] Stop: 06/16/18 00:00 Last Admin: 04/21/18 05:00 Dose: 40 mg Metoprolol Tartrate (Lopressor) 25 mg PO BID [facility] Stop: 06/16/18 08:59 Last Admin: 04/20/18 16:41 Dose: Not Given Miscellaneous (Probiotic Screen) 1 ea MC PRN PRN PRN Reason: PROTOCOL Stop: 06/18/18 07:29 Morphine Sulfate (Morphine) 2 mg IVP Q6H PRN PRN Reason: MODERATE PAIN Stop: 06/17/18 13:02 Last Admin: 04/20/18 05:14 Dose: 2 mg Quetiapine Fumarate (Seroquel) 12.5 mg PO BID [facility]; Protocol Stop: 06/16/18 08:59 Last Admin: 04/20/18 16:41 Dose: Not Given Simvastatin (Zocor) 10 mg PO HS [facility]; Protocol Stop: 06/16/18 20:59 Last Admin: 04/20/18 23:06 Dose: Not Given General: Alert, No acute distress HEENT: Atraumatic Neck: Supple Cardiovascular: Regular rate Lungs: Other (decreased lung sounds) Abdomen: Bowel sounds, Soft, no Tender, no Hepatomegaly, no Distended, no Rebound, no Guarding Extremities: no Clubbing, no Cyanosis, no Edema Neurological: Normal gait, Normal speech Assessment/Plan - Assessment Assessment: # Dysphagia, failed swallow eval # Pneumonia # Respiratory compromise, requiring BiPAP # Liver lesion Pt likely will need G tube for enteral feeding given she has failed swallowing eval. However, she is requiring BiPAP now, and is not stable for any endoscopic procedure while this is on. She has failed another swallow eval on 04/21, although pt still with respiratory compromise In terms of the liver lesion, unclear if this is a large hemangioma vs HCC vs cyst. A triple phase CT scan will be necessary, as this diagnosis is typically made radiographically. Would wait until BiPAP is off to get this done Plan: - Possible G tube once respiratory status improves and pt off BiPAP if the family consents - f/u AFP and viral hepatitis labs, pending - suggest CT triple phase after respiratory status improves to classify the liver lesion - mgmt of pneumonia and respiratory status as per other consultants
[2018-04-21 09:25] LABS: ALLEN TEST YES
[2018-04-21] MEDS: Azithromycin 500 MG in Sodium Chloride 0.9% 250 ML IV SCH (09:45)
[2018-04-21 11:11] LABS: AFP TUMOR MARKER 7.5 ng/mL (0.0-8.3); HEP A AB IGM Negative (Negative); HEP B CORE IGM Negative (Negative); HEP B SURFACE AG QL Negative (Negative); HEP C ANTIBODY <0.1 s/co ratio (0.0-0.9)
--- NOTE | 2018-04-21 16:58 | Cardiology ---
04/20/2018 PATIENT OF: Dr. Chandler. M-MODE ECHOCARDIOGRAM: Mitral valve, anterior leaflet of mitral valve shows normal excursion, EF velocity. Posterior leaflet of the mitral valve shows normal excursion. Left ventricular posterior wall shows increased thickness, normal excursion. Interventricular septum shows increased thickness, normal excursion, hypertrophy of the left ventricle, ejection fraction 64%. Left atrium normal. Aortic root shows normal dimension, normal excursion of aortic leaflets. CONCLUSION: Hypertrophy of the left ventricle, ejection fraction 64%. Doppler study shows mild mitral regurgitation, mild tricuspid regurgitation. CONCLUSION: Mild mitral regurgitation, mild tricuspid regurgitation, ejection fraction 64%. Doppler study shows right ventricular systolic pressure 30 mmHg. CONCLUSION: Mild mitral regurgitation, mild tricuspid regurgitation, ejection fraction 70%, hypertrophy of the left ventricle. [facility]# [id number]
--- NOTE | 2018-04-21 22:06 | Progress Notes ---
DATE: 04/21/2018 PULMONARY PROGRESS NOTE PROBLEM LIST: 1. Persistent respiratory failure. 2. Altered level of consciousness, slightly better. SYMPTOMS: The patient opens her eyes to verbal stimulation, but otherwise no specific ____ as communication could be done. OBJECTIVE: VITAL SIGNS: Temperature 99, respirations in teens, oxygen saturation is 97% on 40% of oxygen. NECK: Veins not visualized. CHEST: Shows diminished air entry with occasional rhonchi. HEART: Regular. ABDOMEN: Soft, nontender. LABORATORY DATA: White count is 6.9. ABG shows mixed alkalosis with pO2 of 89 on 40% of BiPAP. ASSESSMENT: The patient finally, blood gases escobar, turning around. PLANS AND SUGGESTIONS: We will try the patient off the BiPAP with nasal O2 daytime and see how she does on nocturnal BiPAP and go from there. JOB# [id number]
[2018-04-22] MEDS: Albuterol/Ipratropium Neb 3 ML AERS HHN SCH ×9 (00:43→20:48)
[2018-04-22] MEDS: methylPREDNISolone SS 40 mg Vial IV SCH ×3 (04:24→21:25)
[2018-04-22] MEDS: Budesonide 0.5 Mg/2 mL Ud HHN SCH ×2 (06:00→19:01)
[2018-04-22] MEDS: D5-0.45NS 1,000 ML IV SCH (06:09)
[2018-04-22 06:15] LABS: ALB/GLOB RATIO 1.3 (1.0-1.8); ALBUMIN 2.3 gm/dL (3.7-5.3); ALKALINE PHOSPHATASE 46 U/L (34-104); BILIRUBIN,TOTAL 1.1 mg/dL (0.3-1.0); BUN - UREA NITROGEN 13 mg/dL (7-25); CARBON DIOXIDE 26.2 mEq/L (21.0-31.0); CHLORIDE 108 mEq/L (98-107); CREATININE - SERUM 0.2 mg/dL (0.6-1.2); GFR AFRICAN-AMERICAN > 60.0 ml/min (>90); GFR NON AFRICAN-AMERICAN > 60.0 ml/min; GLUCOSE 192 mg/dL (70-105); POTASSIUM SERUM 3.2 mEq/L (3.5-5.1); SGOT 24 U/L (13-39); SGPT/ALT 32 U/L (7-52); SODIUM SERUM 142 mEq/L (136-145); TOTAL PROTEIN,SERUM 4.1 gm/dL (6.0-8.3)
[2018-04-22 06:24] LABS: % BASOPHILS 0.1 % (0.0-2.0); % EOSINOPHILS 0.1 % (0.0-5.0); % LYMPHOCYTES 11.8 % (20.0-50.0); % MONOCYTES 2.8 % (2.0-10.0); % NEUTROPHILS 85.2 % (40.0-80.0); HEMATOCRIT 41.5 % (41.0-60); HEMOGLOBIN 14.2 gm/dL (12-16); LYMPHOCYTE ABSOLUTE 0.7 Th/cmm (1.5-3.0); MEAN CELL VOLUME 99.9 fl (81-100); MEAN CORPUSCULAR HEMOGLOBIN 34.1 pg (27.0-31.0); MEAN CORPUSCULAR HGB CONC 34.1 pg (28.0-36.0); MEAN PLATELET VOLUME 8.3 fl; MONOCYTE ABSOLUTE 0.2 Th/cmm (0.3-1.0); NEUTROPHILE ABSOLUTE 5.2 Th/cmm (1.8-8.0); PLATELET COUNT 99 Th/cmm (150-400); RED BLOOD COUNT 4.15 Mil/cmm (3.80-5.10); RED CELL DISTRIBUTION WIDTH 15.1 % (11.5-20.0); WHITE BLOOD COUNT 6.1 Th/cmm (4.8-10.8)
[2018-04-22] MEDS ORDERED: D5-0.45NS w/20 mEq KCL 1,000 ML IV SCH (07:30)
--- NOTE | 2018-04-22 07:32 | General Progress Note ---
Subjective - Review of Systems Service Date: 04/22/18 Subjective: Patient was seen and examined. persistent respiratory failure slowly improving now off BiPAP. Patient opening her eyes. failed repeat swallow eval. For gtube possible gtube placement when more stable. Poor PO intake. will continue IV fluids, IV antibiotics. Objective - Results Result Diagrams: 04/22/18 05:15 04/22/18 05:15 Recent Labs: Laboratory Last Values WBC 6.1 Th/cmm (4.8-10.8) 04/22/18 05:15 RBC 4.15 Mil/cmm (3.80-5.10) 04/22/18 05:15 Hgb 14.2 gm/dL (12-16) 04/22/18 05:15 Hct 41.5 % (41.0-60) 04/22/18 05:15 MCV 99.9 fl (81-100) 04/22/18 05:15 MCH 34.1 pg (27.0-31.0) H 04/22/18 05:15 MCHC Differential 34.1 pg (28.0-36.0) 04/22/18 05:15 RDW 15.1 % (11.5-20.0) 04/22/18 05:15 Plt Count 99 Th/cmm (150-400) L 04/22/18 05:15 MPV 8.3 fl 04/22/18 05:15 Add Manual Diff YES 04/21/18 05:05 Neutrophils % 85.2 % (40.0-80.0) H 04/22/18 05:15 Band Neutrophils % 1 % (0-10) 04/21/18 05:05 Lymphocytes % 11.8 % (20.0-50.0) L 04/22/18 05:15 Monocytes % 2.8 % (2.0-10.0) 04/22/18 05:15 Eosinophils % 0.1 % (0.0-5.0) 04/22/18 05:15 Basophils % 0.1 % (0.0-2.0) 04/22/18 05:15 Neutrophils (Manual) 89 % (40-80) H 04/21/18 05:05 Lymphocytes 6 % (20-50) L 04/21/18 05:05 Monocytes 4 % (2-10) 04/21/18 05:05 Platelet Estimate DECREASED PLATELETS (NORMAL) 04/21/18 05:05 PT 15.0 SECONDS (9.5-11.5) H 04/16/18 16:10 INR 1.41 (0.5-1.4) H 04/16/18 16:10 PTT (Actin FS) 23.1 SECONDS (26.0-38.0) L 04/16/18 16:10 Specimen Source Arterial 04/21/18 09:15 Sample Site Right Radial 04/21/18 09:15 pH 7.50 (7.35-7.45) H 04/21/18 09:15 pCO2 36.0 mmHg (35.0-45.0) 04/21/18 09:15 pO2 89.0 mmHg (80.0-100.0) 04/21/18 09:15 HCO3 28.7 mEq/L (20.0-26.0) H 04/21/18 09:15 Base Excess 4.8 mEq/L (-3.0-3.0) H 04/21/18 09:15 O2 Saturation 98.0 % (92.0-100.0) 04/21/18 09:15 Manjeet Test YES 04/21/18 09:15 Vent Rate 14 04/21/18 09:15 Inspired O2 40 04/21/18 09:15 Tidal Volume 300 04/21/18 09:15 PEEP NA 04/21/18 09:15 Pressure (ins/psv/peep) NA 04/21/18 09:15 Critical Value E.SHELLEY 04/21/18 09:15 Sodium 142 mEq/L (136-145) 04/22/18 05:15 Potassium 3.2 mEq/L (3.5-5.1) L 04/22/18 05:15 Chloride 108 mEq/L (98-107) H 04/22/18 05:15 Carbon Dioxide 26.2 mEq/L (21.0-31.0) 04/22/18 05:15 Anion Gap 11.0 (7.0-16.0) 04/22/18 05:15 BUN 13 mg/dL (7-25) 04/22/18 05:15 Creatinine 0.2 mg/dL (0.6-1.2) L 04/22/18 05:15 Est GFR ( Amer) > 60.0 ml/min (>90) 04/22/18 05:15 Est GFR (Non-Af Amer) > 60.0 ml/min 04/22/18 05:15 BUN/Creatinine Ratio 65.0 04/22/18 05:15 Glucose 192 mg/dL (70-105) H 04/22/18 05:15 Hemoglobin A1c % 6.1 % (4.0-6.0) H 04/19/18 04:40 Whole Bld Lactic Acid 1.93 mmol/L (0.60-1.99) 04/17/18 09:35 Calcium 8.0 mg/dL (8.6-10.3) L 04/22/18 05:15 Magnesium 2.1 mg/dL (1.9-2.7) 04/16/18 23:40 Total Bilirubin 1.1 mg/dL (0.3-1.0) H 04/22/18 05:15 Direct Bilirubin 0.16 mg/dL (0.0-0.2) 04/18/18 05:00 AST 24 U/L (13-39) 04/22/18 05:15 ALT 32 U/L (7-52) 04/22/18 05:15 Alkaline Phosphatase 46 U/L (34-104) 04/22/18 05:15 Ammonia 33 umol/L (16-53) 04/20/18 06:00 Troponin I 0.05 ng/mL (0.01-0.05) 04/16/18 16:10 B-Natriuretic Peptide 24.0 pg/mL (5.0-100.0) 04/20/18 06:00 Total Protein 4.1 gm/dL (6.0-8.3) L 04/22/18 05:15 Albumin 2.3 gm/dL (3.7-5.3) L 04/22/18 05:15 Globulin 1.8 gm/dL 04/22/18 05:15 Albumin/Globulin Ratio 1.3 (1.0-1.8) 04/22/18 05:15 Tumor Marker AFP 7.5 ng/mL (0.0-8.3) 04/20/18 06:00 TSH 8.06 uIU/ml (0.34-5.60) H 04/16/18 16:10 Urine Source [place] 04/17/18 00:15 Urine Color YELLOW 04/17/18 00:15 Urine Clarity HAZY (CLEAR) 04/17/18 00:15 Urine pH 6.0 (4.6 - 8.0) 04/17/18 00:15 Ur Specific [place] 1.025 (1.005-1.030) 04/17/18 00:15 Urine Protein 100 mg/dL (NEGATIVE) H 04/17/18 00:15 Urine Glucose (UA) NEGATIVE mg/dL (NEGATIVE) 04/17/18 00:15 Urine Ketones TRACE mg/dL (NEGATIVE) 04/17/18 00:15 Urine Blood MODERATE (NEGATIVE) H 04/17/18 00:15 Urine Nitrate NEGATIVE (NEGATIVE) 04/17/18 00:15 Urine Bilirubin SMALL (NEGATIVE) H 04/17/18 00:15 Urine Urobilinogen 1.0 E.U./dL (0.2 - 1.0) 04/17/18 00:15 Ur Leukocyte Esterase NEGATIVE (NEGATIVE) 04/17/18 00:15 Urine RBC 5-10 /hpf (0-5) H 04/17/18 00:15 Urine WBC 0-2 /hpf (0-5) 04/17/18 00:15 Ur Epithelial Cells FEW /lpf (FEW) 04/17/18 00:15 Urine Bacteria NONE SEEN /hpf (NONE SEEN) 04/17/18 00:15 Valproic Acid 86.6 ug/mL (50.0-100.0) 04/16/18 16:10 Levetiracetam 38.6 04/16/18 16:10 Hepatitis A IgM Ab Negative (Negative) 04/20/18 06:00 Hep Bs Antigen Negative (Negative) 04/20/18 06:00 Hep B Core IgM Ab Negative (Negative) 04/20/18 06:00 Hepatitis C Antibody <0.1 s/co ratio (0.0-0.9) 04/20/18 06:00 - Physical Exam Vitals and I&O: Vital Signs Temp 97.7 F 04/22/18 04:00 Pulse 90 04/22/18 06:00 Resp 18 04/22/18 06:00 BP 125/81 04/21/18 20:00 Pulse Ox 94 04/22/18 06:00 Intake & Output 0704/22/18 04/22/18 18:59 06:59 18:59 Intake Total 105 1000 Balance 105 1000 Weight (lbs) 76.657 kg Intake: Intake, IV Amount 105 1000 D5-0.45NS 1,000 ml @ 50 1000 mls/hr IV .Q20H [facility] Rx#: [id number] Levetiracetam 500 mg In 105 Sodium Chloride 0.9% 100 ml @ 400 mls/hr IV Q12H [facility] Rx#:[id number] Other: Stool Characteristics Soft Weight Source Bedscale Active Medications: Current Medications Albuterol/Ipratropium (Duoneb Neb) 3 ml HHN Q3H [facility] Stop: 06/16/18 00:00 Last Admin: 04/22/18 05:47 Dose: 3 ml Amlodipine Besylate (Norvasc) 10 mg PO DAILY [facility] Stop: 06/16/18 08:59 Last Admin: 04/21/18 08:45 Dose: Not Given Bisacodyl (Dulcolax 10 Mg Supp) 10 mg RC DAILY PRN PRN Reason: Constipation Stop: 06/15/18 21:42 Budesonide (Pulmicort) 0.5 mg HHN BIDRT [facility] Stop: 06/16/18 00:00 Last Admin: 04/22/18 06:00 Dose: 0.5 mg Cyanocobalamin (Vitamin B12) 100 mcg PO DAILY [facility] Stop: 06/16/18 08:59 Last Admin: 04/21/18 08:16 Dose: Not Given Divalproex Sodium (Depakote Er) 500 mg PO BID [facility]; Protocol Stop: 06/16/18 08:59 Last Admin: 04/21/18 16:24 Dose: Not Given Docusate Sodium (Colace) 100 mg PO DAILY PRN PRN Reason: STOOL SOFTENER Stop: 06/15/18 22:29 Enalaprilat (Vasotec) 1.25 mg IVP Q6HR PRN PRN Reason: INCREASED HEART RATE Stop: 06/17/18 17:59 Last Admin: 04/19/18 12:19 Dose: 1.25 mg Furosemide (Lasix) 20 mg IVP DAILY [facility] Stop: 06/20/18 08:59 Last Admin: 04/21/18 09:06 Dose: 20 mg Ceftriaxone Sodium 1 gm/ (Dextrose) 50 mls @ 100 mls/hr IV Q24H [facility] Stop: 06/15/18 21:29 Last Admin: 04/21/18 22:31 Dose: 100 mls/hr Levetiracetam 500 mg/ Sodium (Chloride) 105 mls @ 400 mls/hr IV Q12H [facility] Stop: 06/17/18 21:59 Last Admin: 04/21/18 22:30 Dose: 400 mls/hr Azithromycin 500 mg/ Sodium (Chloride) 250 mls @ 250 mls/hr IV Q24H [facility] Stop: 06/18/18 08:59 Last Admin: 04/21/18 09:45 Dose: 250 mls/hr Potassium Chloride/Dextrose/Sod Cl (D5-0.45ns W/20 Meq Kcl) 1,000 mls @ 50 mls/ hr IV .Q20H [facility] Stop: 06/21/18 07:29 Levothyroxine Sodium (Synthroid) 0.05 mg PO QDAC COUNT [facility] Stop: 06/17/18 07:29 Last Admin: 04/21/18 07:33 Dose: Not Given Methylprednisolone Sodium Succinate (Solu-Medrol) 40 mg IV Q8HR [facility] Stop: 06/16/18 00:00 Last Admin: 04/22/18 04:24 Dose: 40 mg Metoprolol Tartrate (Lopressor) 25 mg PO BID [facility] Stop: 06/16/18 08:59 Last Admin: 04/21/18 16:40 Dose: Not Given Miscellaneous (Probiotic Screen) 1 ea MC PRN PRN PRN Reason: PROTOCOL Stop: 06/18/18 07:29 Morphine Sulfate (Morphine) 2 mg IVP Q6H PRN PRN Reason: MODERATE PAIN Stop: 06/17/18 13:02 Last Admin: 04/20/18 05:14 Dose: 2 mg Quetiapine Fumarate (Seroquel) 12.5 mg PO BID [facility]; Protocol Stop: 06/16/18 08:59 Last Admin: 04/21/18 16:48 Dose: Not Given Simvastatin (Zocor) 10 mg PO HS [facility]; Protocol Stop: 06/16/18 20:59 Last Admin: 04/21/18 22:28 Dose: Not Given General: Alert, No acute distress HEENT: Atraumatic Neck: Supple Cardiovascular: Regular rate Lungs: Other (decreased lung sounds) Abdomen: Bowel sounds, Soft, no Tender, no Hepatomegaly, no Distended, no Rebound, no Guarding Extremities: no Clubbing, no Cyanosis, no Edema Neurological: Normal gait, Normal speech Assessment/Plan - Assessment Assessment: LLL pneumonia persistent respiratory failure hypokalemia cardiac arrthymmia poor oral intake abdominal mass Sepsis UTI leukocytosis Willie. pleural effusion CVA w/ hemiplegia Seizure disorder HTN Hyperlipidemia CAD PUD GERD OA - Plan Plan: pulmonary consult w/ Dr. Gato Jiménez IV Rocephin and IV Azithromycin for repeat swallow evaluation repeat CBC, CMP breathing treatments K+ supplements ID consult Cardiology consult chest xray today Nutritional Asmnt/Malnutr-PDOC - Dietary Evaluation Malnutrition Findings (Please click <Entered> for more info): Nutritional Asmnt/Malnutrition Start: 04/18/18 17: 58 Text: Status: Complete Freq: Protocol: Document 04/18/18 17:58 LCHENG (Rec: 04/18/18 18:07 [email or web address]) Nutritional Asmnt/Malnutrition Patient General Information Nutritional Screening High Risk Consult Diagnosis right lower lob NPA, bilateral pleural effus Pertinent Medical Hx/Surgical Hx CAD, HTN, hyperlipidemia, CVA, seizure, aphasia, GERD, anxiety, OA, healues, weakness , muscle atrophy Subjective Information Consult received for pt not tolerating diet. Per RN, pt failed swallow eval. Wait for family desicion about PEG. Current Diet Order/ Nutrition Support NPO Pertinent Medications vit B12, colace, synthroid, D5 -0.45ns w 20meq kcal, seroquel , Pertinent Labs 04/18 Na 146, Cl 108, Cr 0.4, glucose 179, Ca 8.1 Nutritional Hx/Data Height 1.57 m Height (Calculated Centimeters) 157.5 Current Weight (lbs) 56.699 kg Weight (Calculated Kilograms) 56.7 Weight (Calculated Grams) 37321.0 [place] Body Weight 110 Body Mass Index (BMI) 22.8 Weight Status Approriate GI Symptoms GI Symptoms None Last BM none Difficult in: Chewing Swallowing Skin Integrity/Comment: rash multiple sites Current %PO Negligible < 25% Estimated Nutritional Goals BEE in Kcals: Using Current wt Calories/Kcals/Kg 25-30 Kcals Calculated 9816-4766 Protein: Using Current wt Protein g/k Protein Calculated 57 Fluid: ml 1425-1710ml (1ml/kcal) Nutritional Problem 1. Problem Problem chewing/swallowing difficulty Etiology ?lethargy, ?cognition Signs/Symptoms: pt failed swallow eval Intervention/Recommendation Comments 1. Monitor NPO status. Consider alternative nutrition route. Wait for family decision. 2. Monitor PO intake, wt, labs and skin integrity 3. F/U as high risk in 2-3 days, 04/20-04/21 Expected Outcomes/Goals Expected Outcomes/Goals 1. PO to meet at least 75% of nutritional needs. 2. Wt stability, skin to remain intact, labs to approach WNL.
[2018-04-22] MEDS: Levothyroxine 0.05 Mg Tab PO SCH (08:48)
[2018-04-22] MEDS: Multivitamin w/ Minerals Tab PO SCH (08:49)
[2018-04-22] MEDS: Azithromycin 500 MG in Sodium Chloride 0.9% 250 ML IV SCH (08:56)
--- NOTE | 2018-04-22 09:21 | GI Progress Note ---
Subjective - Review of Systems Service Date: 04/22/18 Subjective: Pt now off BiPAP during the day, on at night only Objective - Results Result Diagrams: 04/22/18 05:15 04/22/18 05:15 Recent Labs: Laboratory Last Values WBC 6.1 Th/cmm (4.8-10.8) 04/22/18 05:15 RBC 4.15 Mil/cmm (3.80-5.10) 04/22/18 05:15 Hgb 14.2 gm/dL (12-16) 04/22/18 05:15 Hct 41.5 % (41.0-60) 04/22/18 05:15 MCV 99.9 fl (81-100) 04/22/18 05:15 MCH 34.1 pg (27.0-31.0) H 04/22/18 05:15 MCHC Differential 34.1 pg (28.0-36.0) 04/22/18 05:15 RDW 15.1 % (11.5-20.0) 04/22/18 05:15 Plt Count 99 Th/cmm (150-400) L 04/22/18 05:15 MPV 8.3 fl 04/22/18 05:15 Add Manual Diff YES 04/21/18 05:05 Neutrophils % 85.2 % (40.0-80.0) H 04/22/18 05:15 Band Neutrophils % 1 % (0-10) 04/21/18 05:05 Lymphocytes % 11.8 % (20.0-50.0) L 04/22/18 05:15 Monocytes % 2.8 % (2.0-10.0) 04/22/18 05:15 Eosinophils % 0.1 % (0.0-5.0) 04/22/18 05:15 Basophils % 0.1 % (0.0-2.0) 04/22/18 05:15 Neutrophils (Manual) 89 % (40-80) H 04/21/18 05:05 Lymphocytes 6 % (20-50) L 04/21/18 05:05 Monocytes 4 % (2-10) 04/21/18 05:05 Platelet Estimate DECREASED PLATELETS (NORMAL) 04/21/18 05:05 PT 15.0 SECONDS (9.5-11.5) H 04/16/18 16:10 INR 1.41 (0.5-1.4) H 04/16/18 16:10 PTT (Actin FS) 23.1 SECONDS (26.0-38.0) L 04/16/18 16:10 Specimen Source Arterial 04/21/18 09:15 Sample Site Right Radial 04/21/18 09:15 pH 7.50 (7.35-7.45) H 04/21/18 09:15 pCO2 36.0 mmHg (35.0-45.0) 04/21/18 09:15 pO2 89.0 mmHg (80.0-100.0) 04/21/18 09:15 HCO3 28.7 mEq/L (20.0-26.0) H 04/21/18 09:15 Base Excess 4.8 mEq/L (-3.0-3.0) H 04/21/18 09:15 O2 Saturation 98.0 % (92.0-100.0) 04/21/18 09:15 Manjeet Test YES 04/21/18 09:15 Vent Rate 14 04/21/18 09:15 Inspired O2 40 04/21/18 09:15 Tidal Volume 300 04/21/18 09:15 PEEP NA 04/21/18 09:15 Pressure (ins/psv/peep) NA 04/21/18 09:15 Critical Value EKYLEEO 04/21/18 09:15 Sodium 142 mEq/L (136-145) 04/22/18 05:15 Potassium 3.2 mEq/L (3.5-5.1) L 04/22/18 05:15 Chloride 108 mEq/L (98-107) H 04/22/18 05:15 Carbon Dioxide 26.2 mEq/L (21.0-31.0) 04/22/18 05:15 Anion Gap 11.0 (7.0-16.0) 04/22/18 05:15 BUN 13 mg/dL (7-25) 04/22/18 05:15 Creatinine 0.2 mg/dL (0.6-1.2) L 04/22/18 05:15 Est GFR ( Amer) > 60.0 ml/min (>90) 04/22/18 05:15 Est GFR (Non-Af Amer) > 60.0 ml/min 04/22/18 05:15 BUN/Creatinine Ratio 65.0 04/22/18 05:15 Glucose 192 mg/dL (70-105) H 04/22/18 05:15 Hemoglobin A1c % 6.1 % (4.0-6.0) H 04/19/18 04:40 Whole Bld Lactic Acid 1.93 mmol/L (0.60-1.99) 04/17/18 09:35 Calcium 8.0 mg/dL (8.6-10.3) L 04/22/18 05:15 Magnesium 1.7 mg/dL (1.9-2.7) L 04/22/18 05:15 Total Bilirubin 1.1 mg/dL (0.3-1.0) H 04/22/18 05:15 Direct Bilirubin 0.16 mg/dL (0.0-0.2) 04/18/18 05:00 AST 24 U/L (13-39) 04/22/18 05:15 ALT 32 U/L (7-52) 04/22/18 05:15 Alkaline Phosphatase 46 U/L (34-104) 04/22/18 05:15 Ammonia 33 umol/L (16-53) 04/20/18 06:00 Troponin I 0.05 ng/mL (0.01-0.05) 04/16/18 16:10 B-Natriuretic Peptide 24.0 pg/mL (5.0-100.0) 04/20/18 06:00 Total Protein 4.1 gm/dL (6.0-8.3) L 04/22/18 05:15 Albumin 2.3 gm/dL (3.7-5.3) L 04/22/18 05:15 Globulin 1.8 gm/dL 04/22/18 05:15 Albumin/Globulin Ratio 1.3 (1.0-1.8) 04/22/18 05:15 Tumor Marker AFP 7.5 ng/mL (0.0-8.3) 04/20/18 06:00 TSH 8.06 uIU/ml (0.34-5.60) H 04/16/18 16:10 Urine Source RAMOS PORT 04/17/18 00:15 Urine Color YELLOW 04/17/18 00:15 Urine Clarity HAZY (CLEAR) 04/17/18 00:15 Urine pH 6.0 (4.6 - 8.0) 04/17/18 00:15 Ur Specific Nixon 1.025 (1.005-1.030) 04/17/18 00:15 Urine Protein 100 mg/dL (NEGATIVE) H 04/17/18 00:15 Urine Glucose (UA) NEGATIVE mg/dL (NEGATIVE) 04/17/18 00:15 Urine Ketones TRACE mg/dL (NEGATIVE) 04/17/18 00:15 Urine Blood MODERATE (NEGATIVE) H 04/17/18 00:15 Urine Nitrate NEGATIVE (NEGATIVE) 04/17/18 00:15 Urine Bilirubin SMALL (NEGATIVE) H 04/17/18 00:15 Urine Urobilinogen 1.0 E.U./dL (0.2 - 1.0) 04/17/18 00:15 Ur Leukocyte Esterase NEGATIVE (NEGATIVE) 04/17/18 00:15 Urine RBC 5-10 /hpf (0-5) H 04/17/18 00:15 Urine WBC 0-2 /hpf (0-5) 04/17/18 00:15 Ur Epithelial Cells FEW /lpf (FEW) 04/17/18 00:15 Urine Bacteria NONE SEEN /hpf (NONE SEEN) 04/17/18 00:15 Valproic Acid 86.6 ug/mL (50.0-100.0) 04/16/18 16:10 Levetiracetam 38.6 04/16/18 16:10 Hepatitis A IgM Ab Negative (Negative) 04/20/18 06:00 Hep Bs Antigen Negative (Negative) 04/20/18 06:00 Hep B Core IgM Ab Negative (Negative) 04/20/18 06:00 Hepatitis C Antibody <0.1 s/co ratio (0.0-0.9) 04/20/18 06:00 - Physical Exam Vitals and I&O: Vital Signs Temp 97.7 F 04/22/18 04:00 Pulse 100 04/22/18 08:56 Resp 18 04/22/18 06:00 BP 139/111 04/22/18 08:56 Pulse Ox 94 04/22/18 06:00 Intake & Output 04/21/18 04/22/18 04/22/18 18:59 06:59 18:59 Intake Total 355 1000 Balance 355 1000 Weight (lbs) 76.657 kg Intake: Intake, IV Amount 355 1000 Azithromycin 500 mg In 250 Sodium Chloride 0.9% 250 ml @ 250 mls/hr IV Q24H REPLACED BY [facility] Rx#:[id number] D5-0.45NS 1,000 ml @ 50 1000 mls/hr IV .Q20H REPLACED BY [facility] Rx#: [id number] Levetiracetam 500 mg In 105 Sodium Chloride 0.9% 100 ml @ 400 mls/hr IV Q12H REPLACED BY [facility] Rx#:[id number] Other: Stool Characteristics Soft Weight Source Bedscale Active Medications: Current Medications Albuterol/Ipratropium (Duoneb Neb) 3 ml HHN Q3H REPLACED BY [facility] Stop: 06/16/18 00:00 Last Admin: 04/22/18 05:47 Dose: 3 ml Amlodipine Besylate (Norvasc) 10 mg PO DAILY REPLACED BY [facility] Stop: 06/16/18 08:59 Last Admin: 04/22/18 08:48 Dose: Not Given Bisacodyl (Dulcolax 10 Mg Supp) 10 mg RC DAILY PRN PRN Reason: Constipation Stop: 06/15/18 21:42 Budesonide (Pulmicort) 0.5 mg HHN BIDRT REPLACED BY [facility] Stop: 06/16/18 00:00 Last Admin: 04/22/18 06:00 Dose: 0.5 mg Cyanocobalamin (Vitamin B12) 100 mcg PO DAILY REPLACED BY [facility] Stop: 06/16/18 08:59 Last Admin: 04/22/18 08:48 Dose: Not Given Divalproex Sodium (Depakote Er) 500 mg PO BID REPLACED BY [facility]; Protocol Stop: 06/16/18 08:59 Last Admin: 04/22/18 08:49 Dose: Not Given Docusate Sodium (Colace) 100 mg PO DAILY PRN PRN Reason: STOOL SOFTENER Stop: 06/15/18 22:29 Enalaprilat (Vasotec) 1.25 mg IVP Q6HR PRN PRN Reason: INCREASED HEART RATE Stop: 06/17/18 17:59 Last Admin: 04/22/18 08:56 Dose: 1.25 mg Furosemide (Lasix) 20 mg IVP DAILY REPLACED BY [facility] Stop: 06/20/18 08:59 Last Admin: 04/22/18 08:56 Dose: 20 mg Ceftriaxone Sodium 1 gm/ (Dextrose) 50 mls @ 100 mls/hr IV Q24H REPLACED BY [facility] Stop: 06/15/18 21:29 Last Admin: 04/21/18 22:31 Dose: 100 mls/hr Levetiracetam 500 mg/ Sodium (Chloride) 105 mls @ 400 mls/hr IV Q12H REPLACED BY [facility] Stop: 06/17/18 21:59 Last Admin: 04/21/18 22:30 Dose: 400 mls/hr Azithromycin 500 mg/ Sodium (Chloride) 250 mls @ 250 mls/hr IV Q24H REPLACED BY [facility] Stop: 06/18/18 08:59 Last Admin: 04/22/18 08:56 Dose: 250 mls/hr Potassium Chloride/Dextrose/Sod Cl (D5-0.45ns W/20 Meq Kcl) 1,000 mls @ 50 mls/ hr IV .Q20H REPLACED BY [facility] Stop: 06/21/18 07:29 Last Admin: 04/22/18 09:08 Dose: 50 mls/hr Levothyroxine Sodium (Synthroid) 0.05 mg PO QDAC REPLACED BY [facility] Stop: 06/17/18 07:29 Last Admin: 04/22/18 08:48 Dose: Not Given Methylprednisolone Sodium Succinate (Solu-Medrol) 40 mg IV Q8HR REPLACED BY [facility] Stop: 06/16/18 00:00 Last Admin: 04/22/18 04:24 Dose: 40 mg Metoprolol Tartrate (Lopressor) 25 mg PO BID REPLACED BY [facility] Stop: 06/16/18 08:59 Last Admin: 04/22/18 08:50 Dose: Not Given Miscellaneous (Probiotic Screen) 1 ea MC PRN PRN PRN Reason: PROTOCOL Stop: 06/18/18 07:29 Morphine Sulfate (Morphine) 2 mg IVP Q6H PRN PRN Reason: MODERATE PAIN Stop: 06/17/18 13:02 Last Admin: 04/20/18 05:14 Dose: 2 mg Quetiapine Fumarate (Seroquel) 12.5 mg PO BID REPLACED BY [facility]; Protocol Stop: 06/16/18 08:59 Last Admin: 04/22/18 08:49 Dose: Not Given Simvastatin (Zocor) 10 mg PO HS REPLACED BY [facility]; Protocol Stop: 06/16/18 20:59 Last Admin: 04/21/18 22:28 Dose: Not Given General: Alert, No acute distress HEENT: Atraumatic Neck: Supple Cardiovascular: Regular rate Lungs: Other (decreased lung sounds) Abdomen: Bowel sounds, Soft, no Tender, no Hepatomegaly, no Distended, no Rebound, no Guarding Extremities: no Clubbing, no Cyanosis, no Edema Neurological: Normal gait, Normal speech Assessment/Plan - Assessment Assessment: # Dysphagia, failed swallow eval # Pneumonia # Respiratory compromise, requiring BiPAP # Liver lesion Pt likely will need G tube for enteral feeding given she has failed swallowing eval. She has failed another swallow eval on 04/21, although pt still with respiratory compromise In terms of the liver lesion, unclear if this is a large hemangioma vs HCC vs cyst. A triple phase CT scan will be necessary, as this diagnosis is typically made radiographically. AFP is 7.5, and viral hepatitis labs are negative. Plan: - Now that pt is only requiring BiPAP at night, we can likely place G tube on Wednesday (04/25) as long as her respiratory status remains stable (and if family consents) - suggest CT triple phase after respiratory status improves to classify the liver lesion. Maybe this can be done today as she is off BiPAP now - mgmt of pneumonia and respiratory status as per other consultants
--- NOTE | 2018-04-22 11:27 | Infectious Disease Prog Note ---
Infectious Disease Subjective - Review of Systems Service Date: 04/22/18 Subjective: No fever. Short of breath. On BiPAP. Infectious Disease Objective - Results Result Diagrams: 04/22/18 05:15 04/22/18 05:15 Recent Labs: Laboratory Last Values WBC 6.1 Th/cmm (4.8-10.8) 04/22/18 05:15 RBC 4.15 Mil/cmm (3.80-5.10) 04/22/18 05:15 Hgb 14.2 gm/dL (12-16) 04/22/18 05:15 Hct 41.5 % (41.0-60) 04/22/18 05:15 MCV 99.9 fl (81-100) 04/22/18 05:15 MCH 34.1 pg (27.0-31.0) H 04/22/18 05:15 MCHC Differential 34.1 pg (28.0-36.0) 04/22/18 05:15 RDW 15.1 % (11.5-20.0) 04/22/18 05:15 Plt Count 99 Th/cmm (150-400) L 04/22/18 05:15 MPV 8.3 fl 04/22/18 05:15 Add Manual Diff YES 04/21/18 05:05 Neutrophils % 85.2 % (40.0-80.0) H 04/22/18 05:15 Band Neutrophils % 1 % (0-10) 04/21/18 05:05 Lymphocytes % 11.8 % (20.0-50.0) L 04/22/18 05:15 Monocytes % 2.8 % (2.0-10.0) 04/22/18 05:15 Eosinophils % 0.1 % (0.0-5.0) 04/22/18 05:15 Basophils % 0.1 % (0.0-2.0) 04/22/18 05:15 Neutrophils (Manual) 89 % (40-80) H 04/21/18 05:05 Lymphocytes 6 % (20-50) L 04/21/18 05:05 Monocytes 4 % (2-10) 04/21/18 05:05 Platelet Estimate DECREASED PLATELETS (NORMAL) 04/21/18 05:05 PT 15.0 SECONDS (9.5-11.5) H 04/16/18 16:10 INR 1.41 (0.5-1.4) H 04/16/18 16:10 PTT (Actin FS) 23.1 SECONDS (26.0-38.0) L 04/16/18 16:10 Specimen Source Arterial 04/21/18 09:15 Sample Site Right Radial 04/21/18 09:15 pH 7.50 (7.35-7.45) H 04/21/18 09:15 pCO2 36.0 mmHg (35.0-45.0) 04/21/18 09:15 pO2 89.0 mmHg (80.0-100.0) 04/21/18 09:15 HCO3 28.7 mEq/L (20.0-26.0) H 04/21/18 09:15 Base Excess 4.8 mEq/L (-3.0-3.0) H 04/21/18 09:15 O2 Saturation 98.0 % (92.0-100.0) 04/21/18 09:15 Manjeet Test YES 04/21/18 09:15 Vent Rate 14 04/21/18 09:15 Inspired O2 40 04/21/18 09:15 Tidal Volume 300 04/21/18 09:15 PEEP NA 04/21/18 09:15 Pressure (ins/psv/peep) NA 04/21/18 09:15 Critical Value EKYLEEO 04/21/18 09:15 Sodium 142 mEq/L (136-145) 04/22/18 05:15 Potassium 3.2 mEq/L (3.5-5.1) L 04/22/18 05:15 Chloride 108 mEq/L (98-107) H 04/22/18 05:15 Carbon Dioxide 26.2 mEq/L (21.0-31.0) 04/22/18 05:15 Anion Gap 11.0 (7.0-16.0) 04/22/18 05:15 BUN 13 mg/dL (7-25) 04/22/18 05:15 Creatinine 0.2 mg/dL (0.6-1.2) L 04/22/18 05:15 Est GFR ( Amer) > 60.0 ml/min (>90) 04/22/18 05:15 Est GFR (Non-Af Amer) > 60.0 ml/min 04/22/18 05:15 BUN/Creatinine Ratio 65.0 04/22/18 05:15 Glucose 192 mg/dL (70-105) H 04/22/18 05:15 Hemoglobin A1c % 6.1 % (4.0-6.0) H 04/19/18 04:40 Whole Bld Lactic Acid 1.93 mmol/L (0.60-1.99) 04/17/18 09:35 Calcium 8.0 mg/dL (8.6-10.3) L 04/22/18 05:15 Magnesium 1.7 mg/dL (1.9-2.7) L 04/22/18 05:15 Total Bilirubin 1.1 mg/dL (0.3-1.0) H 04/22/18 05:15 Direct Bilirubin 0.16 mg/dL (0.0-0.2) 04/18/18 05:00 AST 24 U/L (13-39) 04/22/18 05:15 ALT 32 U/L (7-52) 04/22/18 05:15 Alkaline Phosphatase 46 U/L (34-104) 04/22/18 05:15 Ammonia 33 umol/L (16-53) 04/20/18 06:00 Troponin I 0.05 ng/mL (0.01-0.05) 04/16/18 16:10 B-Natriuretic Peptide 24.0 pg/mL (5.0-100.0) 04/20/18 06:00 Total Protein 4.1 gm/dL (6.0-8.3) L 04/22/18 05:15 Albumin 2.3 gm/dL (3.7-5.3) L 04/22/18 05:15 Globulin 1.8 gm/dL 04/22/18 05:15 Albumin/Globulin Ratio 1.3 (1.0-1.8) 04/22/18 05:15 Tumor Marker AFP 7.5 ng/mL (0.0-8.3) 04/20/18 06:00 TSH 8.06 uIU/ml (0.34-5.60) H 04/16/18 16:10 Urine Source RAMOS [place] 04/17/18 00:15 Urine Color YELLOW 04/17/18 00:15 Urine Clarity HAZY (CLEAR) 04/17/18 00:15 Urine pH 6.0 (4.6 - 8.0) 04/17/18 00:15 Ur Specific [place] 1.025 (1.005-1.030) 04/17/18 00:15 Urine Protein 100 mg/dL (NEGATIVE) H 04/17/18 00:15 Urine Glucose (UA) NEGATIVE mg/dL (NEGATIVE) 04/17/18 00:15 Urine Ketones TRACE mg/dL (NEGATIVE) 04/17/18 00:15 Urine Blood MODERATE (NEGATIVE) H 04/17/18 00:15 Urine Nitrate NEGATIVE (NEGATIVE) 04/17/18 00:15 Urine Bilirubin SMALL (NEGATIVE) H 04/17/18 00:15 Urine Urobilinogen 1.0 E.U./dL (0.2 - 1.0) 04/17/18 00:15 Ur Leukocyte Esterase NEGATIVE (NEGATIVE) 04/17/18 00:15 Urine RBC 5-10 /hpf (0-5) H 04/17/18 00:15 Urine WBC 0-2 /hpf (0-5) 04/17/18 00:15 Ur Epithelial Cells FEW /lpf (FEW) 04/17/18 00:15 Urine Bacteria NONE SEEN /hpf (NONE SEEN) 04/17/18 00:15 Valproic Acid 86.6 ug/mL (50.0-100.0) 04/16/18 16:10 Levetiracetam 38.6 04/16/18 16:10 Hepatitis A IgM Ab Negative (Negative) 04/20/18 06:00 Hep Bs Antigen Negative (Negative) 04/20/18 06:00 Hep B Core IgM Ab Negative (Negative) 04/20/18 06:00 Hepatitis C Antibody <0.1 s/co ratio (0.0-0.9) 04/20/18 06:00 - Physical Exam Vitals and I&O: Vital Signs Temp 97.7 F 04/22/18 04:00 Pulse 85 04/22/18 10:25 Resp 18 04/22/18 10:25 BP 139/111 04/22/18 08:56 Pulse Ox 94 04/22/18 10:25 Intake & Output 04/21/18 04/22/18 04/22/18 18:59 06:59 18:59 Intake Total 355 1000 Balance 355 1000 Weight (lbs) 76.657 kg Intake: Intake, IV Amount 355 1000 Azithromycin 500 mg In 250 Sodium Chloride 0.9% 250 ml @ 250 mls/hr IV Q[facility]H [facility] Rx#:[id number] D5-0.45NS 1,000 ml @ 50 1000 mls/hr IV .Q20H [facility] Rx#: [id number] Levetiracetam 500 mg In 105 Sodium Chloride 0.9% 100 ml @ 400 mls/hr IV Q12H [facility] Rx#:[id number] Other: Stool Characteristics Soft Weight Source Bedscale Active Medications: Current Medications Albuterol/Ipratropium (Duoneb Neb) 3 ml HHN Q3H [facility] Stop: 06/16/18 00:00 Last Admin: 04/22/18 10:24 Dose: 3 ml Amlodipine Besylate (Norvasc) 10 mg PO DAILY [facility] Stop: 06/16/18 08:59 Last Admin: 04/22/18 08:48 Dose: Not Given Bisacodyl (Dulcolax 10 Mg Supp) 10 mg RC DAILY PRN PRN Reason: Constipation Stop: 06/15/18 21:42 Budesonide (Pulmicort) 0.5 mg HHN BIDRT [facility] Stop: 06/16/18 00:00 Last Admin: 04/22/18 06:00 Dose: 0.5 mg Cyanocobalamin (Vitamin B12) 100 mcg PO DAILY [facility] Stop: 06/16/18 08:59 Last Admin: 04/22/18 08:48 Dose: Not Given Divalproex Sodium (Depakote Er) 500 mg PO BID [facility]; Protocol Stop: 06/16/18 08:59 Last Admin: 04/22/18 08:49 Dose: Not Given Docusate Sodium (Colace) 100 mg PO DAILY PRN PRN Reason: STOOL SOFTENER Stop: 06/15/18 22:29 Enalaprilat (Vasotec) 1.25 mg IVP Q6HR PRN PRN Reason: INCREASED HEART RATE Stop: 06/17/18 17:59 Last Admin: 04/22/18 08:56 Dose: 1.25 mg Furosemide (Lasix) 20 mg IVP DAILY [facility] Stop: 06/20/18 08:59 Last Admin: 04/22/18 08:56 Dose: 20 mg Ceftriaxone Sodium 1 gm/ (Dextrose) 50 mls @ 100 mls/hr IV Q24H [facility] Stop: 06/15/18 21:29 Last Admin: 04/21/18 22:31 Dose: 100 mls/hr Levetiracetam 500 mg/ Sodium (Chloride) 105 mls @ 400 mls/hr IV Q12H [facility] Stop: 06/17/18 21:59 Last Admin: 04/21/18 22:30 Dose: 400 mls/hr Azithromycin 500 mg/ Sodium (Chloride) 250 mls @ 250 mls/hr IV Q24H [facility] Stop: 06/18/18 08:59 Last Admin: 04/22/18 08:56 Dose: 250 mls/hr Potassium Chloride/Dextrose/Sod Cl (D5-0.45ns W/20 Meq Kcl) 1,000 mls @ 50 mls/ hr IV .Q20H [facility] Stop: 06/21/18 07:29 Last Admin: 04/22/18 09:08 Dose: 50 mls/hr Levothyroxine Sodium (Synthroid) 0.05 mg PO QDAC [facility] Stop: 06/17/18 07:29 Last Admin: 04/22/18 08:48 Dose: Not Given Methylprednisolone Sodium Succinate (Solu-Medrol) 40 mg IV Q8HR [facility] Stop: 06/16/18 00:00 Last Admin: 04/22/18 04:24 Dose: 40 mg Metoprolol Tartrate (Lopressor) 25 mg PO BID [facility] Stop: 06/16/18 08:59 Last Admin: 04/22/18 08:50 Dose: Not Given Miscellaneous (Probiotic Screen) 1 ea MC PRN PRN PRN Reason: PROTOCOL Stop: 06/18/18 07:29 Morphine Sulfate (Morphine) 2 mg IVP Q6H PRN PRN Reason: MODERATE PAIN Stop: 06/17/18 13:02 Last Admin: 04/20/18 05:14 Dose: 2 mg Quetiapine Fumarate (Seroquel) 12.5 mg PO BID [facility]; Protocol Stop: 06/16/18 08:59 Last Admin: 04/22/18 08:49 Dose: Not Given Simvastatin (Zocor) 10 mg PO HS [facility]; Protocol Stop: 06/16/18 20:59 Last Admin: 04/21/18 22:28 Dose: Not Given General: no acute distress, well developed, well nourished HEENT: atraumatic, normocephalic Neck: supple, no thyromegaly Cardiovascular: S1S2, regular Lungs: clear to auscultation bilaterally, clear to percussion Abdomen: soft, no tender, no distended Extremities: no cyanosis, no clubbing, no edema Neurological: awake, alert, oriented Skin: intact Infectious Disease Assmt/Plan - Assessment Assessment: 1. Lactic acidosis. Improved 2. Right lower lobe pneumonia. 3. Dementia. 4. Cerebrovascular accident. 5. Hypertension. - Plan Plan: Continue Rocephin and Zithromax. Nutritional Asmnt/Malnutr-PDOC - Dietary Evaluation Malnutrition Findings (Please click <Entered> for more info): Nutritional Asmnt/Malnutrition Start: 04/18/18 17: 58 Text: Status: Complete Freq: Protocol: Document 04/18/18 17:58 LCHENG (Rec: 04/18/18 18:07 [email or web address] [email or web address]) Nutritional Asmnt/Malnutrition Patient General Information Nutritional Screening High Risk Consult Diagnosis right lower lob NPA, bilateral pleural effus Pertinent Medical Hx/Surgical Hx CAD, HTN, hyperlipidemia, CVA, seizure, aphasia, GERD, anxiety, OA, healues, weakness , muscle atrophy Subjective Information Consult received for pt not tolerating diet. Per RN, pt failed swallow eval. Wait for family desicion about PEG. Current Diet Order/ Nutrition Support NPO Pertinent Medications vit B12, colace, synthroid, D5 -0.45ns w 20meq kcal, seroquel , Pertinent Labs 04/18 Na 146, Cl 108, Cr 0.4, glucose 179, Ca 8.1 Nutritional Hx/Data Height 1.57 m Height (Calculated Centimeters) 157.5 Current Weight (lbs) 56.699 kg Weight (Calculated Kilograms) 56.7 Weight (Calculated Grams) [address].0 [place] Body Weight 110 Body Mass Index (BMI) 22.8 Weight Status Approriate GI Symptoms GI Symptoms None Last BM none Difficult in: Chewing Swallowing Skin Integrity/Comment: rash multiple sites Current %PO Negligible < 25% Estimated Nutritional Goals BEE in Kcals: Using Current wt Calories/Kcals/Kg 25-30 Kcals Calculated 4022-6148 Protein: Using Current wt Protein g/k Protein Calculated 57 Fluid: ml 1425-1710ml (1ml/kcal) Nutritional Problem 1. Problem Problem chewing/swallowing difficulty Etiology ?lethargy, ?cognition Signs/Symptoms: pt failed swallow eval Intervention/Recommendation Comments 1. Monitor NPO status. Consider alternative nutrition route. Wait for family decision. 2. Monitor PO intake, wt, labs and skin integrity 3. F/U as high risk in 2-3 days, 04/20-04/21 Expected Outcomes/Goals Expected Outcomes/Goals 1. PO to meet at least 75% of nutritional needs. 2. Wt stability, skin to remain intact, labs to approach WNL.
[2018-04-22] MEDS ORDERED: Potassium Chloride 20 mEq ER Tab PO ONE (14:22)
[2018-04-22] MEDS ORDERED: Mag Sulfate 2gm/50mL Premix 2 GM/50 ML BAG IV ONE (15:49)
[2018-04-22] MEDS: KCL 20mEq/100mL Premix 20 MEQ/100 ML PIGGYBACK IV SCH ×2 (16:45→18:20)
[2018-04-23] MEDS: Albuterol/Ipratropium Neb 3 ML AERS HHN SCH (00:26)
--- NOTE | 2018-04-23 09:24 | Diagnostic Imaging Report ---
CT scan of the abdomen with and without intravenous contrast (multiphase) HISTORY: Hepatic mass Total DLP equals 1633 CTDI equals 42.0 Axial sections were obtained from the xiphoid process down to the iliac crests prior to administration of intravenous contrast. Subsequent axial sections were obtained following administration of intravenous contrast. Images obtained through the arterial and venous phases following injection. Delayed images also provided. Limited sections through the lower chest demonstrate small bilateral pleural effusions. Pulmonary parenchymal changes noted within the right and left lower lobes consistent with consolidation and/or atelectasis. The exam demonstrates an approximate 9.0 cm fairly well-circumscribed rounded somewhat hypodense mass originating within or immediately adjacent to the lateral segment of the left lobe of the liver. Following contrast administration. There is enhancement of a somewhat thin irregular peripheral wall. Density measurements are consistent with complex composition. Etiology uncertain. In addition, there are 2 hypodense lesions noted in the periphery of the posterior segment of the right lobe of the liver. The largest measures 1.5 cm. Delayed images demonstrate progressive enhancement Walls contrast administration. Changes may be associated with small hemangiomas. Intraluminal hyperdensity seen in the gallbladder. Findings may be associated with with vicarious excretion of contrast. Changes should be correlated with renal function tests. An ultrasound exam would provide for further assessment of gallbladder. There is an approximate 2.5 cm mass involving the right adrenal gland. Density measurements are indeterminate. Neoplasm cannot be excluded. An approximate 1.9 cm cyst extends off the lateral cortex of the left kidney. Degenerative changes are seen throughout the spine. There is partial compression involving the body of the lower thoracic vertebral body. Partial compression involves a lumbar vertebrae. An MRI exam would provide further assessment of the bony changes of needed. IMPRESSION: 1. 9.0 cm fairly well-circumscribed indeterminate mass originating within or immediately adjacent to the periphery of the left lobe of the liver. The appearance is indeterminate. 2. Small lesions within the periphery of the right lobe of the liver. Enhancement characteristics suggest possible hemangiomas. Follow up/monitoring recommended. 3. Intraluminal hyperdensity within the gallbladder. Findings may be associated with vicarious excretion of intravenous contrast. Correlation with renal function tests recommended. 4. Right adrenal mass. Neoplasm cannot be excluded 5. Degenerative changes throughout the spine with partial compression involving thoracic and lumbar vertebrae. If needed, a follow-up MRI exam would provide further assessment of the bony changes. 6. Small bilateral pleural effusions with pulmonary parenchymal changes within the right and left lower lobes consistent with consolidation and/or atelectasis.
--- NOTE | 2018-04-23 09:28 | Progress Notes ---
DATE: 04/22/2018 PULMONARY PROGRESS NOTE PROBLEM LIST: 1. Respiratory failure, probably tracheobronchitis. 2. Suspect obstructive sleep apnea syndrome. 3. Cerebrovascular accident and history suggestive of dysphagia. SYMPTOMS: ____ tolerating oxymizer reasonably well. No respiratory distress, etc. PHYSICAL EXAMINATION: VITAL SIGNS: The patient is afebrile, heart rate is 82-100, blood pressure is okay, saturation is 94 on 3 liters of oxymizer. ENT: Shows no new changes. CHEST: Shows diminished air entry without much of adventitious breath sounds. HEART: Regular. ABDOMEN: Soft, nontender. LABORATORY DATA: The patient's white count is 6.1, hemoglobin 14.2, potassium is 3.2, and albumin is 2.3. ASSESSMENT: The patient is clinically stable respiratory escobar, improving. PLANS AND SUGGESTIONS: We will continue current treatment. Family is inclined to consider to have a G-tube, which we will pass on to the associated nursing and Dr. Chandler. JOB# [id number]
--- NOTE | 2018-04-23 10:26 | Discharge Summary ---
DATE OF DISCHARGE: PRELIMINARY DIAGNOSES: 1. Right lower lobe pneumonia. 2. Lactic acidosis. 3. Acute respiratory failure, on BiPAP. 4. Dysphagia. 5. Dementia. 6. Cerebrovascular accident. 7. Large liver lesion. 8. Hypertension. 9. Sepsis. 10. Urinary tract infection. 11. Leukocytosis. DISCHARGE DIAGNOSES: 1. Right lower lobe pneumonia. 2. Lactic acidosis, now resolved. 3. Dysphagia. 4. Acute respiratory failure, improved. 5. Dementia. 6. Cerebrovascular accident. 7. Hypertension. 8. Large liver lesion. 9. Hypertension. 10. Sepsis. 12. Urinary tract infection, improved. 13. Leukocytosis, now improved. BRIEF HISTORY OF PRESENT ILLNESS: This is a 58-year-old female who presents to [facility] ER from a care home facility for increased shortness of breath and chest congestion noted at the facility. While in the ER, the patient had a CT of the chest, which revealed a right lower lobe pneumonia. The patient was then started on IV antibiotics and given breathing treatments and was subsequently placed on BiPAP. While in the ER, the patient had also lab work, which revealed elevated white count of 11.4, hemoglobin of 17.1, hematocrit 51.3, platelets of 144. PT/INR was noted to be 15.0 and 1.4. Sodium was 146, potassium was critically low at 2.6, BUN 17, creatinine 0.4, and glucose was 101. The patient also had thyroid level of 8.0. The patient was subsequently admitted for further evaluation and treatment. HOSPITAL COURSE: The patient was seen by Pulmonology. Please see dictated report. A repeat chest x-ray showed improvement of the right lower lobe. The patient continued on IV Rocephin and IV azithromycin. Repeat lab work was done. White count showed improvement initially noted at 10.4, which was repeated the following day and had increased at 13.9. This slowly decreased down to 6.7 on 04/21/2018. The patient was also noted to have low potassium initially, but was given IV K-riders, which improved her potassium to normal level. The patient was also found to have a large liver lesion on CT workup was done initially by Dr. Noriega AFP is being 7.5 and hepatitis panel was noted to be negative. The patient was to have a triple phase CT scan; however, the patient was transferred to long-term acute care for further evaluation and treatment. The patient was to have also G-tube placement pending the consent of the family members. The patient had a swallow evaluation that she failed twice. She was kept on IV fluids during her hospital stay given her risk for aspiration, but showed some improvement during her hospital stay. The patient also was seen and evaluated by Cardiology. Please see dictated report. JOB# [id number]
== END 2018-04-23 02:30 | DRG 871 ==
LOC: ER 15:53 → MSI 19:10 → TELE 04-17 01:13
PROVIDERS: ADMIT Family Medicine; ATTEND Family Medicine
PROC: 5A09557 Assistance with Respiratory Ventilation, Greater than 96 Consecutive Hours, Continuous Positive Airway Pressure (ICD-10-PCS; principal; 2018-04-17)
DX: A41.9 Sepsis, unspecified organism (principal); J18.1 Lobar pneumonia, unspecified organism; J96.01 Acute respiratory failure with hypoxia; N39.0 Urinary tract infection, site not specified; J90 Pleural effusion, not elsewhere classified; I69.959 Hemiplegia and hemiparesis following unspecified cerebrovascular disease affecting unspecified side; G82.20 Paraplegia, unspecified; J44.0 Chronic obstructive pulmonary disease with (acute) lower respiratory infection; E78.5 Hyperlipidemia, unspecified; I10 Essential (primary) hypertension; M19.90 Unspecified osteoarthritis, unspecified site; K21.9 Gastro-esophageal reflux disease without esophagitis; F03.90 Unspecified dementia, unspecified severity, without behavioral disturbance, psychotic disturbance, mood disturbance, and anxiety; Z66 Do not resuscitate; F29 Unspecified psychosis not due to a substance or known physiological condition; E11.9 Type 2 diabetes mellitus without complications; F31.9 Bipolar disorder, unspecified; F41.9 Anxiety disorder, unspecified; G40.909 Epilepsy, unspecified, not intractable, without status epilepticus; K27.9 Peptic ulcer, site unspecified, unspecified as acute or chronic, without hemorrhage or perforation; R16.0 Hepatomegaly, not elsewhere classified; R13.10 Dysphagia, unspecified; M81.0 Age-related osteoporosis without current pathological fracture; I25.119 Atherosclerotic heart disease of native coronary artery with unspecified angina pectoris; E87.6 Hypokalemia; K76.9 Liver disease, unspecified; Z68.23 Body mass index [BMI] 23.0-23.9, adult
CPT/HCPCS: 36415-UA; 36600-90; 71045-TC; 71046-TC; 71250-TC; 80048-TC; 80053-TC; 80074-90; 80164-TC; 80299-90; 81001-TC; 82105-90; 82140-TC; 82248-TC; 82803-TC; 83036-90; 83605; 83735-TC; 83880-TC; 84443-TC; 84484-TC; 85007-TC; 85025-TC; 85610-TC; 85730-TC; 87086-90; 90784; 93005; 94640; 94660; 94760; 96374; A4217; J0456; J0696; J1940; J1953; J2060; J2270; J2920; J3475; J3480; Q9967; X3401; Z7610